=== PATIENT | female | born 1970 | race Hispanic/Latino ===

== ENCOUNTER 2021-02-08 20:53 | Emergency (ER) | payer BC ==
--- OUTSIDE RECORDS SUMMARY | 2021-02-08 20:55 | XMS REPORT | Continuity of Care Document ---
:1970 Author Organization [facility] t Address [address] [place] [address] Care Team Providers Name Role Phone Pranav Peña MD Attending Clinician Problems This patient has no known problems. Allergies, Adverse Reactions, Alerts This patient has no known allergies or adverse reactions. Medications This patient has no known medications. Procedures This patient has no known procedures. Encounters Start End Encounter Admission Attending Care Care Encounter Source Date/Time Date/Time Type Type Clinicians Facility Department ID 2020-01-17 2020-01-17 Emergency CARLOS EDUARDO Peña [id number] 10:08:04 10:53:00 Pranav Diana [id number] [place] [id number] [place] [id number] Results This patient has no known results.
[2021-02-08] MEDS ORDERED: ONDANSETRON 4 MG/2 ML VIAL ONE (21:43)
[2021-02-08] MEDS ORDERED: MORPHINE 2 MG/ML SYR ONE (21:43)
[2021-02-08 21:49] LABS: Protime INR 0.92
[2021-02-08 21:50] LABS: Absolute Lymphocytes (CBC) 3.5 K/uL (0.7-4.9); Basophils % 0.6 % (0-1.3); Hematocrit 41.3 % (36.0-45.0); Lymphocytes % 32.7 % (15.3-44.8); MPV 7.4 fL (7.6-11.3); RBC Red Blood Cell Count 4.47 M/uL (3.86-4.86)
[2021-02-08 22:03] LABS: ALT/SGPT 25 U/L (12-78); AST/SGOT 15 U/L (15-37); Albumin 3.5 g/dL (3.4-5.0); Alkaline Phosphatase 109 U/L (45-117); BUN Blood Urea Nitrogen 16 mg/dL (7-18); Bicarbonate 26 mmol/L (21-32); Bilirubin Direct < 0.1 mg/dL (0-0.2); Bilirubin Total 0.2 mg/dL (0.2-1.0); Glucose Level 108 mg/dL (74-106); Magnesium 1.9 mg/dL (1.8-2.4); NT PRO-BNP 9 pg/mL (<125); Potassium 3.8 mmol/L (3.5-5.1); Protein, Total 7.1 g/dL (6.4-8.2); Sodium Level 141 mmol/L (136-145); Troponin (Emerg Dept Use Only) < 0.02 ng/mL (0.0-0.045)
[2021-02-09 00:41] LABS: Urine Bacteria LOADED /HPF (<20)
[2021-02-09 00:41] LABS: Urine Blood 3+ (NEG); Urine Glucose NEGATIVE (NEG); Urine Protein TRACE (NEG); Urine Specific Gravity 1.025 (1.005-1.030)
--- NOTE | 2021-02-09 00:41 | ER ---
Nurse's Notes [facility] Name: Carolina Rivera Age: 50 yrs Sex: Female : 1970 Arrival Date: 02/08/2021 Time: 20:57 Bed 7 Private MD: Diagnosis: Chest pain, unspecified;Urinary tract infection, site not specified Presentation: 02/08 21:20 Chief complaint: Patient states: Reports chest pain that has been going on for a week ea pt reports her symptoms worsened today. Coronavirus screen: At this time, the client does not indicate any symptoms associated with coronavirus-19. Ebola Screen: No symptoms or risks identified at this time. Initial Sepsis Screen: Does the patient meet any 2 criteria? No. Patient's initial sepsis screen is negative. Does the patient have a suspected source of infection? No. Patient's initial sepsis screen is negative. Risk Assessment: Do you want to hurt yourself or someone else? Patient reports no desire to harm self or others. 21:20 Acuity: DANETTE 3 ea 21:20 Method Of Arrival: Ambulatory ea 21:24 Onset of symptoms was February 08, 2021. ea Historical: - Allergies: 21:20 PENICILLINS; ea - Home Meds: 21:20 None [Active]; ea - PMHx: 21:20 None; ea - PSHx: 21:20 None; ea - Immunization history:: Adult Immunizations up to date. - Social history:: Smoking status: unknown. Screenin:20 Abuse screen: Denies threats or abuse. Nutritional screening: No deficits noted. ea Tuberculosis screening: No symptoms or risk factors identified. Fall Risk IV access (20 points). Assessment: 21:22 General: Appears in no apparent distress. Behavior is calm, cooperative, appropriate ea for age. Pain: Complains of pain in chest. Neuro: Level of Consciousness is awake, alert, obeys commands, Oriented to person, place, time, situation. Cardiovascular: Patient's skin is warm and dry. Respiratory: Airway is patent Respiratory effort is even, unlabored, Respiratory pattern is regular, symmetrical. Derm: Skin is pink, warm \T\ dry. 23:32 Reassessment: Patient and/or family updated on plan of care and expected duration. Pain ea level reassessed. Patient is alert, oriented x 3, equal unlabored respirations, skin warm/dry/pink. 02/09 00:51 Reassessment: Patient and/or family updated on plan of care and expected duration. Pain ea level reassessed. Patient is alert, oriented x 3, equal unlabored respirations, skin warm/dry/pink. Discharge instruction given patient, verbalized the understanding of instruction. Pt left ED ambulatory tolerating well. Vital Signs: 02/08 21:17 BP 169 / 99 LA Sitting (auto/reg); Pulse 84 MON; Resp 20 S; Temp 98.3(O); Pulse Ox 99% ds4 on R/A; Weight 63.5 kg; Height 5 ft. 4 in. (162.56 cm); Pain 5/10; 02/09 00:45 BP 130 / 70; Pulse 80; Resp 18; Pulse Ox 99% ; ea 02/08 21:17 Body Mass Index 24.03 (63.50 kg, 162.56 cm) ds4 ED Course: 02/08 20:57 Patient arrived in ED. am4 21:00 Maximiliano Chandler MD is Attending Physician. 7 21:15 Inserted saline lock: 20 gauge in right forearm, using aseptic technique. Blood ds4 collected. 21:19 Jessica Grissom, RN is Primary Nurse. ea 21:22 Triage completed. ea 21:22 Patient maintains SpO2 saturation greater than 95% on room air. ea 21:22 Patient has correct armband on for positive identification. Call light in reach. ea cafeteria monitor on. Pulse ox on. NIBP on. 21:44 XRAY Chest (1 view) In Process Unspecified. EDMS 02/09 00:40 Apolonia Araujo MD is Referral Physician. 7 00:50 IV discontinued, intact, bleeding controlled, No redness/swelling at site. Pressure ea dressing applied. 00:53 No provider procedures requiring assistance completed. ea Administered Medications: 00:52 Not Given (Patient Refused): morphine 2 mg IVP once; RASS on ADMIN: Combtv4, Very ea Agttd3, Agttd2, Rstlss1, AlertClm0, Drwsy-1, Lt Sdtn-2, Mod Sdtn-3, Dp Sdtn-4, UnArsble-5 00:52 Not Given (Patient Refused): Zofran (Ondansetron) 4 mg IVP once; over 2 minutes jamie Outcome: 00:40 Discharge ordered by . yuan 00:50 Discharged to home ambulatory. jamie 00:50 Condition: stable 00:50 Discharge instructions given to patient, Instructed on discharge instructions, follow up and referral plans. medication usage, Demonstrated understanding of instructions, follow-up care, medications, Prescriptions given X 2. 00:54 Patient left the ED. ea Addendum: 02/12/2021 10:21 Addendum: Culture Results: Positive urine culture. No further action required. Bacteria a a5 sensitive to prescribed antibiotic. Signatures: Dispatcher [employer] EDMS Jennifer Garvin RN RN aa5 Ebenezer Fontanez ds4 Jessica Grissom RN RN ea Holmes, Maurice, MD MD 7 Lizet Malagon am4
--- NOTE | 2021-02-09 00:41 | EDPHYS ---
Physician Documentation [facility] Name: Carolina Rivera Age: 50 yrs Sex: Female : 1970 Arrival Date: 02/08/2021 Time: 20:57 Bed 7 Private MD: ED Physician Maximiliano Chandler HPI: 02/08 21:27 This 50 yrs old Female presents to ER via Ambulatory with complaints of Chest mh7 Pain. 21:27 The patient or guardian reports chest pain that is located primarily in the anterior mh7 chest wall, left. Onset: 3 day(s) ago. 21:27 The pain does not radiate. mh7 21:28 Associated signs and symptoms: Pertinent negatives: abdominal pain, cough, diaphoresis, mh7 dizziness, headache, lower extremity pain, lower extremity swelling, lightheadedness, nausea, near syncope, palpitations, recent travel, shortness of breath, syncope, vomiting. The chest pain is described as a pressure. Duration: The patient or guardian reports multiple episodes, that are intermittent, that wax and wane. Modifying factors: The symptoms are alleviated by nothing. the symptoms are aggravated by nothing. Severity of pain: At its worst the pain was moderate last night, in the emergency department the pain is unchanged. Historical: - Allergies: 21:20 PENICILLINS; ea - Home Meds: 21:20 None [Active]; ea - PMHx: 21:20 None; ea - PSHx: 21:20 None; ea - Immunization history:: Adult Immunizations up to date. - Social history:: Smoking status: unknown. ROS: 21:28 Constitutional: Negative for fever, chills, and weight loss, Eyes: Negative for injury, mh7 pain, redness, and discharge, ENT: Negative for injury, pain, and discharge, Neck: Negative for injury, pain, and swelling, Respiratory: Negative for shortness of breath, cough, wheezing, and pleuritic chest pain, Abdomen/GI: Negative for abdominal pain, nausea, vomiting, diarrhea, and constipation, Back: Negative for injury and pain, : Negative for injury, bleeding, discharge, and swelling, MS/Extremity: Negative for injury and deformity, Skin: Negative for injury, rash, and discoloration, Neuro: Negative for headache, weakness, numbness, tingling, and seizure, Psych: Negative for depression, anxiety, suicide ideation, homicidal ideation, and hallucinations, Allergy/Immunology: Negative for hives, rash, and allergies, Endocrine: Negative for neck swelling, polydipsia, polyuria, polyphagia, and marked weight changes, Hematologic/Lymphatic: Negative for swollen nodes, abnormal bleeding, and unusual bruising. Exam: 21:28 Constitutional: This is a well developed, well nourished patient who is awake, alert, mh7 and in no acute distress. Head/Face: Normocephalic, atraumatic. Eyes: Pupils equal round and reactive to light, extra-ocular motions intact. Lids and lashes normal. Conjunctiva and sclera are non-icteric and not injected. Cornea within normal limits. Periorbital areas with no swelling, redness, or edema. Neck: Trachea midline, no thyromegaly or masses palpated, and no cervical lymphadenopathy. Supple, full range of motion without nuchal rigidity, or vertebral point tenderness. No Meningismus. Chest/axilla: Normal chest wall appearance and motion. Nontender with no deformity. No lesions are appreciated. Cardiovascular: Regular rate and rhythm with a normal S1 and S2. No gallops, murmurs, or rubs. Normal PMI, no JVD. No pulse deficits. Respiratory: Lungs have equal breath sounds bilaterally, clear to auscultation and percussion. No rales, rhonchi or wheezes noted. No increased work of breathing, no retractions or nasal flaring. Abdomen/GI: Soft, non-tender, with normal bowel sounds. No distension or tympany. No guarding or rebound. No evidence of tenderness throughout. Back: No spinal tenderness. No costovertebral tenderness. Full range of motion. Skin: Warm, dry with normal turgor. Normal color with no rashes, no lesions, and no evidence of cellulitis. MS/ Extremity: Pulses equal, no cyanosis. Neurovascular intact. Full, normal range of motion. Neuro: Awake and alert, GCS 15, oriented to person, place, time, and situation. Cranial nerves II-XII grossly intact. Motor strength 5/5 in all extremities. Sensory grossly intact. Cerebellar exam normal. Normal gait. Psych: Awake, alert, with orientation to person, place and time. Behavior, mood, and affect are within normal limits. 02/09 00:42 ECG was reviewed by the Attending Physician. 7 Vital Signs: 02/08 21:17 BP 169 / 99 LA Sitting (auto/reg); Pulse 84 MON; Resp 20 S; Temp 98.3(O); Pulse Ox 99% ds4 on R/A; Weight 63.5 kg; Height 5 ft. 4 in. (162.56 cm); Pain 5/10; 02/09 00:45 BP 130 / 70; Pulse 80; Resp 18; Pulse Ox 99% ; ea 02/08 21:17 Body Mass Index 24.03 (63.50 kg, 162.56 cm) ds4 MDM: 00:36 Differential diagnosis: acute myocardial infarction, acute pericarditis, anxiety, mh7 coronary artery disease chest wall pain, congestive heart failure costochondritis, myocarditis, pericarditis, pleurisy, pneumonia, pneumothorax, pulmonary embolus. HEART Score: History: Moderately Suspicious (1), ECG: Normal (0), Age: > 45 and < 65 years (1), Risk Factors: 1 or 2 risk factors (1), [Active Smoker] Troponin: < or = 1 x Normal Limit (0), Total Score = 3. The patient was given aspirin in the Emergency Department. Data reviewed: vital signs, nurses notes, lab test result(s), cardiac enzymes, CBC, electrolytes, urinalysis, EKG, radiologic studies, plain films. Data interpreted: Pulse oximetry: on room air is 99 %. Interpretation: normal. Counseling: I had a detailed discussion with the patient and/or guardian regarding: the historical points, exam findings, and any diagnostic results supporting the discharge/admit diagnosis, the presence of at least one elevated blood pressure reading (>120/80) during this emergency department visit, lab results, radiology results, to return to the emergency department if symptoms worsen or persist or if there are any questions or concerns that arise at home. Response to treatment: the patient's symptoms have resolved after treatment, the patient's blood pressure is in an acceptable range, mental status has returned to baseline, the patient no longer shows bradycardia, the patient is not short of breath, the patient is not tachycardic, the patient's pain is gone, the patient's temperature has normalized, the patient is now symptom free. Refusal of service: The patient/guardian displays adequate decision making capability and despite a detailed discussion of alternatives, benefits, risks, and consequences refuses: Admission to the hospital for further work-up and treatment. 00:40 Patient medically screened. [facility] 02/08 21:15 Order name: Basic Metabolic Panel; Complete Time: 22:14 [facility] 02/08 21:15 Order name: CBC with Diff; Complete Time: 21:56 [facility] 02/08 21:15 Order name: LFT's; Complete Time: 22:14 [facility] 02/08 21:15 Order name: Magnesium; Complete Time: 22:14 [facility] 02/08 21:15 Order name: NT PRO-BNP; Complete Time: 22:14 [facility] 02/08 21:15 Order name: PT-INR; Complete Time: 23:14 [facility] 02/08 21:15 Order name: Troponin (emerg Dept Use Only); Complete Time: 22:14 [facility] 02/08 22:30 Order name: D-Dimer [facility] 02/08 22:43 Order name: D-Dimer; Complete Time: 23:14 [facility] 02/08 23:33 Order name: Troponin (emerg Dept Use Only); Complete Time: 00:33 ea 02/08 23:59 Order name: Urine Dipstick--Ancillary (enter results) [facility] 02/08 23:59 Order name: Urine --Ancillary (enter results) [facility] 02/09 00:01 Order name: Urine Microscopic Only [facility] 02/08 21:15 Order name: XRAY Chest (1 view) [facility] 02/08 21:15 Order name: EKG; Complete Time: 21:16 [facility] 02/08 21:15 Order name: Cardiac monitoring; Complete Time: 21:19 [facility] 02/08 21:15 Order name: EKG - Nurse/Tech; Complete Time: 21:19 [facility] 02/08 21:15 Order name: IV Saline Lock; Complete Time: 21:19 [facility] 02/08 21:15 Order name: Labs collected and sent; Complete Time: 21:20 [facility] 02/08 21:15 Order name: O2 Per Protocol; Complete Time: 21:19 [facility] 02/08 21:15 Order name: O2 Sat Monitoring; Complete Time: 21:19 [facility] 02/08 21:15 Order name: Urine Dipstick-Ancillary (obtain specimen); Complete Time: 23:58 [facility] 02/08 21:15 Order name: Urine Test (obtain specimen); Complete Time: 23:58 [facility] 02/09 00:43 Order name: Urine Culture [facility] EC:42 Rate is 70 beats/min. Rhythm is regular, Normal Sinus Rhythm. QRS [place] is Normal. [place] mh7 interval is normal. QRS interval is normal. QT interval is normal. No Q waves. T waves are Normal. No ST changes noted. Clinical impression: Normal ECG. Administered Medications: 00:52 Not Given (Patient Refused): morphine 2 mg IVP once; RASS on ADMIN: Combtv4, Very ea Agttd3, Agttd2, Rstlss1, AlertClm0, Drwsy-1, Lt Sdtn-2, Mod Sdtn-3, Dp Sdtn-4, UnArsble-5 00:52 Not Given (Patient Refused): Zofran (Ondansetron) 4 mg IVP once; over 2 minutes ea Disposition: 02/09/21 00:40 Discharged to Home. Impression: Chest pain, unspecified, Urinary tract infection, site not specified. - Condition is Stable. - Discharge Instructions: Urinary Tract Infection, Adult, [id number], Nonspecific Chest Pain, [id number]. - Prescriptions for Pyridium 200 mg Oral Tablet - take 1 tablet by ORAL route every 8 hours for 2 days; 6 tablet. Macrobid 100 mg Oral Capsule - take 1 capsule by ORAL route every 12 hours for 7 days; 14 capsule. - Work release form, Medication Reconciliation Form, Thank You Letter, Antibiotic Education, Prescription Opioid Use form. - Follow up: Private Physician; When: 1 - 2 days; Reason: Worsening of condition, Recheck today's complaints, Continuance of care, Re-evaluation by your physician. Follow up: Apolonia Araujo MD; When: 1 - 2 days; Reason: Worsening of condition, Recheck today's complaints, Continuance of care. - Problem is an ongoing problem. - Symptoms have improved. Signatures: Dispatcher [employer] [facility] Jessica Grissom RN RN ea Holmes, Maurice, MD MD 7 Corrections: (The following items were deleted from the chart) 02/08 22:43 22:41 D-Dimer ordered. [facility] 02/09 00:54 00:40 02/09/2021 00:40 Discharged to Home. Impression: Chest pain, unspecified; Urinary ea tract infection, site not specified. Condition is Stable. Forms are Medication Reconciliation Form, Thank You Letter, Antibiotic Education, Prescription Opioid Use. Follow up: Private Physician; When: 1 - 2 days; Reason: Worsening of condition, Recheck today's complaints, Continuance of care, Re-evaluation by your physician. Follow up: Apolonia Araujo; When: 1 - 2 days; Reason: Worsening of condition, Recheck today's complaints, Continuance of care. Problem is an ongoing problem. Symptoms have improved. mh7
[2021-02-09 00:58] VITALS: TEMP 98.3; O2SAT 99
[2021-02-09 00:59] VITALS: BP 130/70
--- NOTE | 2021-02-09 13:54 | RAD REPORT ---
EXAM DESCRIPTION: Chest Single View CLINICAL HISTORY: 50 years Female CHEST PAIN COMPARISON: None. FINDINGS: The cardiomediastinal silhouette appears unremarkable. No consolidating infiltrates or pleural effusions. No pneumothorax. IMPRESSION: No acute abnormality is identified. Electronically signed by: Joon Galvin MD 02/08/2021 10:40 PM CDT Due to temporary technical issues with the PACS/Fluency reporting system, reports are being signed by the in house radiologist without review as a courtesy to ensure prompt reporting. The interpreting r adiologist is fully responsible for the content of the report.
== END 2021-02-09 00:54 | disposition home or self-care (01) ==
LOC: ER 20:53
DX: R07.9 Chest pain, unspecified (principal); N39.0 Urinary tract infection, site not specified; Z88.0 Allergy status to penicillin
CPT/HCPCS: 36415; 71045; 80048; 80076; 81003; 81015; 81025; 83735; 83880; 84484; 85025; 85379; 85610; 87077; 87086; 87088; 87186; 93005; 99285; J2270; J2405

== ENCOUNTER 2022-11-09 18:21 | Emergency (ER) | payer OTHER ==
--- OUTSIDE RECORDS SUMMARY | 2022-11-09 18:25 | XMS REPORT | Continuity of Care Document ---
:1970 Author Organization [facility] t Address [address] [place] [address] Care Team Providers Name Role Phone Maria De Jesus MARISCAL, Marleni Primary Care Physician [phone] CARSON QUINTANA Attending Clinician Unavailable Pranav Peña MD Attending Clinician Payers Payer Name Policy Type Policy Number Effective Date Expiration Date S [facility] [id number] 2019 00:00:00 Problems This patient has no known problems. Allergies, Adverse Reactions, Alerts Allergy Allergy Status Severity Reaction(s) Onset Inactive Treating Comm ents Source Name Type Date Date Clinician Penicill Propensi Active 2021-11 ins - ty to 0-03 CLASS adverse 00:00: reaction 00 to drug PENICILL DRUG Active [facility] IN INGREDI 2-27 ity of 00:00: [address] Penicill Propensi Active ins ty to 5-03 adverse 00:00: reaction 00 to drug NO KNOWN Drug Active Univers ALLERGIE Class ity of S [facility] Medications Ordered Filled Start Stop Current Ordering Indication Dosage Frequency Signature Comments Components Source Medication Medication Date Date Medication? Clinician (SIG) Name Name TAKE 1 2021-11 No TABLET 1-11 DAILY. 00:00: 00 Dose 2021-0 No Unknown 4-26 00:00: 00 Dose 2021-0 No Unknown 4-26 00:00: 00 Dose 2021-0 No Unknown 4-26 00:00: 00 Dose 2021-0 No Unknown 4-26 00:00: 00 Dose 2022-0 No Unknown 4-26 00:00: 00 Dose 2022-0 No Unknown 4-26 00:00: 00 Dose 2022-0 No Unknown 4-26 00:00: 00 Dose 2022-0 No Unknown 4-26 00:00: 00 Dose 2022-0 No Unknown 4-26 00:00: 00 Dose 2022-0 No Unknown 4-26 00:00: 00 Dose 2022-0 No Unknown 4-26 00:00: 00 Dose 2022-0 No Unknown 4-26 00:00: 00 Dose 2022-0 No Unknown 4-20 00:00: 00 Dose 2022-0 No Unknown 4-20 00:00: 00 Dose 2022-0 No Unknown 4-20 00:00: 00 Dose 2022-0 No Unknown 4-20 00:00: 00 Dose 2022-0 No Unknown 4-20 00:00: 00 Dose 2022-0 No Unknown 4-20 00:00: 00 Dose 2022-0 No Unknown 4-20 00:00: 00 Dose 2022-0 No Unknown 4-20 00:00: 00 Dose 2022-0 No Unknown 4-20 00:00: 00 Dose 2022-0 No Unknown 4-20 00:00: 00 Dose 2022-0 No Unknown 4-20 00:00: 00 Dose 2022-0 No Unknown 4-20 00:00: 00 Dose 2022-0 No Unknown 4-20 00:00: 00 Dose 2022-0 No Unknown 4-20 00:00: 00 Dose 2022-0 No Unknown 4-20 00:00: 00 Dose 2022-0 No Unknown 4-20 00:00: 00 Dose 2022-0 No Unknown 4-20 00:00: 00 Dose 2022-0 No Unknown 4-20 00:00: 00 Dose 2022-0 No Unknown 4-20 00:00: 00 Dose 2022-0 No Unknown 4-20 00:00: 00 Dose 2022-0 No Unknown 4-20 00:00: 00 Dose 2022-0 No Unknown 4-20 00:00: 00 Dose 2022-0 No Unknown 4-20 00:00: 00 Dose 2022-0 No Unknown 4-20 00:00: 00 Dose 2022-0 No Unknown 4-20 00:00: 00 Dose 2022-0 No Unknown 4-20 00:00: 00 Dose 2022-0 No Unknown 4-20 00:00: 00 Dose 2022-0 No Unknown 4-20 00:00: 00 Dose 2022-0 No Unknown 4-20 00:00: 00 Dose 2022-0 No Unknown 4-20 00:00: 00 Dose 2022-0 No Unknown 4-20 00:00: 00 Dose 2022-0 No Unknown 4-20 00:00: 00 Dose 2022-0 No Unknown 4-20 00:00: 00 Dose 2022-0 No Unknown 4-20 00:00: 00 Dose 2022-0 No Unknown 4-20 00:00: 00 Dose 2022-0 No Unknown 4-20 00:00: 00 Dose 2022-0 No Unknown 4-20 00:00: 00 Dose 2022-0 No Unknown 4-20 00:00: 00 Dose 2022-0 No Unknown 4-20 00:00: 00 Dose 2022-0 No Unknown 4-20 00:00: 00 Dose 2022-0 No Unknown 4-20 00:00: 00 Dose 2022-0 No Unknown 4-20 00:00: 00 Dose 2022-0 No Unknown 4-20 00:00: 00 Dose 2022-0 No Unknown 4-20 00:00: 00 Dose 2022-0 No Unknown 4-20 00:00: 00 Dose 2022-0 No Unknown 4-20 00:00: 00 Dose 2022-0 No Unknown 4-20 00:00: 00 Dose 2022-0 No Unknown 4-20 00:00: 00 Dose 2022-0 No Unknown 4-20 00:00: 00 Dose 2022-0 No Unknown 4-20 00:00: 00 Dose 2022-0 No Unknown 4-20 00:00: 00 Dose 2022-0 No Unknown 4-20 00:00: 00 Dose 2022-0 No Unknown 4-20 00:00: 00 Dose 2022-0 No Unknown 4-20 00:00: 00 Dose 2022-0 No Unknown 4-19 00:00: 00 Dose 2022-0 No Unknown 4-19 00:00: 00 Dose 2022-0 No Unknown 4-19 00:00: 00 atorvastati 2022-0 No 1mg n 10 mg 4-15 tablet 00:00: 00 atorvastati 2022-0 No 1mg n 10 mg 4-15 tablet 00:00: 00 atorvastati 2022-0 No 1mg n 10 mg 4-15 tablet 00:00: 00 Dose 2022-0 No Unknown 4-14 00:00: 00 Dose 2022-0 No Unknown 4-14 00:00: 00 Dose 2022-0 No Unknown 4-14 00:00: 00 Dose 2022-0 No Unknown 4-14 00:00: 00 Dose 2022-0 No Unknown 4-14 00:00: 00 Dose 2022-0 No Unknown 4-14 00:00: 00 Dose 2022-0 No Unknown 4-14 00:00: 00 Dose 2022-0 No Unknown 4-14 00:00: 00 Dose 2022-0 No Unknown 4-14 00:00: 00 Dose 2022-0 No Unknown 4-14 00:00: 00 Dose 2022-0 No Unknown 4-14 00:00: 00 Dose 2022-0 No Unknown 4-14 00:00: 00 Dose 2022-0 No Unknown 4-14 00:00: 00 Dose 2022-0 No Unknown 4-14 00:00: 00 Dose 2022-0 No Unknown 4-14 00:00: 00 Dose 2022-0 No Unknown 4-14 00:00: 00 Dose 2022-0 No Unknown 4-14 00:00: 00 Dose 2022-0 No Unknown 4-14 00:00: 00 Dose 2022-0 No Unknown 4-14 00:00: 00 Dose 2022-0 No Unknown 4-14 00:00: 00 Dose 2022-0 No Unknown 4-14 00:00: 00 Dose 2022-0 No Unknown 4-14 00:00: 00 Dose 2022-0 No Unknown 4-14 00:00: 00 Dose 2022-0 No Unknown 4-14 00:00: 00 Dose 2022-0 No Unknown 4-14 00:00: 00 Dose 2022-0 No Unknown 4-14 00:00: 00 Dose 2022-0 No Unknown 4-14 00:00: 00 Dose 2022-0 No Unknown 4-14 00:00: 00 Dose 2022-0 No Unknown 4-14 00:00: 00 Dose 2022-0 No Unknown 4-14 00:00: 00 Dose 2022-0 No Unknown 4-14 00:00: 00 Dose 2022-0 No Unknown 4-14 00:00: 00 Dose 2022-0 No Unknown 4-14 00:00: 00 Dose 2022-0 No Unknown 4-14 00:00: 00 Dose 2022-0 No Unknown 4-14 00:00: 00 Dose 2022-0 No Unknown 4-14 00:00: 00 Dose 2022-0 No Unknown 4-14 00:00: 00 Dose 2022-0 No Unknown 4-14 00:00: 00 Dose 2022-0 No Unknown 4-14 00:00: 00 Dose 2022-0 No Unknown 4-14 00:00: 00 Dose 2022-0 No Unknown 4-14 00:00: 00 Dose 2022-0 No Unknown 4-14 00:00: 00 Dose 2022-0 No Unknown 4-14 00:00: 00 Dose 2022-0 No Unknown 4-14 00:00: 00 Dose 2022-0 No Unknown 4-14 00:00: 00 Dose 2022-0 No Unknown 4-14 00:00: 00 Dose 2022-0 No Unknown 4-14 00:00: 00 Dose 2022-0 No Unknown 4-14 00:00: 00 Dose 2022-0 No Unknown 4-14 00:00: 00 Dose 2022-0 No Unknown 4-14 00:00: 00 Dose 2022-0 No Unknown 4-14 00:00: 00 Dose 2022-0 No Unknown 4-14 00:00: 00 Dose 2022-0 No Unknown 4-14 00:00: 00 Dose 2022-0 No Unknown 4-14 00:00: 00 Dose 2022-0 No Unknown 4-14 00:00: 00 Dose 2022-0 No Unknown 4-14 00:00: 00 Dose 2022-0 No Unknown 4-14 00:00: 00 Dose 2022-0 No Unknown 4-14 00:00: 00 Dose 2022-0 No Unknown 4-14 00:00: 00 Dose 2022-0 No Unknown 4-14 00:00: 00 Dose 2022-0 No Unknown 4-14 00:00: 00 Dose 2022-0 No Unknown 4-14 00:00: 00 Dose 2022-0 No Unknown 4-14 00:00: 00 Dose 2022-0 No Unknown 4-14 00:00: 00 Dose 2022-0 No Unknown 4-14 00:00: 00 Dose 2022-0 No Unknown 4-14 00:00: 00 Dose 2022-0 No Unknown 4-14 00:00: 00 Dose 2022-0 No Unknown 4-14 00:00: 00 TAKE 1 2022-0 No TABLET 4-14 DAILY. 00:00: 00 Dose 2022-0 No Unknown 4-14 00:00: 00 Dose 2022-0 No Unknown 4-14 00:00: 00 Dose 2022-0 No Unknown 4-14 00:00: 00 Dose 2022-0 No Unknown 4-14 00:00: 00 Dose 2022-0 No Unknown 4-14 00:00: 00 Dose 2022-0 No Unknown 4-14 00:00: 00 Dose 2022-0 No Unknown 4-14 00:00: 00 Dose 2022-0 No Unknown 4-14 00:00: 00 Dose 2022-0 No Unknown 4-14 00:00: 00 Dose 2022-0 No Unknown 4-14 00:00: 00 Dose 2022-0 No Unknown 4-14 00:00: 00 Dose 2022-0 No Unknown 4-14 00:00: 00 Dose 2022-0 No Unknown 4-14 00:00: 00 Dose 2022-0 No Unknown 4-14 00:00: 00 Dose 2022-0 No Unknown 4-14 00:00: 00 Dose 2022-0 No Unknown 4-14 00:00: 00 Dose 2022-0 No Unknown 4-14 00:00: 00 Dose 2022-0 No Unknown 4-14 00:00: 00 Dose 2022-0 No Unknown 4-14 00:00: 00 Dose 2022-0 No Unknown 4-14 00:00: 00 Dose 2022-0 No Unknown 4-14 00:00: 00 Dose 2022-0 No Unknown 4-14 00:00: 00 Dose 2022-0 No Unknown 4-14 00:00: 00 Dose 2022-0 No Unknown 4-14 00:00: 00 Dose 2022-0 No Unknown 4-14 00:00: 00 Dose 2022-0 No Unknown 4-14 00:00: 00 Dose 2022-0 No Unknown 4-14 00:00: 00 Dose 2022-0 No Unknown 4-14 00:00: 00 Dose 2022-0 No Unknown 4-14 00:00: 00 Dose 2022-0 No Unknown 4-14 00:00: 00 Dose 2022-0 No Unknown 4-14 00:00: 00 Dose 2022-0 No Unknown 4-14 00:00: 00 Dose 2022-0 No Unknown 4-14 00:00: 00 Dose 2022-0 No Unknown 4-14 00:00: 00 Dose 2022-0 No Unknown 4-14 00:00: 00 Dose 2022-0 No Unknown 4-14 00:00: 00 Dose 2022-0 No Unknown 4-14 00:00: 00 Dose 2022-0 No Unknown 4-14 00:00: 00 Dose 2022-0 No Unknown 4-14 00:00: 00 Dose 2022-0 No Unknown 4-14 00:00: 00 Dose 2022-0 No Unknown 4-14 00:00: 00 Dose 2022-0 No Unknown 4-14 00:00: 00 Dose 2022-0 No Unknown 4-14 00:00: 00 Dose 2022-0 No Unknown 4-14 00:00: 00 Dose 2022-0 No Unknown 4-14 00:00: 00 Dose 2022-0 No Unknown 4-14 00:00: 00 Dose 2022-0 No Unknown 4-14 00:00: 00 Dose 2022-0 No Unknown 4-14 00:00: 00 Dose 2022-0 No Unknown 4-14 00:00: 00 Dose 2022-0 No Unknown 4-14 00:00: 00 Dose 2022-0 No Unknown 4-14 00:00: 00 Dose 2022-0 No Unknown 4-14 00:00: 00 Dose 2022-0 No Unknown 4-14 00:00: 00 Dose 2022-0 No Unknown 4-14 00:00: 00 Dose 2022-0 No Unknown 4-14 00:00: 00 Dose 2022-0 No Unknown 4-14 00:00: 00 Dose 2022-0 No Unknown 4-14 00:00: 00 Dose 2022-0 No Unknown 4-14 00:00: 00 Dose 2022-0 No Unknown 4-14 00:00: 00 Dose 2022-0 No Unknown 4-14 00:00: 00 Dose 2022-0 No Unknown 4-14 00:00: 00 Dose 2022-0 No Unknown 4-14 00:00: 00 Dose 2022-0 No Unknown 4-14 00:00: 00 Dose 2022-0 No Unknown 4-14 00:00: 00 Dose 2022-0 No Unknown 4-14 00:00: 00 Dose 2022-0 No Unknown 4-14 00:00: 00 Dose 2022-0 No Unknown 4-14 00:00: 00 Dose 2022-0 No Unknown 4-14 00:00: 00 Dose 2022-0 No Unknown 4-14 00:00: 00 Dose 2022-0 No Unknown 4-14 00:00: 00 Dose 2022-0 No Unknown 4-14 00:00: 00 Dose 2022-0 No Unknown 4-14 00:00: 00 Dose 2022-0 No Unknown 4-14 00:00: 00 Dose 2022-0 No Unknown 4-14 00:00: 00 Dose 2022-0 No Unknown 4-14 00:00: 00 Dose 2022-0 No Unknown 4-14 00:00: 00 Dose 2022-0 No Unknown 4-14 00:00: 00 Dose 2022-0 No Unknown 4-14 00:00: 00 Dose 2022-0 No Unknown 4-14 00:00: 00 Dose 2022-0 No Unknown 4-14 00:00: 00 Dose 2022-0 No Unknown 4-14 00:00: 00 Dose 2022-0 No Unknown 4-14 00:00: 00 Dose 2022-0 No Unknown 4-14 00:00: 00 Dose 2022-0 No Unknown 4-14 00:00: 00 Dose 2022-0 No Unknown 4-14 00:00: 00 Dose 2022-0 No Unknown 4-14 00:00: 00 Dose 2022-0 No Unknown 4-14 00:00: 00 Dose 2022-0 No Unknown 4-14 00:00: 00 Dose 2022-0 No Unknown 4-14 00:00: 00 Dose 2022-0 No Unknown 4-14 00:00: 00 Dose 2022-0 No Unknown 4-14 00:00: 00 Dose 2022-0 No Unknown 4-14 00:00: 00 Dose 2022-0 No Unknown 4-14 00:00: 00 Dose 2022-0 No Unknown 4-14 00:00: 00 Dose 2022-0 No Unknown 4-14 00:00: 00 Dose 2022-0 No Unknown 4-14 00:00: 00 Dose 2022-0 No Unknown 4-14 00:00: 00 Dose 2022-0 No Unknown 4-14 00:00: 00 Dose 2022-0 No Unknown 4-14 00:00: 00 Dose 2022-0 No Unknown 4-14 00:00: 00 Dose 2022-0 No Unknown 4-14 00:00: 00 Dose 2022-0 No Unknown 4-14 00:00: 00 Dose 2022-0 No Unknown 4-14 00:00: 00 Dose 2022-0 No Unknown 4-14 00:00: 00 Dose 2022-0 No Unknown 4-14 00:00: 00 Dose 2022-0 No Unknown 4-13 00:00: 00 Dose 2022-0 No Unknown 4-13 00:00: 00 Dose 2022-0 No Unknown 4-13 00:00: 00 Dose 2022-0 No Unknown 4-13 00:00: 00 Dose 2022-0 No Unknown 4-13 00:00: 00 Dose 2022-0 No Unknown 4-13 00:00: 00 Dose 2022-0 No Unknown 4-13 00:00: 00 Dose 2022-0 No Unknown 4-13 00:00: 00 Dose 2022-0 No Unknown 4-13 00:00: 00 Dose 2022-0 No Unknown 4-13 00:00: 00 Dose 2022-0 No Unknown 4-13 00:00: 00 Dose 2022-0 No Unknown 4-13 00:00: 00 Dose 2022-0 No Unknown 4-13 00:00: 00 Dose 2022-0 No Unknown 4-13 00:00: 00 Dose 2022-0 No Unknown 4-13 00:00: 00 Dose 2022-0 No Unknown 4-13 00:00: 00 Dose 2022-0 No Unknown 4-13 00:00: 00 Dose 2022-0 No Unknown 4-13 00:00: 00 Dose 2022-0 No Unknown 4-13 00:00: 00 Dose 2022-0 No Unknown 4-13 00:00: 00 Dose 2022-0 No Unknown 4-13 00:00: 00 Dose 2022-0 No Unknown 4-13 00:00: 00 Dose 2022-0 No Unknown 4-13 00:00: 00 Dose 2022-0 No Unknown 4-13 00:00: 00 Dose 2022-0 No Unknown 4-13 00:00: 00 Dose 2022-0 No Unknown 4-13 00:00: 00 Dose 2022-0 No Unknown 4-13 00:00: 00 Dose 2022-0 No Unknown 4-13 00:00: 00 Dose 2022-0 No Unknown 4-13 00:00: 00 Dose 2022-0 No Unknown 4-13 00:00: 00 Dose 2022-0 No Unknown 4-13 00:00: 00 Dose 2022-0 No Unknown 4-13 00:00: 00 Dose 2022-0 No Unknown 4-13 00:00: 00 Dose 2022-0 No Unknown 4-13 00:00: 00 Dose 2022-0 No Unknown 4-13 00:00: 00 Dose 2022-0 No Unknown 4-13 00:00: 00 Dose 2021-0 No Unknown 4-07 00:00: 00 Dose 2021-0 No Unknown 4-07 00:00: 00 Dose 2021-0 No Unknown 4-07 00:00: 00 lisinopril 2021-0 No 1mg 20 mg 4-07 tablet 00:00: 00 Dose 2021-0 No Unknown 4-07 00:00: 00 Dose 2021-0 No Unknown 4-07 00:00: 00 Dose 2021-0 No Unknown 4-07 00:00: 00 lisinopril 2021-0 No 1mg 20 mg 4-07 tablet 00:00: 00 TAKE 1 1-0 No TABLET 4-07 DAILY. 00:00: 00 Dose 2021-0 No Unknown 4-07 00:00: 00 Dose 2021-0 No Unknown 4-07 00:00: 00 lisinopril 2021-0 No 1mg 20 mg 4-07 tablet 00:00: 00 lisinopril 2021-0 No 1mg 20 mg 3-24 tablet 00:00: 00 Dose 2021-0 No Unknown 3-24 00:00: 00 Dose 2021-0 No Unknown 3-24 00:00: 00 lisinopril 2021-0 No 1mg 20 mg 3-24 tablet 00:00: 00 Dose 2021-0 No Unknown 3-24 00:00: 00 Dose 2021-0 No Unknown 3-24 00:00: 00 lisinopril 2020-0 No 1mg 20 mg 3-24 tablet 00:00: 00 Dose 2020-0 No Unknown 3-24 00:00: 00 Dose 2020-0 No Unknown 3-24 00:00: 00 Vital Signs Vital Name Observation Time Observation Value Comments Source BP Systolic 2022-10-01 16:41:00 131 mm[Hg] BP Diastolic 2022-10-01 16:41:00 89 mm[Hg] Weight Measured 2022-10-01 16:41:00 153.60 pounds Height Measured 2022-10-01 16:41:00 64.41 inches Body Temperature 2022-10-01 16:41:00 98.60 degrees Heart Rate 2022-10-01 16:41:00 88.00 /min Respiratory Rate 2022-10-01 16:41:00 18.00 /min BP Systolic 2022-08-26 16:15:00 116 mm[Hg] BP Diastolic 2022-08-26 16:15:00 79 mm[Hg] Weight Measured 2022-08-26 16:15:00 151.00 pounds Height Measured 2022-08-26 16:15:00 64.41 inches Body Temperature 2022-08-26 16:15:00 97.80 degrees Heart Rate 2022-08-26 16:15:00 97.00 /min Respiratory Rate 2022-08-26 16:15:00 BP Systolic 2022-08-23 17:27:00 119 mm[Hg] BP Diastolic 2022-08-23 17:27:00 75 mm[Hg] Weight Measured 2022-08-23 17:27:00 153.20 pounds Height Measured 2022-08-23 17:27:00 64.41 inches Body Temperature 2022-08-23 17:27:00 98.40 degrees Heart Rate 2022-08-23 17:27:00 80.00 /min Respiratory Rate 2022-08-23 17:27:00 16.00 /min BP Systolic 2022-03-04 08:20:00 135 mm[Hg] BP Diastolic 2022-03-04 08:20:00 89 mm[Hg] Weight Measured 2022-03-04 08:20:00 154.40 pounds Height Measured 2022-03-04 08:20:00 64.41 inches Body Temperature 2022-03-04 08:20:00 98.40 degrees Heart Rate 2022-03-04 08:20:00 77.00 /min Respiratory Rate 2022-03-04 08:20:00 BP Systolic 2021-02-25 14:23:00 121 mm[Hg] BP Diastolic 2021-02-25 14:23:00 82 mm[Hg] Weight Measured 2021-02-25 14:23:00 155.20 pounds Height Measured 2021-02-25 14:23:00 64.41 inches Body Temperature 2021-02-25 14:23:00 98.10 degrees Heart Rate 2021-02-25 14:23:00 94.00 /min Respiratory Rate 2021-02-25 14:23:00 16.00 /min BP Systolic 2021-02-11 11:51:00 157 mm[Hg] BP Diastolic 2021-02-11 11:51:00 97 mm[Hg] Weight Measured 2021-02-11 11:51:00 156.00 pounds Height Measured 2021-02-11 11:51:00 64.41 inches Body Temperature 2021-02-11 11:51:00 99.14 degrees Heart Rate 2021-02-11 11:51:00 83.00 /min Respiratory Rate 2021-02-11 11:51:00 17.00 /min BP Systolic 2016-03-23 16:29:00 149 mm[Hg] BP Diastolic 2016-03-23 16:29:00 95 mm[Hg] Weight Measured 2016-03-23 16:29:00 122.80 pounds Height Measured 2016-03-23 16:29:00 63.74 inches Body Temperature 2016-03-23 16:29:00 98.00 degrees Heart Rate 2016-03-23 16:29:00 73.00 /min Respiratory Rate 2016-03-23 16:29:00 16.00 /min Procedures Procedure Date / Time Performed Performing Clinician Sourc e Ekg W/ At Least 12 Leads W/ I r 2022-03-04 00:00:00 90426 - Removal Of Impacted Cerumen 2021-02-11 00:00:00 Using Irrigation/lavage Plan of Care Planned Activity Planned Date Details Comments Source Goal Plan of Care Note [code = 05695-5] Goal Plan of Care Note [code = 10150-0] Goal Plan of Care Note [code = 30133-6] Goal Plan of Care Note [code = 90488-9] Goal Plan of Care Note [code = 83770-4] Goal Plan of Care Note [code = 19682-6] Goal Plan of Care Note [code = 20370-2] Goal Plan of Care Note [code = 44865-7] Goal Plan of Care Note [code = 01656-4] Goal Plan of Care Note [code = 96387-0] Goal Plan of Care Note [code = 75243-8] Goal Plan of Care Note [code = 65375-4] Goal Plan of Care Note [code = 22045-0] Goal Plan of Care Note [code = 17149-7] Goal Plan of Care Note [code = 01657-8] Goal Plan of Care Note [code = 72703-9] Goal Plan of Care Note [code = 08708-7] Goal Plan of Care Note [code = 53888-8] Goal Plan of Care Note [code = 81161-1] Goal Plan of Care Note [code = 81960-9] Goal Plan of Care Note [code = 36636-4] Goal Plan of Care Note [code = 05820-7] Goal Plan of Care Note [code = 37573-5] Goal Plan of Care Note [code = 71567-0] Goal Plan of Care Note [code = 77923-9] Goal Plan of Care Note [code = 91509-5] Goal Plan of Care Note [code = 71904-9] Goal Plan of Care Note [code = 74951-9] Goal Plan of Care Note [code = 80896-7] Goal Plan of Care Note [code = 19430-4] Goal Plan of Care Note [code = 99972-7] Goal Plan of Care Note [code = 40173-7] Goal Plan of Care Note [code = 49305-1] Goal Plan of Care Note [code = 65199-6] Goal Plan of Care Note [code = 77220-0] Goal Plan of Care Note [code = 36308-0] Goal Plan of Care Note [code = 88507-0] Goal Plan of Care Note [code = 08436-8] Goal Plan of Care Note [code = 62811-8] Goal Plan of Care Note [code = 73388-1] Goal Plan of Care Note [code = 47882-7] Goal Plan of Care Note [code = 89772-9] Goal Plan of Care Note [code = 59530-3] Goal Plan of Care Note [code = 25394-4] Encounters Start End Encounter Admission Attending Care Care Encounter Source Date/Time Date/Time Type Type Clinicians Facility Department ID 2022-11-09 2022-11-09 Outpatient SFA SFA [id number] Shmuel 16:26:02 16:26:02 1220 F Nacho 2022-10-01 2022-10-01 Outpatient SFA SFA [id number] Shmuel 16:35:49 16:35:49 1111 F Nacho 2022-10-01 2022-10-01 Outpatient [id number] 00:00:00 00:00:00 Visit [id number] 562-48ca-b -[id number]-e53 [id number] [id number] 2c04b2 2022-08-26 2022-08-26 Outpatient SFA SFA [id number] Shmuel 16:08:31 16:08:31 1006 F Nacho 2022-08-26 2022-08-26 Outpatient [id number] 00:00:00 00:00:00 Visit 7l6t-56ar c6i-04bc-e -bca2-802 ca2-802dfc tzi043x2h 035a2d 2022-08-24 2022-08-24 Outpatient SFA SFA [id number] Shmuel 09:21:51 09:21:51 1004 F Nacho 2022-08-23 2022-08-23 Outpatient SFA SFA [id number] Shmuel 15:41:04 15:41:04 1003 F Nacho 2022-08-23 2022-08-23 Outpatient [id number] 00:00:00 00:00:00 Visit [id number] 313-41b4-b -sh80-936 k84-254jm1 es75h4mv8 3e8bb3 2021-06-08 2021-06-08 Emergency X LILIAN, [facility] ERT [id number] [facility] 18:35:00 18:35:00 [facility] 2020-01-17 2020-01-17 Emergency Peña, [facility] [id number] 10:08:04 10:53:00 Pranav Diana [id number] Melvin [id number] [place]dock [id number] 2020-01-17 2020-01-17 Emergency X [facility] ERT [id number] [facility] 09:56:00 09:56:00 [facility] Results Test Description Test Time Test Comments Results Result Comments Source TSH, THIRD GENERATION 2022-03-05 05:03:02 Test Item Value Reference Range Interpretation Comme nts TSH, THIRD GENERATION (test 1.820 UIU/ML 0.400-4.100 UNLESS OTHERWISE INDICATED, code = 2821) ALL TESTING PER FORMED ATCLINICAL PATH OLOGY [facility], [place] 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 [id number] LIPID [id number] 04:36:14 Test Item Value Reference Range Interpretation Comments CHOLESTEROL (test 190 MG/DL <200 code = 2210) TRIGLYCERIDES (test 217 MG/DL <150 H code = 2232) HDL CHOLESTEROL (test 46 MG/DL >39 code = 2220) CALC LDL CHOL (test 110 MG/DL <100 H NOTE: C ALCULATED LDL code = 2237) IS BASED ON DENISSE-REICH METHOD WHICHINCLUDES ADJUSTABLE TRIGLYCERIDE:VL DL CHOLESTEROL RAT IO.THIS FACTOR VARIES B Y MEASURED TRIGLY CERIDE AND NON-HDLCHOL ESTEROL CONCENTRATIONS WITH INCREASED CALCU LATED LDL SEENIN HIGH ER TRIGLYCERIDE OR LOWER NON-HDL SPECIME NS. FOR MOREINFORMATION , SEE CLIENT ANNOUNCE MENT AT [email or web address] [email or web address] LDL/HDL 2.39 RATIO <3.22 (test code = 2238) COMPREHENSIVE METABOLIC [id number] 04:36:14 Test Item Value Reference Range Interpretation Comments GLUCOSE (test code = 95 MG/DL 70-99 2217) BUN (test code = 9 MG/DL 6-20 2207) CREATININE (test 0.61 MG/DL 0.60-1.30 code = 2213) eGFR (2020 CKD-EPI) 109 >60 (test code = 17388) ML/MIN/1.73 CALC BUN/CREAT (test 15 RATIO 6-28 code = 2235) SODIUM (test code = 139 MEQ/L 511-675 3258) POTASSIUM (test code 4.4 MEQ/L 3.5-5.4 = 2227) CHLORIDE (test code 103 MEQ/L 95-107 = 2214) CARBON DIOXIDE (test 23 MEQ/L 19-31 code = 2205) CALCIUM (test code = 9.7 MG/DL 8.5-10.5 2208) PROTEIN, TOTAL (test 6.8 G/DL 6.1-8.3 code = 2228) ALBUMIN (test code = 4.5 G/DL 3.5-5.2 2200) CALC GLOBULIN (test 2.3 G/DL 1.9-3.7 code = 2239) CALC A/G RATIO (test 2.0 RATIO 1.0-2.6 code = 2233) BILIRUBIN, TOTAL 0.3 MG/DL See_Comment [Automated message] (test code = 2206) The syste m which generated this result transmit selvin reference range : <=1.2. The refe rence range was not u sed to interpret th is result as normal/abnormal . ALKALINE PHOSPHATASE 97 U/L 40-128 (test code = 2203) AST (test code = 13 U/L 9-40 2217) ALT (test code = 15 U/L 5-40 2218) CBC W/AUTO DIFF WITH [id number] 03:33:13 Test Item Value Reference Range Interpretation Comments WBC (test code = 8.7 K/UL 3.5-11.0 1001) RBC (test code = 4.42 M/UL 3.80-5.40 1002) HEMOGLOBIN (test code 14.5 G/DL 11.5-15.5 = 1003) HEMATOCRIT (test code 40.4 % 34.0-45.0 = 1004) MCV (test code = 91.4 fL 80.0-99.0 1005) MCH (test code = 32.8 PG 25.0-33.0 1006) MCHC (test code = 35.9 G/DL 31.0-36.0 1007) RDW (test code = 12.6 % 11.5-15.0 1038) NEUTROPHILS (test 59.3 % code = 1008) LYMPHOCYTES (test 29.8 % code = 1010) MONOCYTES (test code 5.7 % = 1011) EOSINOPHILS (test 4.0 % code = 1012) BASOPHILS (test code 0.7 % = 1013) IMMATURE GRANULOCYTES 0.5 % (test code = 1036) NUCLEATED RBCS (test 0.0 /100 WBC'S See_Comment [Aut omated code = 1065) message] The sy stem which generated this result transmitted reference range : 0.0. The refere nce range was not u sed to interpret th is result as normal/abnormal . PLATELET COUNT (test 277 K/UL 130-400 code = 1015) ABSOLUTE NEUTROPHILS 5.17 K/UL 1.50-7.50 (test code = 1066) ABSOLUTE LYMPHOCYTES 2.60 K/UL 1.00-4.00 (test code = 1067) ABSOLUTE MONOCYTES 0.50 K/UL 0.20-1.00 (test code = 1068) ABSOLUTE EOSINOPHILS 0.35 K/UL 0.00-0.50 (test code = 1040) ABSOLUTE BASOPHILS 0.06 K/UL 0.00-0.20 (test code = 1069) ABS IMMATURE 0.04 K/UL 0.00-0.10 GRANULOCYTES (test code = 1020) ABS NUCLEATED RBCS 0.00 K/UL 0.00-0.11 (test code = 99940) LIPID [id number] 00:00:00 Test Item Value Reference Range Interpretation Comments CHOLESTEROL (test code = 2210) 190 MG/DL TRIGLYCERIDES (test code = 2232) 217 MG/DL HDL CHOLESTEROL (test code = 2220) 46 MG/DL CALC LDL CHOL (test code = 2237) 110 MG/DL RISK RATIO LDL/HDL (test code = 2.39 RATIO 2238) [id number] 00:00:00 Test Item Value Reference Range Interpretation Comments TSH, THIRD GENERATION (test code 1.820 UIU/ML = 2821) [id number] 00:00:00 Test Item Value Reference Range Interpretation Comments TSH, THIRD GENERATION (test code 1.820 UIU/ML = 2821) [id number] 00:00:00 Test Item Value Reference Range Interpretation Comments TSH, THIRD GENERATION (test code 1.820 UIU/ML = 2821) CBC W/AUTO [id number] 00:00:00 Test Item Value Reference Range Interpretation Comments WBC (test code = 1001) 8.7 K/UL RBC (test code = 1002) 4.42 M/UL HEMOGLOBIN (test code = 1003) 14.5 G/DL HEMATOCRIT (test code = 1004) 40.4 % MCV (test code = 1005) 91.4 fL MCH (test code = 1006) 32.8 PG MCHC (test code = 1007) 35.9 G/DL RDW (test code = 1038) 12.6 % NEUTROPHILS (test code = 1008) 59.3 % LYMPHOCYTES (test code = 1010) 29.8 % MONOCYTES (test code = 1011) 5.7 % EOSINOPHILS (test code = 1012) 4.0 % BASOPHILS (test code = 1013) 0.7 % IMMATURE GRANULOCYTES (test 0.5 % code = 1036) NUCLEATED RBCS (test code = 0.0 /100WBC'S 1065) PLATELET COUNT (test code = 277 K/UL 1015) ABSOLUTE NEUTROPHILS (test code 5.17 K/UL = 1066) ABSOLUTE LYMPHOCYTES (test code 2.60 K/UL = 1067) ABSOLUTE MONOCYTES (test code = 0.50 K/UL 1068) ABSOLUTE EOSINOPHILS (test code 0.35 K/UL = 1040) ABSOLUTE BASOPHILS (test code = 0.06 K/UL 1069) ABS IMMATURE GRANULOCYTES (test 0.04 K/UL code = 1020) ABS NUCLEATED RBCS (test code = 0.00 K/UL 51063) CBC W/AUTO [id number] 00:00:00 Test Item Value Reference Range Interpretation Comments WBC (test code = 1001) 8.7 K/UL RBC (test code = 1002) 4.42 M/UL HEMOGLOBIN (test code = 1003) 14.5 G/DL HEMATOCRIT (test code = 1004) 40.4 % MCV (test code = 1005) 91.4 fL MCH (test code = 1006) 32.8 PG MCHC (test code = 1007) 35.9 G/DL RDW (test code = 1038) 12.6 % NEUTROPHILS (test code = 1008) 59.3 % LYMPHOCYTES (test code = 1010) 29.8 % MONOCYTES (test code = 1011) 5.7 % EOSINOPHILS (test code = 1012) 4.0 % BASOPHILS (test code = 1013) 0.7 % IMMATURE GRANULOCYTES (test 0.5 % code = 1036) NUCLEATED RBCS (test code = 0.0 /100WBC'S 1065) PLATELET COUNT (test code = 277 K/UL 1015) ABSOLUTE NEUTROPHILS (test code 5.17 K/UL = 1066) ABSOLUTE LYMPHOCYTES (test code 2.60 K/UL = 1067) ABSOLUTE MONOCYTES (test code = 0.50 K/UL 1068) ABSOLUTE EOSINOPHILS (test code 0.35 K/UL = 1040) ABSOLUTE BASOPHILS (test code = 0.06 K/UL 1069) ABS IMMATURE GRANULOCYTES (test 0.04 K/UL code = 1020) ABS NUCLEATED RBCS (test code = 0.00 K/UL 22139) CBC W/AUTO [id number] 00:00:00 Test Item Value Reference Range Interpretation Comments WBC (test code = 1001) 8.7 K/UL RBC (test code = 1002) 4.42 M/UL HEMOGLOBIN (test code = 1003) 14.5 G/DL HEMATOCRIT (test code = 1004) 40.4 % MCV (test code = 1005) 91.4 fL MCH (test code = 1006) 32.8 PG MCHC (test code = 1007) 35.9 G/DL RDW (test code = 1038) 12.6 % NEUTROPHILS (test code = 1008) 59.3 % LYMPHOCYTES (test code = 1010) 29.8 % MONOCYTES (test code = 1011) 5.7 % EOSINOPHILS (test code = 1012) 4.0 % BASOPHILS (test code = 1013) 0.7 % IMMATURE GRANULOCYTES (test 0.5 % code = 1036) NUCLEATED RBCS (test code = 0.0 /100WBC'S 1065) PLATELET COUNT (test code = 277 K/UL 1015) ABSOLUTE NEUTROPHILS (test code 5.17 K/UL = 1066) ABSOLUTE LYMPHOCYTES (test code 2.60 K/UL = 1067) ABSOLUTE MONOCYTES (test code = 0.50 K/UL 1068) ABSOLUTE EOSINOPHILS (test code 0.35 K/UL = 1040) ABSOLUTE BASOPHILS (test code = 0.06 K/UL 1069) ABS IMMATURE GRANULOCYTES (test 0.04 K/UL code = 1020) ABS NUCLEATED RBCS (test code = 0.00 K/UL 58628) COMPREHENSIVE METABOLIC [id number] 00:00:00 Test Item Value Reference Range Interpretation Comments GLUCOSE (test code = 2217) 95 MG/DL BUN (test code = 2208) 9 MG/DL CREATININE (test code = 2214) 0.61 MG/DL eGFR (2020 CKD-EPI) (test 109 ML/MIN/1.73 code = 39531) CALC BUN/CREAT (test code = 15 RATIO 2235) SODIUM (test code = 2231) 139 MEQ/L POTASSIUM (test code = 2228) 4.4 MEQ/L CHLORIDE (test code = 2215) 103 MEQ/L CARBON DIOXIDE (test code = 23 MEQ/L 220) CALCIUM (test code = 2209) 9.7 MG/DL PROTEIN, TOTAL (test code = 6.8 G/DL 2228) ALBUMIN (test code = 2201) 4.5 G/DL CALC GLOBULIN (test code = 2.3 G/DL 2240) CALC A/G RATIO (test code = 2.0 RATIO 2234) BILIRUBIN, TOTAL (test code = 0.3 MG/DL 2206) ALKALINE PHOSPHATASE (test 97 U/L code = 2204) AST (test code = 2218) 13 U/L ALT (test code = 2219) 15 U/L COMPREHENSIVE METABOLIC [id number] 00:00:00 Test Item Value Reference Range Interpretation Comments GLUCOSE (test code = 2217) 95 MG/DL BUN (test code = 2208) 9 MG/DL CREATININE (test code = 2214) 0.61 MG/DL eGFR (2020 CKD-EPI) (test 109 ML/MIN/1.73 code = 56107) CALC BUN/CREAT (test code = 15 RATIO 2235) SODIUM (test code = 2231) 139 MEQ/L POTASSIUM (test code = 2228) 4.4 MEQ/L CHLORIDE (test code = 2215) 103 MEQ/L CARBON DIOXIDE (test code = 23 MEQ/L 220) CALCIUM (test code = 2209) 9.7 MG/DL PROTEIN, TOTAL (test code = 6.8 G/DL 2228) ALBUMIN (test code = 2201) 4.5 G/DL CALC GLOBULIN (test code = 2.3 G/DL 2240) CALC A/G RATIO (test code = 2.0 RATIO 2234) BILIRUBIN, TOTAL (test code = 0.3 MG/DL 2206) ALKALINE PHOSPHATASE (test 97 U/L code = 2204) AST (test code = 2218) 13 U/L ALT (test code = 2219) 15 U/L LIPID [id number] 00:00:00 Test Item Value Reference Range Interpretation Comments CHOLESTEROL (test code = 2210) 190 MG/DL TRIGLYCERIDES (test code = 2232) 217 MG/DL HDL CHOLESTEROL (test code = 2220) 46 MG/DL CALC LDL CHOL (test code = 2237) 110 MG/DL RISK RATIO LDL/HDL (test code = 2.39 RATIO 2238) LIPID [id number] 00:00:00 Test Item Value Reference Range Interpretation Comments CHOLESTEROL (test code = 2210) 190 MG/DL TRIGLYCERIDES (test code = 2232) 217 MG/DL HDL CHOLESTEROL (test code = 2220) 46 MG/DL CALC LDL CHOL (test code = 2237) 110 MG/DL RISK RATIO LDL/HDL (test code = 2.39 RATIO 2238) [id number] 00:00:00 Test Item Value Reference Range Interpretation Comments TSH, THIRD GENERATION (test code 1.820 UIU/ML = 2821) [id number] 00:00:00 Test Item Value Reference Range Interpretation Comments TSH, THIRD GENERATION (test code 1.820 UIU/ML = 2821) [id number] 00:00:00 Test Item Value Reference Range Interpretation Comments TSH, THIRD GENERATION (test code 1.820 UIU/ML = 2821) CBC W/AUTO [id number] 00:00:00 Test Item Value Reference Range Interpretation Comments WBC (test code = 1001) 8.7 K/UL RBC (test code = 1002) 4.42 M/UL HEMOGLOBIN (test code = 1003) 14.5 G/DL HEMATOCRIT (test code = 1004) 40.4 % MCV (test code = 1005) 91.4 fL MCH (test code = 1006) 32.8 PG MCHC (test code = 1007) 35.9 G/DL RDW (test code = 1038) 12.6 % NEUTROPHILS (test code = 1008) 59.3 % LYMPHOCYTES (test code = 1010) 29.8 % MONOCYTES (test code = 1011) 5.7 % EOSINOPHILS (test code = 1012) 4.0 % BASOPHILS (test code = 1013) 0.7 % IMMATURE GRANULOCYTES (test 0.5 % code = 1036) NUCLEATED RBCS (test code = 0.0 /100WBC'S 1065) PLATELET COUNT (test code = 277 K/UL 1015) ABSOLUTE NEUTROPHILS (test code 5.17 K/UL = 1066) ABSOLUTE LYMPHOCYTES (test code 2.60 K/UL = 1067) ABSOLUTE MONOCYTES (test code = 0.50 K/UL 1068) ABSOLUTE EOSINOPHILS (test code 0.35 K/UL = 1040) ABSOLUTE BASOPHILS (test code = 0.06 K/UL 1069) ABS IMMATURE GRANULOCYTES (test 0.04 K/UL code = 1020) ABS NUCLEATED RBCS (test code = 0.00 K/UL 76682) CBC W/AUTO [id number] 00:00:00 Test Item Value Reference Range Interpretation Comments WBC (test code = 1001) 8.7 K/UL RBC (test code = 1002) 4.42 M/UL HEMOGLOBIN (test code = 1003) 14.5 G/DL HEMATOCRIT (test code = 1004) 40.4 % MCV (test code = 1005) 91.4 fL MCH (test code = 1006) 32.8 PG MCHC (test code = 1007) 35.9 G/DL RDW (test code = 1038) 12.6 % NEUTROPHILS (test code = 1008) 59.3 % LYMPHOCYTES (test code = 1010) 29.8 % MONOCYTES (test code = 1011) 5.7 % EOSINOPHILS (test code = 1012) 4.0 % BASOPHILS (test code = 1013) 0.7 % IMMATURE GRANULOCYTES (test 0.5 % code = 1036) NUCLEATED RBCS (test code = 0.0 /100WBC'S 1065) PLATELET COUNT (test code = 277 K/UL 1015) ABSOLUTE NEUTROPHILS (test code 5.17 K/UL = 1066) ABSOLUTE LYMPHOCYTES (test code 2.60 K/UL = 1067) ABSOLUTE MONOCYTES (test code = 0.50 K/UL 1068) ABSOLUTE EOSINOPHILS (test code 0.35 K/UL = 1040) ABSOLUTE BASOPHILS (test code = 0.06 K/UL 1069) ABS IMMATURE GRANULOCYTES (test 0.04 K/UL code = 1020) ABS NUCLEATED RBCS (test code = 0.00 K/UL 47633) CBC W/AUTO [id number] 00:00:00 Test Item Value Reference Range Interpretation Comments WBC (test code = 1001) 8.7 K/UL RBC (test code = 1002) 4.42 M/UL HEMOGLOBIN (test code = 1003) 14.5 G/DL HEMATOCRIT (test code = 1004) 40.4 % MCV (test code = 1005) 91.4 fL MCH (test code = 1006) 32.8 PG MCHC (test code = 1007) 35.9 G/DL RDW (test code = 1038) 12.6 % NEUTROPHILS (test code = 1008) 59.3 % LYMPHOCYTES (test code = 1010) 29.8 % MONOCYTES (test code = 1011) 5.7 % EOSINOPHILS (test code = 1012) 4.0 % BASOPHILS (test code = 1013) 0.7 % IMMATURE GRANULOCYTES (test 0.5 % code = 1036) NUCLEATED RBCS (test code = 0.0 /100WBC'S 1065) PLATELET COUNT (test code = 277 K/UL 1015) ABSOLUTE NEUTROPHILS (test code 5.17 K/UL = 1066) ABSOLUTE LYMPHOCYTES (test code 2.60 K/UL = 1067) ABSOLUTE MONOCYTES (test code = 0.50 K/UL 1068) ABSOLUTE EOSINOPHILS (test code 0.35 K/UL = 1040) ABSOLUTE BASOPHILS (test code = 0.06 K/UL 1069) ABS IMMATURE GRANULOCYTES (test 0.04 K/UL code = 1020) ABS NUCLEATED RBCS (test code = 0.00 K/UL 30400) COMPREHENSIVE METABOLIC [id number] 00:00:00 Test Item Value Reference Range Interpretation Comments GLUCOSE (test code = 2217) 95 MG/DL BUN (test code = 2208) 9 MG/DL CREATININE (test code = 2214) 0.61 MG/DL eGFR (2020 CKD-EPI) (test 109 ML/MIN/1.73 code = 48040) CALC BUN/CREAT (test code = 15 RATIO 2235) SODIUM (test code = 2231) 139 MEQ/L POTASSIUM (test code = 2228) 4.4 MEQ/L CHLORIDE (test code = 2215) 103 MEQ/L CARBON DIOXIDE (test code = 23 MEQ/L 2206) CALCIUM (test code = 2209) 9.7 MG/DL PROTEIN, TOTAL (test code = 6.8 G/DL 222) ALBUMIN (test code = 2201) 4.5 G/DL CALC GLOBULIN (test code = 2.3 G/DL 2240) CALC A/G RATIO (test code = 2.0 RATIO 2234) BILIRUBIN, TOTAL (test code = 0.3 MG/DL 2206) ALKALINE PHOSPHATASE (test 97 U/L code = 2204) AST (test code = 2218) 13 U/L ALT (test code = 2219) 15 U/L COMPREHENSIVE METABOLIC [id number] 00:00:00 Test Item Value Reference Range Interpretation Comments GLUCOSE (test code = 2217) 95 MG/DL BUN (test code = 2208) 9 MG/DL CREATININE (test code = 2214) 0.61 MG/DL eGFR (2020 CKD-EPI) (test 109 ML/MIN/1.73 code = 36881) CALC BUN/CREAT (test code = 15 RATIO 2235) SODIUM (test code = 2231) 139 MEQ/L POTASSIUM (test code = 2228) 4.4 MEQ/L CHLORIDE (test code = 2215) 103 MEQ/L CARBON DIOXIDE (test code = 23 MEQ/L 2206) CALCIUM (test code = 2209) 9.7 MG/DL PROTEIN, TOTAL (test code = 6.8 G/DL 2228) ALBUMIN (test code = 2201) 4.5 G/DL CALC GLOBULIN (test code = 2.3 G/DL 2240) CALC A/G RATIO (test code = 2.0 RATIO 2234) BILIRUBIN, TOTAL (test code = 0.3 MG/DL 2206) ALKALINE PHOSPHATASE (test 97 U/L code = 2204) AST (test code = 2218) 13 U/L ALT (test code = 2219) 15 U/L LIPID [id number] 00:00:00 Test Item Value Reference Range Interpretation Comments CHOLESTEROL (test code = 2210) 190 MG/DL TRIGLYCERIDES (test code = 2232) 217 MG/DL HDL CHOLESTEROL (test code = 2220) 46 MG/DL CALC LDL CHOL (test code = 2237) 110 MG/DL RISK RATIO LDL/HDL (test code = 2.39 RATIO 2238) LIPID [id number] 00:00:00 Test Item Value Reference Range Interpretation Comments CHOLESTEROL (test code = 2210) 190 MG/DL TRIGLYCERIDES (test code = 2232) 217 MG/DL HDL CHOLESTEROL (test code = 2220) 46 MG/DL CALC LDL CHOL (test code = 2237) 110 MG/DL RISK RATIO LDL/HDL (test code = 2.39 RATIO 2238) [id number] 00:00:00 Test Item Value Reference Range Interpretation Comments TSH, THIRD GENERATION (test code 1.820 UIU/ML = 2821) [id number] 00:00:00 Test Item Value Reference Range Interpretation Comments TSH, THIRD GENERATION (test code 1.820 UIU/ML = 2821) [id number] 00:00:00 Test Item Value Reference Range Interpretation Comments TSH, THIRD GENERATION (test code 1.820 UIU/ML = 2821) CBC W/AUTO [id number] 00:00:00 Test Item Value Reference Range Interpretation Comments WBC (test code = 1001) 8.7 K/UL RBC (test code = 1002) 4.42 M/UL HEMOGLOBIN (test code = 1003) 14.5 G/DL HEMATOCRIT (test code = 1004) 40.4 % MCV (test code = 1005) 91.4 fL MCH (test code = 1006) 32.8 PG MCHC (test code = 1007) 35.9 G/DL RDW (test code = 1038) 12.6 % NEUTROPHILS (test code = 1008) 59.3 % LYMPHOCYTES (test code = 1010) 29.8 % MONOCYTES (test code = 1011) 5.7 % EOSINOPHILS (test code = 1012) 4.0 % BASOPHILS (test code = 1013) 0.7 % IMMATURE GRANULOCYTES (test 0.5 % code = 1036) NUCLEATED RBCS (test code = 0.0 /100WBC'S 1065) PLATELET COUNT (test code = 277 K/UL 1015) ABSOLUTE NEUTROPHILS (test code 5.17 K/UL = 1066) ABSOLUTE LYMPHOCYTES (test code 2.60 K/UL = 1067) ABSOLUTE MONOCYTES (test code = 0.50 K/UL 1068) ABSOLUTE EOSINOPHILS (test code 0.35 K/UL = 1040) ABSOLUTE BASOPHILS (test code = 0.06 K/UL 1069) ABS IMMATURE GRANULOCYTES (test 0.04 K/UL code = 1020) ABS NUCLEATED RBCS (test code = 0.00 K/UL 71636) CBC W/AUTO [id number] 00:00:00 Test Item Value Reference Range Interpretation Comments WBC (test code = 1001) 8.7 K/UL RBC (test code = 1002) 4.42 M/UL HEMOGLOBIN (test code = 1003) 14.5 G/DL HEMATOCRIT (test code = 1004) 40.4 % MCV (test code = 1005) 91.4 fL MCH (test code = 1006) 32.8 PG MCHC (test code = 1007) 35.9 G/DL RDW (test code = 1038) 12.6 % NEUTROPHILS (test code = 1008) 59.3 % LYMPHOCYTES (test code = 1010) 29.8 % MONOCYTES (test code = 1011) 5.7 % EOSINOPHILS (test code = 1012) 4.0 % BASOPHILS (test code = 1013) 0.7 % IMMATURE GRANULOCYTES (test 0.5 % code = 1036) NUCLEATED RBCS (test code = 0.0 /100WBC'S 1065) PLATELET COUNT (test code = 277 K/UL 1015) ABSOLUTE NEUTROPHILS (test code 5.17 K/UL = 1066) ABSOLUTE LYMPHOCYTES (test code 2.60 K/UL = 1067) ABSOLUTE MONOCYTES (test code = 0.50 K/UL 1068) ABSOLUTE EOSINOPHILS (test code 0.35 K/UL = 1040) ABSOLUTE BASOPHILS (test code = 0.06 K/UL 1069) ABS IMMATURE GRANULOCYTES (test 0.04 K/UL code = 1020) ABS NUCLEATED RBCS (test code = 0.00 K/UL 22857) CBC W/AUTO [id number] 00:00:00 Test Item Value Reference Range Interpretation Comments WBC (test code = 1001) 8.7 K/UL RBC (test code = 1002) 4.42 M/UL HEMOGLOBIN (test code = 1003) 14.5 G/DL HEMATOCRIT (test code = 1004) 40.4 % MCV (test code = 1005) 91.4 fL MCH (test code = 1006) 32.8 PG MCHC (test code = 1007) 35.9 G/DL RDW (test code = 1038) 12.6 % NEUTROPHILS (test code = 1008) 59.3 % LYMPHOCYTES (test code = 1010) 29.8 % MONOCYTES (test code = 1011) 5.7 % EOSINOPHILS (test code = 1012) 4.0 % BASOPHILS (test code = 1013) 0.7 % IMMATURE GRANULOCYTES (test 0.5 % code = 1036) NUCLEATED RBCS (test code = 0.0 /100WBC'S 1065) PLATELET COUNT (test code = 277 K/UL 1015) ABSOLUTE NEUTROPHILS (test code 5.17 K/UL = 1066) ABSOLUTE LYMPHOCYTES (test code 2.60 K/UL = 1067) ABSOLUTE MONOCYTES (test code = 0.50 K/UL 1068) ABSOLUTE EOSINOPHILS (test code 0.35 K/UL = 1040) ABSOLUTE BASOPHILS (test code = 0.06 K/UL 1069) ABS IMMATURE GRANULOCYTES (test 0.04 K/UL code = 1020) ABS NUCLEATED RBCS (test code = 0.00 K/UL 73439) COMPREHENSIVE METABOLIC [id number] 00:00:00 Test Item Value Reference Range Interpretation Comments GLUCOSE (test code = 2217) 95 MG/DL BUN (test code = 2208) 9 MG/DL CREATININE (test code = 2214) 0.61 MG/DL eGFR (2020 CKD-EPI) (test 109 ML/MIN/1.73 code = 64156) CALC BUN/CREAT (test code = 15 RATIO 2235) SODIUM (test code = 2231) 139 MEQ/L POTASSIUM (test code = 2228) 4.4 MEQ/L CHLORIDE (test code = 2215) 103 MEQ/L CARBON DIOXIDE (test code = 23 MEQ/L 2205) CALCIUM (test code = 2209) 9.7 MG/DL PROTEIN, TOTAL (test code = 6.8 G/DL 2228) ALBUMIN (test code = 2201) 4.5 G/DL CALC GLOBULIN (test code = 2.3 G/DL 0) CALC A/G RATIO (test code = 2.0 RATIO 2234) BILIRUBIN, TOTAL (test code = 0.3 MG/DL 2207) ALKALINE PHOSPHATASE (test 97 U/L code = 2204) AST (test code = 2218) 13 U/L ALT (test code = 2219) 15 U/L COMPREHENSIVE METABOLIC [id number] 00:00:00 Test Item Value Reference Range Interpretation Comments GLUCOSE (test code = 2217) 95 MG/DL BUN (test code = 2208) 9 MG/DL CREATININE (test code = 2214) 0.61 MG/DL eGFR (2020 CKD-EPI) (test 109 ML/MIN/1.73 code = 78703) CALC BUN/CREAT (test code = 15 RATIO 2235) SODIUM (test code = 2231) 139 MEQ/L POTASSIUM (test code = 2228) 4.4 MEQ/L CHLORIDE (test code = 2215) 103 MEQ/L CARBON DIOXIDE (test code = 23 MEQ/L 2205) CALCIUM (test code = 2209) 9.7 MG/DL PROTEIN, TOTAL (test code = 6.8 G/DL 2228) ALBUMIN (test code = 2201) 4.5 G/DL CALC GLOBULIN (test code = 2.3 G/DL 2239) CALC A/G RATIO (test code = 2.0 RATIO 2234) BILIRUBIN, TOTAL (test code = 0.3 MG/DL 2206) ALKALINE PHOSPHATASE (test 97 U/L code = 2204) AST (test code = 2218) 13 U/L ALT (test code = 2219) 15 U/L LIPID [id number] 00:00:00 Test Item Value Reference Range Interpretation Comments CHOLESTEROL (test code = 2210) 190 MG/DL TRIGLYCERIDES (test code = 2232) 217 MG/DL HDL CHOLESTEROL (test code = 2220) 46 MG/DL CALC LDL CHOL (test code = 2237) 110 MG/DL RISK RATIO LDL/HDL (test code = 2.39 RATIO 2238) PAP TEST, THINPREP, [id number] 00:00:00 Test Item Value Reference Range Interpretation Comments SOURCE: (test code = A) Cervical/Endocervical 8001) SLIDES: (test code = 1 8011) LMP: (test code = 03/09/2016 8021) SPECIMEN ADEQUACY: (NOTE) (test code = 16542) INTERPRETATION: (test NO EPITHELIAL code = 07478) ABNORMALITY SEE BELOW OTHER COMMENTS: (test SEE BELOW code = 8081) PARTS CATALOGUER: Vandana Phipps, (test code = 8101) CT(ASCP) QC TECHNOLOGIST: Martir Lynn (test code = 8111) WoodySCT(ASCP)IAC LOCATION: (test code (NOTE) = 11570) CPT: (test code = (NOTE) 8140) PAP TEST, THINPREP, [id number] 00:00:00 Test Item Value Reference Range Interpretation Comments SOURCE: (test code = A) Cervical/Endocervical 8001) SLIDES: (test code = 1 8011) LMP: (test code = 03/09/2016 8021) SPECIMEN ADEQUACY: (NOTE) (test code = 58758) INTERPRETATION: (test NO EPITHELIAL code = 73881) ABNORMALITY SEE BELOW OTHER COMMENTS: (test SEE BELOW code = 8081) PARTS CATALOGUER: Vandana Phipps, (test code = 8101) CT(ASCP) QC TECHNOLOGIST: Martir Lynn (test code = 8111) WoodySCT(ASCP)IAC LOCATION: (test code (NOTE) = 95277) CPT: (test code = (NOTE) 8140) PAP TEST, THINPREP, [id number] 00:00:00 Test Item Value Reference Range Interpretation Comments SOURCE: (test code = A) Cervical/Endocervical 8001) SLIDES: (test code = 1 8011) LMP: (test code = 03/09/2016 8021) SPECIMEN ADEQUACY: (NOTE) (test code = 24134) INTERPRETATION: (test NO EPITHELIAL code = 44662) ABNORMALITY SEE BELOW OTHER COMMENTS: (test SEE BELOW code = 8081) PARTS CATALOGUER: Vandana Phipps, (test code = 8101) CT(ASCP) QC TECHNOLOGIST: Martir Lynn (test code = 8111) WoodySCT(ASCP)IAC LOCATION: (test code (NOTE) = 51990) CPT: (test code = (NOTE) 8140) PAP TEST, THINPREP, [id number] 00:00:00 Test Item Value Reference Range Interpretation Comments SOURCE: (test code = A) Cervical/Endocervical 8001) SLIDES: (test code = 1 8011) LMP: (test code = 03/09/2016 8021) SPECIMEN ADEQUACY: (NOTE) (test code = 94931) INTERPRETATION: (test NO EPITHELIAL code = 53896) ABNORMALITY SEE BELOW OTHER COMMENTS: (test SEE BELOW code = 8081) PARTS CATALOGUER: Vandana Phipps, (test code = 8101) CT(ASCP) QC TECHNOLOGIST: Martir Lynn (test code = 8111) Rice,SCT(ASCP)IAC LOCATION: (test code (NOTE) = 33022) CPT: (test code = (NOTE) 8140) PAP TEST, THINPREP, [id number] 00:00:00 Test Item Value Reference Range Interpretation Comments SOURCE: (test code = A) Cervical/Endocervical 8001) SLIDES: (test code = 1 8011) LMP: (test code = 03/09/2016 8021) SPECIMEN ADEQUACY: (NOTE) (test code = 93596) INTERPRETATION: (test NO EPITHELIAL code = 60087) ABNORMALITY SEE BELOW OTHER COMMENTS: (test SEE BELOW code = 8081) PARTS CATALOGUER: Vandana Phipps, (test code = 8101) CT(ASCP) QC TECHNOLOGIST: Martir Lynn (test code = 8111) Woody,SCT(ASCP)IAC LOCATION: (test code (NOTE) = 06401) CPT: (test code = (NOTE) 8140) PAP TEST, THINPREP, [id number] 00:00:00 Test Item Value Reference Range Interpretation Comments SOURCE: (test code = A) Cervical/Endocervical 8001) SLIDES: (test code = 1 8011) LMP: (test code = 03/09/2016 8021) SPECIMEN ADEQUACY: (NOTE) (test code = 41305) INTERPRETATION: (test NO EPITHELIAL code = 57260) ABNORMALITY SEE BELOW OTHER COMMENTS: (test SEE BELOW code = 8081) PARTS CATALOGUER: Vandana Phipps, (test code = 8101) CT(ASCP) QC TECHNOLOGIST: Martir Lynn (test code = 8111) Woody,SCT(ASCP)IAC LOCATION: (test code (NOTE) = 67507) CPT: (test code = (NOTE) 8140) HPV HIGH RISK WITH GENOTYPE, [id number] 00:00:00 Test Item Value Reference Range Interpretation Comments HPV HIGH RISK INTERP (test code = POSITIVE 23880) HPV 16 (test code = 66745) NEGATIVE HPV 18 (test code = 97512) NEGATIVE HPV, HR, OTHER GENOTYPES (test code POSITIVE = 95821) HPV HIGH RISK WITH GENOTYPE, [id number] 00:00:00 Test Item Value Reference Range Interpretation Comments HPV HIGH RISK INTERP (test code = POSITIVE 40279) HPV 16 (test code = 26302) NEGATIVE HPV 18 (test code = 45596) NEGATIVE HPV, HR, OTHER GENOTYPES (test code POSITIVE = 70033) HPV HIGH RISK WITH GENOTYPE, [id number] 00:00:00 Test Item Value Reference Range Interpretation Comments HPV HIGH RISK INTERP (test code = POSITIVE 87122) HPV 16 (test code = 42955) NEGATIVE HPV 18 (test code = 09986) NEGATIVE HPV, HR, OTHER GENOTYPES (test code POSITIVE = 68709) HPV HIGH RISK WITH GENOTYPE, [id number] 00:00:00 Test Item Value Reference Range Interpretation Comments HPV HIGH RISK INTERP (test code = POSITIVE 18005) HPV 16 (test code = 23640) NEGATIVE HPV 18 (test code = 81682) NEGATIVE HPV, HR, OTHER GENOTYPES (test code POSITIVE = 71108) HPV HIGH RISK WITH GENOTYPE, [id number] 00:00:00 Test Item Value Reference Range Interpretation Comments HPV HIGH RISK INTERP (test code = POSITIVE 28521) HPV 16 (test code = 54750) NEGATIVE HPV 18 (test code = 39964) NEGATIVE HPV, HR, OTHER GENOTYPES (test code POSITIVE = 09193) HPV HIGH RISK WITH GENOTYPE, [id number] 00:00:00 Test Item Value Reference Range Interpretation Comments HPV HIGH RISK INTERP (test code = POSITIVE 90239) HPV 16 (test code = 15268) NEGATIVE HPV 18 (test code = 47137) NEGATIVE HPV, HR, OTHER GENOTYPES (test code POSITIVE = 28633)
[2022-11-09] MEDS ORDERED: ASPIRIN 81 MG CHEWABLE TABLET ONE (18:37)
[2022-11-09] MEDS ORDERED: FAMOTIDINE 20 MG/2 ML VIAL IV ONE (18:37)
[2022-11-09] MEDS ORDERED: ALBUTEROL 2.5 MG/3 ML NEB SOL ONE (18:37)
[2022-11-09] MEDS ORDERED: METHYLPREDNISOLONE 125 MG INJ ONE (18:37)
[2022-11-09 19:09] LABS: Absolute Lymphocytes (CBC) 3.2 K/uL (0.7-4.9); Hematocrit 40.6 % (36.0-45.0); Lymphocytes % 30.7 % (15.3-44.8); MCV 91.6 fL (80-100); MPV 7.1 fL (7.6-11.3); RBC Red Blood Cell Count 4.44 M/uL (3.86-4.86)
[2022-11-09 19:36] LABS: Protime INR 0.95
[2022-11-09] MEDS ORDERED: NA CHLORIDE 0.9% 500 ML ONE (19:47)
--- NOTE | 2022-11-09 19:52 | RAD REPORT ---
EXAM DESCRIPTION: RAD - Chest Single View - 11/09/2022 7:38 pm CLINICAL HISTORY: CHEST PAIN Chest pain. COMPARISON: Chest Single View dated 02/08/2021; Chest Single View dated 06/25/2020 FINDINGS: Portable technique limits examination quality. The lungs are grossly clear. The heart is normal in size. No displaced fractures. IMPRESSION: No acute intrathoracic process suspected.
[2022-11-09 19:55] LABS: SARS-COV-2 RT PCR NEGATIVE (NEGATIVE)
[2022-11-09 20:22] LABS: Albumin 3.4 g/dL (3.4-5.0); Bilirubin Direct 0.1 mg/dL (0-0.2); Bilirubin Total 0.4 mg/dL (0.2-1.0); Protein, Total 6.7 g/dL (6.4-8.2); Troponin High Sensitivity 3.8 pg/mL (<58.9)
[2022-11-09 20:23] LABS: Magnesium 1.7 mg/dL (1.6-2.4); Potassium 3.7 mmol/L (3.5-5.1)
--- NOTE | 2022-11-09 23:13 | ER ---
Nurse's Notes [facility] Name: Carolina Rivera Age: 52 yrs Sex: Female : 1970 Arrival Date: 11/09/2022 Time: 18:23 Bed 5 Private MD: Diagnosis: Cough;Chest pain, unspecified Presentation: 11/09 18:30 Chief complaint: Patient states: Mid CP, radiates to back since this morning. jl7 Coronavirus screen: Vaccine status: Patient reports being unvaccinated. At this time, the client does not indicate any symptoms associated with coronavirus-19. Ebola Screen: No symptoms or risks identified at this time. Initial Sepsis Screen: Does the patient meet any 2 criteria? No. Patient's initial sepsis screen is negative. Does the patient have a suspected source of infection? No. Patient's initial sepsis screen is negative. Risk Assessment: Do you want to hurt yourself or someone else? Patient reports no desire to harm self or others. Onset of symptoms was November 09, 2022. Care prior to arrival: None. 18:30 Method Of Arrival: Ambulatory [facility] 18:30 Acuity: DANETTE 2 jl7 Triage Assessment: 18:33 General: Appears in no apparent distress. uncomfortable, Behavior is calm, cooperative, jl7 appropriate for age. Pain: Complains of pain in mid-sternal area Pain currently is 7 out of 10 on a pain scale. 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 - Social history:: Smoking status: Patient reports the use of cigarette tobacco products. Screenin:58 [facility] ED Fall Risk Assessment (Adult) History of falling in the last 3 months, kc6 including since admission No falls in past 3 months (0 pts) Confusion or Disorientation No (0 pts) Intoxicated or Sedated No (0 pts) Impaired Gait No (0 pts) Mobility Assist Device Used No (0 pt) Altered Elimination No (0 pt) Score/Fall Risk Level 0 - 2 = Low Risk. Abuse screen: Denies threats or abuse. Denies injuries from another. Nutritional screening: No deficits noted. Tuberculosis screening: No symptoms or risk factors identified. 22:40 Humpty Dumpty Scale Fall Assessment Tool (age< 18yrs) Age 13 years and above (1 pt) kd3 Gender Female (1 pt) Diagnosis Other diagnosis (1 pt) Cognitive Impairments Oriented to own ability (1 pt) Environmental Factors Patient placed in bed (2 pts) Response to Surgery/Sedation/Anesthesia More than 48 hours/ None (1 pt) Medication Usage Other medications/ None (1 pt) Fall Risk Score/ Level Low Fall Risk: </= 11 points. Fall Risk No fall in past 12 months (0 pts). No secondary diagnosis (0 pts). IV access (20 points). Ambulatory Aid- None/Bed Rest/Nurse Assist (0 pts). Gait- Normal/Bed Rest/Wheelchair (0 pts) Mental Status- Oriented to own ability (0 pts). Total Bruno Fall Scale indicates No Risk (0-24 pts). Assessment: 18:58 General: Appears in no apparent distress. uncomfortable, Behavior is calm, cooperative, kc6 appropriate for age. Pain: Complains of pain in mid-sternal area Pain radiates to left scapular area Pain currently is 7 out of 10 on a pain scale. Quality of pain is described as dull, heavy, pressure, radiating, Pain began "a while ago, but has gotten worse today. I had to go home from work." Is continuous, Alleviated by nothing. Aggravated by increased activity, Noted to be grimacing, guarding, moaning, resistant to movement, Also complains of shortness of breath. Neuro: Dupree Agitation-Sedation Scale (RASS): 0 - Alert and Calm Level of Consciousness is awake, alert, obeys commands, Oriented to person, place, time, situation, Appropriate for age. Cardiovascular: Reports chest pain, shortness of breath, Heart tones S1 S2 present Capillary refill < 3 seconds Rhythm is sinus rhythm. Respiratory: Airway is patent Trachea midline Respiratory effort is even, unlabored, Respiratory pattern is regular, symmetrical, Breath sounds are clear bilaterally. GI: No signs and/or symptoms were reported involving the gastrointestinal system. : No signs and/or symptoms were reported regarding the genitourinary system. EENT: No signs and/or symptoms were reported regarding the EENT system. Derm: No signs and/or symptoms reported regarding the dermatologic system. Skin is intact, Skin is pink, warm \\T\\ dry. Musculoskeletal: No signs and/or symptoms reported regarding the musculoskeletal system. Circulation, motion, and sensation intact. Capillary refill < 3 seconds, Range of motion: intact in all extremities. 19:15 Reassessment: Patient appears in no apparent distress at this time. Patient and/or jb4 family updated on plan of care and expected duration. Pain level reassessed. Patient is alert, oriented x 3, equal unlabored respirations, skin warm/dry/pink. 20:15 Reassessment: Patient appears in no apparent distress at this time. Patient and/or jb4 family updated on plan of care and expected duration. Pain level reassessed. Patient is alert, oriented x 3, equal unlabored respirations, skin warm/dry/pink. 21:21 Reassessment: No changes from previously documented assessment. Patient and/or family kd3 updated on plan of care and expected duration. Pain level reassessed. Patient is alert, oriented x 3, equal unlabored respirations, skin warm/dry/pink. 22:40 General: Appears in no apparent distress. Behavior is calm, cooperative. Neuro: Level kd3 of Consciousness is awake, alert, obeys commands, Oriented to person, place, time, situation. Cardiovascular: Patient's skin is warm and dry. 23:33 Reassessment: Patient appears in no apparent distress at this time. Patient and/or jb4 family updated on plan of care and expected duration. Pain level reassessed. Patient is alert, oriented x 3, equal unlabored respirations, skin warm/dry/pink. Vital Signs: 18:30 BP 159 / 84; Pulse 87; Resp 17; Temp 97.7; Pulse Ox 100% on R/A; Weight 71.67 kg; jl7 Height 5 ft. 4 in. (162.56 cm); Pain 7/10; 19:16 BP 113 / 74; Pulse 83; Resp 19; Pulse Ox 97% on R/A; kd3 20:00 BP 114 / 76; Pulse 74; Resp 16; Pulse Ox 99% on R/A; jb4 21:19 BP 122 / 70; Pulse 72; Resp 18; Pulse Ox 99% on R/A; kd3 22:39 BP 117 / 80; Pulse 76; Resp 18; Pulse Ox 98% on R/A; kd3 18:30 Body Mass Index 27.12 (71.67 kg, 162.56 cm) jl7 Vitals: 22:40 Cardiac Rhythm Assessment Sinus rhythm. kd3 ED Course: 18:23 Patient arrived in ED. rg4 18:25 Maryjane Monahan FNP-C is PHCP. snw 18:25 Avi Pierce DO is Attending Physician. snw 18:31 Inga Smith, MASSIEL is Primary Nurse. kc6 18:33 Triage completed. jl7 18:33 Arm band placed on right wrist. jl7 18:44 EKG done, by ED staff, reviewed by Maryjane CUELLO. jd3 18:58 COVID-19/FLU A+B/RSV Sent. kc6 18:58 Inserted saline lock: 20 gauge in right antecubital area, using aseptic technique. kc6 Blood collected. 19:00 Patient has correct armband on for positive identification. Bed in low position. Call kc6 light in reach. Side rails up X 1. Adult w/ patient. 19:36 Primary Nurse role handed off by Inga Smith RN kd3 19:36 Polina Merida, MASSIEL is Primary Nurse. kd3 19:40 XRAY Chest (1 view) In Process Unspecified. EDMS 19:43 PHCP role handed off by Maryjane Monahan FNP-C snw 19:43 Lance Fried PA is PHCP. snw 22:41 Warm blanket given. Assisted to bathroom. kd3 23:33 No provider procedures requiring assistance completed. IV discontinued, intact, jb4 bleeding controlled, No redness/swelling at site. Pressure dressing applied. Administered Medications: 18:57 Drug: Aspirin Chewable Tablet 324 mg Route: PO; kc6 18:57 Drug: Albuterol 2.5 mg Route: Inhalation; kc6 18:57 Drug: SOLU-Medrol (methylPrednisoLONE) 125 mg Route: IVP; Site: right antecubital; kc6 19:30 Follow up: Response: No adverse reaction jb4 18:57 Drug: Pepcid (famotidine) 20 mg Route: IVP; Site: right antecubital; kc6 19:30 Follow up: Response: No adverse reaction jb4 19:50 Drug: NS 0.9% 500 ml Volume: 500 ml; Route: IV; Rate: 1 bolus; Site: right antecubital; jb4 20:30 Follow up: Response: No adverse reaction; IV Status: Completed infusion; IV Intake: jb4 500ml Medication: 22:41 VIS not applicable for this client. kd3 Intake: 20:30 IV: 500ml; Total: 500ml. jb4 Outcome: 23:12 Discharge ordered by MD. kylah 23:33 Discharged to home ambulatory, with family. jb4 23:33 Condition: stable 23:33 Discharge instructions given to patient, Instructed on discharge instructions, follow up and referral plans. medication usage, Demonstrated understanding of instructions, follow-up care, medications, Prescriptions given X 4. 23:34 Patient left the ED. jb4 Signatures: Dispatcher [employer] EDMS Maryjane Monahan, SUPERINTENDENT [employer]-C SUPERINTENDENT [employer]-Csnw Lance Fried PA PA cp Garcia, Rubi rg4 Colby Schaffer RN RN jb4 Laura Marie RN RN jl7 Rafiq Atkins RN RN Polina Hudson RN RN kd3 Inga Smith, RN RN kc6 Corrections: (The following items were deleted from the chart) 18:34 18:33 Home Meds: None; jl7 jl7
--- NOTE | 2022-11-09 23:13 | EDPHYS ---
Physician Documentation [facility] Name: Carolina Rivera Age: 52 yrs Sex: Female : 1970 Arrival Date: 11/09/2022 Time: 18:23 Bed 5 Private MD: ED Physician Avi Pierce HPI: 11/09 18:31 This 52 yrs old Female presents to ER via Unassigned with complaints of snw Abnormal EKG. 18:31 The patient or guardian reports chest pain that is located primarily in the substernal snw area. Onset: acutely. The pain radiates to Associated signs and symptoms: Pertinent positives: cough. The chest pain is described as a heaviness. Duration: The patient or guardian reports multiple episodes. Severity of pain: At its worst the pain was moderate. The patient has not experienced similar symptoms in the past. The patient has been recently seen by a physician: the patient's primary care provider, with similar presenting complaints, and was sent to the [facility] Emergency Department for further evaluation. 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 - Social history:: Smoking status: Patient reports the use of cigarette tobacco products. ROS: 18:31 Constitutional: Negative for fever, chills, and weight loss, Eyes: Negative for injury, snw pain, redness, and discharge, ENT: Negative for injury, pain, and discharge, Neck: Negative for injury, pain, and swelling, Respiratory: Negative for shortness of breath, cough, wheezing, and pleuritic chest pain, Abdomen/GI: Negative for abdominal pain, nausea, vomiting, diarrhea, and constipation, Back: Negative for injury and pain, : Negative for injury, bleeding, discharge, and swelling, MS/Extremity: Negative for injury and deformity, Skin: Negative for injury, rash, and discoloration, Neuro: Negative for headache, weakness, numbness, tingling, and seizure, Psych: Negative for depression, anxiety, suicide ideation, homicidal ideation, and hallucinations. 18:31 Cardiovascular: Positive for chest pain, of the mid-sternal area. Exam: 18:30 Constitutional: This is a well developed, well nourished patient who is awake, alert, snw and in no acute distress. Head/Face: Normocephalic, atraumatic. Eyes: Pupils equal round and reactive to light, extra-ocular motions intact. Lids and lashes normal. Conjunctiva and sclera are non-icteric and not injected. Cornea within normal limits. Periorbital areas with no swelling, redness, or edema. ENT: Nares patent. No nasal discharge, no septal abnormalities noted. Tympanic membranes are normal and external auditory canals are clear. Oropharynx with no redness, swelling, or masses, exudates, or evidence of obstruction, uvula midline. Mucous membranes moist. Neck: Trachea midline, no thyromegaly or masses palpated, and no cervical lymphadenopathy. Supple, full range of motion without nuchal rigidity, or vertebral point tenderness. No Meningismus. Chest/axilla: Normal chest wall appearance and motion. Nontender with no deformity. No lesions are appreciated. Cardiovascular: Regular rate and rhythm with a normal S1 and S2. No gallops, murmurs, or rubs. Normal PMI, no JVD. No pulse deficits. Abdomen/GI: Soft, non-tender, with normal bowel sounds. No distension or tympany. No guarding or rebound. No evidence of tenderness throughout. Back: No spinal tenderness. No costovertebral tenderness. Full range of motion. Skin: Warm, dry with normal turgor. Normal color with no rashes, no lesions, and no evidence of cellulitis. MS/ Extremity: Pulses equal, no cyanosis. Neurovascular intact. Full, normal range of motion. Neuro: Awake and alert, GCS 15, oriented to person, place, time, and situation. Cranial nerves II-XII grossly intact. Motor strength 5/5 in all extremities. Sensory grossly intact. Cerebellar exam normal. Normal gait. Psych: Awake, alert, with orientation to person, place and time. Behavior, mood, and affect are within normal limits. 18:30 Respiratory: the patient does not display signs of respiratory distress, Respirations: normal, Breath sounds: bronchial sounds, that are moderate, pain on inspiration, followed by cough. Vital Signs: 18:30 BP 159 / 84; Pulse 87; Resp 17; Temp 97.7; Pulse Ox 100% on R/A; Weight 71.67 kg; jl7 Height 5 ft. 4 in. (162.56 cm); Pain 7/10; 19:16 BP 113 / 74; Pulse 83; Resp 19; Pulse Ox 97% on R/A; kd3 20:00 BP 114 / 76; Pulse 74; Resp 16; Pulse Ox 99% on R/A; jb4 21:19 BP 122 / 70; Pulse 72; Resp 18; Pulse Ox 99% on R/A; kd3 22:39 BP 117 / 80; Pulse 76; Resp 18; Pulse Ox 98% on R/A; kd3 18:30 Body Mass Index 27.12 (71.67 kg, 162.56 cm) jl7 MDM: 18:32 The patient was given aspirin in the Emergency Department. MAHIN Risk Score: 1 - Three snw or more CAD risk factors, 1 - Recent [<24hrs] Severe Angina, TOTAL SCORE = 2. Data reviewed: vital signs, nurses notes. Counseling: I had a detailed discussion with the patient and/or guardian regarding:. 18:33 Patient medically screened. snw 19:00 Differential diagnosis: acute myocardial infarction, acute pericarditis, chest wall cp pain, costochondritis, pleurisy, pneumonia, pneumothorax, pulmonary embolus, stable angina, unstable angina, pneumonia. 19:42 Transition of care: After a detail discussion of the patient's case, care is snw transferred to Lance REINA. 23:12 ED course: VSS. Symptoms improved with meds. Repeat troponin negative, initial EKG cp normal. Will discharge to home for continued monitoring. 11/09 18:26 Order name: Basic Metabolic Panel; Complete Time: 20:34 snw 11/09 20:34 Interpretation: Normal except: CL 108; GLUC 127. cp 11/09 18:26 Order name: CBC with Diff; Complete Time: 19:15 snw 11/09 20:34 Interpretation: Normal except: MPV 7.1. cp 11/09 18:26 Order name: LFT's; Complete Time: 20:34 snw 11/09 18:26 Order name: Magnesium; Complete Time: 20:34 snw 11/09 18:26 Order name: NT PRO-BNP; Complete Time: 20:34 snw 11/09 18:26 Order name: PT-INR; Complete Time: 19:36 snw 11/09 18:26 Order name: Troponin HS; Complete Time: 20:34 snw 11/09 18:26 Order name: XRAY Chest (1 view); Complete Time: 20:02 snw 11/09 20:02 Interpretation: Report review. 11/09 18:29 Order name: Blood Culture Adult (2) snw 11/09 18:30 Order name: COVID-19/FLU A+B/RSV; Complete Time: 20:02 snw 11/09 22:16 Order name: Troponin High Sensitivity: redraw at 2230; Complete Time: 23:11 11/09 23:11 Interpretation: Reviewed. 11/09 18:26 Order name: EKG; Complete Time: 18:27 snw 11/09 18:26 Order name: Cardiac monitoring; Complete Time: 18:44 snw 11/09 18:26 Order name: EKG - Nurse/Tech; Complete Time: 18:44 snw 11/09 18:26 Order name: IV Saline Lock; Complete Time: 18:57 snw 11/09 18:26 Order name: Labs collected and sent; Complete Time: 18:57 snw 11/09 18:26 Order name: O2 Per Protocol; Complete Time: 18:44 snw 11/09 18:26 Order name: O2 Sat Monitoring; Complete Time: 18:44 snw EC:40 Rate is 78 beats/min. Rhythm is regular. QRS [place] is Normal. TN interval is normal. QRS snw interval is normal. QT interval is normal. No Q waves. T waves are Inverted in leads aVL, aVR. Clinical impression: NSR w/ Non-specific ST/T Changes. Administered Medications: 18:57 Drug: Aspirin Chewable Tablet 324 mg Route: PO; kc6 18:57 Drug: Albuterol 2.5 mg Route: Inhalation; kc6 18:57 Drug: SOLU-Medrol (methylPrednisoLONE) 125 mg Route: IVP; Site: right antecubital; kc6 19:30 Follow up: Response: No adverse reaction jb4 18:57 Drug: Pepcid (famotidine) 20 mg Route: IVP; Site: right antecubital; kc6 19:30 Follow up: Response: No adverse reaction jb4 19:50 Drug: NS 0.9% 500 ml Volume: 500 ml; Route: IV; Rate: 1 bolus; Site: right antecubital; jb4 20:30 Follow up: Response: No adverse reaction; IV Status: Completed infusion; IV Intake: jb4 500ml Disposition: 11/10 10:28 Co-signature as Attending Physician, Avi Pierce DO I was immediately available on-site ms3 in the Emergency Department for consultation in the care of the patient. . Disposition Summary: 11/09/22 23:12 Discharge Ordered Location: Home cp Problem: new cp Symptoms: have improved cp Condition: Stable cp Diagnosis - Cough cp - Chest pain, unspecified cp Followup: cp - With: Private Physician - When: 2 - 3 days - Reason: Recheck today's complaints Discharge Instructions: - Discharge Summary Sheet cp - Nonspecific Chest Pain, Adult cp - Aspirin and Your Heart cp - Cough, Adult cp Forms: - Medication Reconciliation Form cp - Thank You Letter cp - Antibiotic Education cp - Prescription Opioid Use cp - Work release form jb4 Prescriptions: - albuterol sulfate 90 mcg/actuation Inhalation HFA aerosol inhaler - inhale 1 puff by INHALATION route every 4-6 hours; 1 Inhaler; Refills: 0, cp Product Selection Permitted - Bromfed DM 2-30-10 mg/5 mL Oral syrup - take 10 milliliter by ORAL route every 6 hours; 180 milliliter; Refills: 0, cp Product Selection Permitted - Ibuprofen 800 mg Oral Tablet - take 1 tablet by ORAL route every 8 hours As needed take with food; 30 tablet; cp Refills: 0, Product Selection Permitted - Zithromax Z-Richie 250 mg Oral Tablet - take 1 tablet by ORAL route as directed for 5 days Day 1 - take two (2) tablets cp one time. Day 2, 3, 4 , 5 take one (1) tablet once daily.; 6 tablet; Refills: 0, Product Selection Permitted Signatures: Dispatcher [employer] Maryjane Castano FNP-C FNP-Lance Carvalho PA PA cp Bryson, James RN RN jb4 Laura Marie RN RN jl7 Avi Pierce DO DO ms3 Inga Smith RN RN kc6 Corrections: (The following items were deleted from the chart) 11/09 18:34 18:33 Home Meds: None; jl7 jl7
[2022-11-09 23:38] VITALS: TEMP 97.7
[2022-11-09 23:43] VITALS: BP 117/80; O2SAT 98
--- NOTE | 2022-11-10 13:59 | EKG ---
Test Date: 2022-11-09 Test Time: 18:35:12 President And Cmo: RONALDO MEASUREMENT RESULTS: Intervals: Rate: 78 UT: 140 QRSD: 76 QT: 386 QTc: 440 [place]: P: 61 UT: 140 QRS: 43 T: 67 INTERPRETIVE STATEMENTS: Normal sinus rhythm Normal ECG Compared to ECG 02/08/2021 20:15:53 No significant changes Electronically Signed On 11-10-22 13:59:00 SPECIFICATION CONSULTANT by Ashish Calvin
== END 2022-11-09 23:34 | disposition home or self-care (01) ==
LOC: ER 18:21
DX: R07.89 Other chest pain (principal); R05.9 Cough, unspecified; I10 Essential (primary) hypertension; Z20.822 Contact with and (suspected) exposure to COVID-19; Z88.0 Allergy status to penicillin; Z72.0 Tobacco use
CPT/HCPCS: 87040 ×2; 85025; 80048; 36415; 83735; 85610; 80076; 84484 ×2; 83880; 0241U; 71045; J7613; J7040; J2930; 93005; 96361; 96374; 96375; 99285

== ENCOUNTER 2023-03-16 08:02 | Emergency (ER) | payer OTHER ==
--- OUTSIDE RECORDS SUMMARY | 2023-03-16 08:15 | XMS REPORT | Continuity of Care Document ---
:1970 Author Organization [facility] t Address [address] [facility] [address] [place] [address] Care Team Providers Name Role Phone Maria De Jesus MARISCAL, Marleni Primary Care Physician [phone] [place]SON [place] Attending Clinician Unavailable Pranva Peña MD Attending Clinician Payers Payer Name Policy Type Policy Number Effective Date Expiration Date S [facility] [id number] 2019 00:00:00 Problems This patient has no known problems. Allergies, Adverse Reactions, Alerts Allergy Allergy Status Severity Reaction(s) Onset Inactive Treating Comm ents Source Name Type Date Date Clinician Penicill Propensi Active 2021-11 ins - ty to 0-03 CLASS adverse 00:00: reaction 00 to drug PENICILL DRUG Active ITCHING [facility] IN INGREDI 2-27 ity of 00:00: [address] Penicill Propensi Active ins ty to 5-03 adverse 00:00: reaction 00 to drug NO KNOWN Drug Active Univers ALLERGIE Class ity of S [facility] Medications Ordered Filled Start Stop Current Ordering Indication Dosage Frequency Signature Comments Components Source Medication Medication Date Date Medication? Clinician (SIG) Name Name TAKE 2021-11 No TABLET 1-11 DAILY. 00:00: 00 [...] 12 Leads W/ I r 2022-03-04 00:00:00 68008 - Removal Of Impacted Cerumen 2021-02-11 00:00:00 Using Irrigation/lavage Plan of Care Planned Activity Planned Date Details Comments Source Goal Plan of Care Note [code = 84987-0] Goal Plan of Care Note [code = 63574-7] Goal Plan of Care Note [code = 46514-4] Goal Plan of Care Note [code = 13802-0] Goal Plan of Care Note [code = 29753-6] Goal Plan of Care Note [code = 62094-8] Goal Plan of Care Note [code = 39807-0] Goal Plan of Care Note [code = 71768-1] Goal Plan of Care Note [code = 26150-6] Goal Plan of Care Note [code = 57545-1] Goal Plan of Care Note [code = 80602-8] Goal Plan of Care Note [code = 15465-4] Goal Plan of Care Note [code = 12807-4] Goal Plan of Care Note [code = 21046-5] Goal Plan of Care Note [code = 86295-6] Goal Plan of Care Note [code = 19339-4] Goal Plan of Care Note [code = 23434-0] Goal Plan of Care Note [code = 41518-5] Goal Plan of Care Note [code = 65864-2] Goal Plan of Care Note [code = 30898-5] Goal Plan of Care Note [code = 52221-1] Goal Plan of Care Note [code = 77080-5] Goal Plan of Care Note [code = 67373-6] Goal Plan of Care Note [code = 51938-0] Goal Plan of Care Note [code = 07061-0] Goal Plan of Care Note [code = 22816-1] Goal Plan of Care Note [code = 68679-1] Goal Plan of Care Note [code = 31985-1] Goal Plan of Care Note [code = 28320-9] Goal Plan of Care Note [code = 08277-5] Goal Plan of Care Note [code = 26607-7] Goal Plan of Care Note [code = 98856-5] Goal Plan of Care Note [code = 91070-3] Goal Plan of Care Note [code = 77671-1] Goal Plan of Care Note [code = 10352-5] Goal Plan of Care Note [code = 41338-6] Goal Plan of Care Note [code = 53521-9] Goal Plan of Care Note [code = 91276-7] Goal Plan of Care Note [code = 54418-7] Goal Plan of Care Note [code = 26879-8] Goal Plan of Care Note [code = 40920-6] Goal Plan of Care Note [code = 65078-2] Goal Plan of Care Note [code = 98103-3] Goal Plan of Care Note [code = 72068-8] Encounters Start End Encounter Admission Attending Care Care Encounter Source Date/Time Date/Time Type Type Clinicians Facility Department ID 2023-03-14 2023-03-14 Outpatient SFA SFA [id number] Shmuel 08:28:39 08:28:39 0424 F Nacho 2023-01-12 2023-01-12 Outpatient SFA SFA [id number] Shmuel 14:23:24 14:23:24 0222 F Nacho 2023-01-10 2023-01-10 Outpatient SFA SFA [id number] Shmuel 09:29:30 09:29:30 0220 F Nacho 2023-01-07 2023-01-07 Outpatient SFA SFA [id number] Shmuel 15:27:00 15:27:00 0217 F Calhoun 2022-11-09 2022-11-09 Outpatient SFA SFA [id number] 022 Shmuel 16:26:02 16:26:02 1220 F Calhoun 2022-10-01 2022-10-01 Outpatient SFA SFA [id number] 022 Shmuel 16:35:49 16:35:49 1111 F Calhoun 2022-10-01 2022-10-01 Outpatient [id number] 00:00:00 00:00:00 Visit r803-58qd 562-48ca-b -r0t8-d89 7d9-c8288n 48i0a34k2 2c04b2 2022-08-26 2022-08-26 Outpatient SFA SFA [id number] Shmuel 16:08:31 16:08:31 1006 F Nacho 2022-08-26 2022-08-26 Outpatient [id number]- [id number] yso5v7-4 00:00:00 00:00:00 Visit 3x4y-79rx g7p-63fi-b -bca2-802 ca2-802dfc kun817l6q 035a2d 2022-08-242022-08-24 Outpatient [facility] [id number] Shmuel 09:21:51 09:21:51 1004 F Nacho 2022-08-23 2022-08-23 Outpatient [facility] [id number] Shmuel 15:41:04 15:41:04 1003 F Nacho 2022-08-23 2022-08-23 Outpatient [id number]- [id number] 8fpu96-8 00:00:00 00:00:00 Visit 6313-41b4 313-41b4-b -no14-310 n46-938nr5 vy31a0or2 3e8bb3 2021-06-08 2021-06-08 Emergency X LILIAN, [facility] ERT [id number] Univers 18:35:00 18:35:00 [facility] 2020-01-17 2020-01-17 [id number] 10:08:04 10:53:00 Pranav Lebron 350.1.13.10 [place] 4.2.7.2.686 [place] [id number] 2020-01-17 2020-01-17 Emergency X [facility] ERT [id number] Univers 09:56:00 09:56:00 [facility] Results Test Description Test Time Test Comments Results Result Comments Source HEMOGLOBIN A1c 2023-01-13 02:47:15 Test Item Value Reference Range Interpretation Comme nts HEMOGLOBIN A1c (test 6.1 % 4.2-5.6 H [employer] GUIDELINES FOR code = 50672) HGB A1C: PREDI ABETES/INCREASED RISK . . . . . . . 5.7-6.4% DI AGNOSIS OF DIABETES . . . . . . . . . >=6.5% WITH CONFIRMATION OR APPROPRIATE SYM PTOMS NOTE: ASSAY MAY BE AFFECTED BY HEM OGLOBINOPATHIES (SICKLE CELL ANEMIA, S-C DIS EASE, OTHERS) OR ARTIFICIALLY LOWERED BY DECR EASED RED CELL SURVIVAL (HEMOLYTIC ANEM IAS, BLOOD LOSS, ETC.). CONSIDER ALTERN ATE TESTING OR LABORATORY CONSULTATION. * [facility] has important pathology staff changes e ffective 01/19/2023. New pathology staff will provide uninterrupted, excellent patie nt care and clinical consultation. S ee URL: [email or web address]. UNLESS OTHERWISE INDIC ATED, ALL TESTING PERFORMED AT [employer] [address] [place] [address] NURSING INFORMATICS ANALYST: KHUSHBU REYNA M.D. CLIA NUMBER [id number] [place]. [id number] VITAMIN [id number] 03:08:37 Test Item Value Reference Range Interpretation Comments VITAMIN B-12 (test 357 PG/ML 200-950 [facility] has important code = 2840) pathology staff changes effective 01/19. New patholo gy staff will provide uninterrupted, excellent patie nt care and clinical consultation. S URL: [email or web address]. UNLESS OTHERWISE INDIC ATED, ALL TESTING PER FORMED AT CLINICAL [facility]ATED WITHIN [facility]. [address] [place] [address] CLIA: [id number], CAP: VITAMIN D, 25 [id number] 03:08:06 Test Item Value Reference Range Interpretation Comments VITAMIN D, 25 20 NG/ML SEE BELOW L EFFECTIVE 11/29/2022, [place] (test code PLEASE NOTE NE W METHODOLOGY = 4958) IS ELECTROCH EMILUMINESCENCE BINDING ASSAY. NOTE: 25-HYDROXYVITAM IN D ASSAY INCLUDES 25-HYD ROXYVITAMIN D2 AND D3. I NTERPRETIVE RANGES PED IATRIC (<17 YEARS) . . . . . . . . . . . NG/ML 20-100ADU LT: INSUFFICIENT . . . . . . . . . . . . . . NG/ML <20 SUBOP TIMAL . . . . . . . . . . . . . . . NG/ML 20-29 OPTIMAL . . . . . . . . . . . . . . . . . NG/ML 30-100 COMPREHENSIVE METABOLIC [id number] 01:53:57 Test Item Value Reference Range Interpretation Comments GLUCOSE (test code = 106 MG/DL 70-99 H 2216) BUN (test code = 11 MG/DL 6-2207) CREATININE (test 0.71 MG/DL 0.60-1.30 code = 2214) eGFR (2020 CKD-EPI) 103 >60 (test code = 97338) ML/MIN/1.73 CALC BUN/CREAT (test 15 RATIO 6-28 code = 223) SODIUM (test code = 139 MEQ/L 185-688 0846) POTASSIUM (test code 4.7 MEQ/L 3.5-5.4 = 2227) CHLORIDE (test code 103 MEQ/L 95-107 = 2214) CARBON DIOXIDE (test 24 MEQ/L 19-31 code = 220) CALCIUM (test code = 9.6 MG/DL 8.5-10.5 2208) PROTEIN, TOTAL (test 6.7 G/DL 6.1-8.3 code = 2228) ALBUMIN (test code = 4.4 G/DL 3.5-5.2 2200) CALC GLOBULIN (test 2.3 G/DL 1.9-3.7 code = 2239) CALC A/G RATIO (test 1.9 RATIO 1.0-2.6 code = 2233) BILIRUBIN, TOTAL <0.2 MG/DL See_Comment [Automated message] (test code = 2206) The syste [employer] which generated this result transmit slevin reference range : <=1.2. The refe rence range was not u sed to interpret th is result as normal/abnormal . ALKALINE PHOSPHATASE 109 U/L 40-130 (test code = 2203) AST (test code = 14 U/L 9-40 2217) ALT (test code = 13 U/L 5-40 2218) LIPID [id number] 01:53:57 Test Item Value Reference Range Interpretation Comments CHOLESTEROL (test 194 MG/DL <200 code = 2210) TRIGLYCERIDES (test 284 MG/DL <150 H code = 2232) HDL CHOLESTEROL (test 47 MG/DL >39 code = 2220) CALC LDL CHOL (test 106 MG/DL <100 H NOTE: C ALCULATED LDL code = 2237) IS BASED ON DENISSE-REICH METHOD WHICHINCLUDES ADJUSTABLE TRIGLYCERIDE:VL DL CHOLESTEROL RAT IO.THIS FACTOR VARIES B Y MEASURED TRIGLY CERIDE AND NON-HDLCHOL ESTEROL CONCENTRATIONS WITH INCREASED CALCU LATED LDL SEENIN HIGH ER TRIGLYCERIDE OR LOWER NON-HDL SPECIME NS. FOR MOREINFORMATION , SEE CLIENT ANNOUNCE MENT AT [email or web address] [email or web address] RATIO LDL/HDL 2.26 RATIO <3.22 (test code = 2238) CBC W/AUTO DIFF WITH [id number] 03:53:28 Test Item Value Reference Range Interpretation Comments WBC (test code = 11.4 K/UL 3.5-11.0 H 1001) RBC (test code = 4.52 M/UL 3.80-5.40 1002) HEMOGLOBIN (test code 14.6 G/DL 11.5-15.5 = 1003) HEMATOCRIT (test code 41.9 % 34.0-45.0 = 1004) MCV (test code = 92.7 fL 80.0-99.0 1005) MCH (test code = 32.3 PG 25.0-33.0 1006) MCHC (test code = 34.8 G/DL 31.0-36.0 1007) RDW (test code = 12.4 % 11.5-15.0 1038) NEUTROPHILS (test 62.2 % code = 1008) LYMPHOCYTES (test 28.3 % code = 1010) MONOCYTES (test code 5.6 % = 1011) EOSINOPHILS (test 3.2 % code = 1012) BASOPHILS (test code 0.5 % = 1013) IMMATURE GRANULOCYTES 0.2 % (test code = 1036) NUCLEATED RBCS (test 0.0 /100 WBC'S See_Comment [Aut omated code = 1065) message] The sy stem which generated this result transmitted reference range : 0.0. The refere nce range was not u sed to interpret th is result as normal/abnormal . PLATELET COUNT (test 280 K/UL 130-400 code = 1015) ABSOLUTE NEUTROPHILS 7.06 K/UL 1.50-7.50 (test code = 1066) ABSOLUTE LYMPHOCYTES 3.22 K/UL 1.00-4.00 (test code = 1067) ABSOLUTE MONOCYTES 0.64 K/UL 0.20-1.00 (test code = 1068) ABSOLUTE EOSINOPHILS 0.36 K/UL 0.00-0.50 (test code = 1040) ABSOLUTE BASOPHILS 0.06 K/UL 0.00-0.20 (test code = 1069) ABS IMMATURE 0.02 K/UL 0.00-0.10 GRANULOCYTES (test code = 1020) ABS NUCLEATED RBCS 0.00 K/UL 0.00-0.11 (test code = 67069) TSH, THIRD [id number] 05:03:02 Test Item Value Reference Range Interpretation Comments TSH, THIRD 1.820 UIU/ML 0.400-4.100 UNLESS OTHERWI SE GENERATION (test INDICATED, ALL TESTING code = 2821) PERFORMED [facility], [place]. [address] [place] [address] FORMERLY [facility] DIRECTOR: KHUSHBU BENJAMIN M.D. IA NUMBER [id number] CAP ACCREDITATION N O. [id number] COMPREHENSIVE METABOLIC [id number] 04:36:14 Test Item Value Reference Range Interpretation Comments GLUCOSE (test code = 95 MG/DL 70-99 2216) BUN (test code = 9 MG/DL 6-20 2207) CREATININE (test 0.61 MG/DL 0.60-1.30 code = 221) eGFR (2020 CKD-EPI) 109 >60 (test code = 66288) ML/MIN/1.73 CALC BUN/CREAT (test 15 RATIO 6-28 code = 2235) SODIUM (test code = 139 MEQ/L 358-101 9878) POTASSIUM (test code 4.4 MEQ/L 3.5-5.4 = 2227) CHLORIDE (test code 103 MEQ/L 95-107 = 221) CARBON DIOXIDE (test 23 MEQ/L 19-31 code = 2206) CALCIUM (test code = 9.7 MG/DL 8.5-10.5 2208) PROTEIN, TOTAL (test 6.8 G/DL 6.1-8.3 code = 2229) ALBUMIN (test code = 4.5 G/DL 3.5-5.2 2200) CALC GLOBULIN (test 2.3 G/DL 1.9-3.7 code = 2240) CALC A/G RATIO (test 2.0 RATIO 1.0-2.6 code = 2234) BILIRUBIN, TOTAL 0.3 MG/DL See_Comment [Automated message] (test code = 2207) The syste m which generated this result transmit selvin reference range : <=1.2. The refe rence range was not u sed to interpret th is result as normal/abnormal . ALKALINE PHOSPHATASE 97 U/L 40-128 (test code = 2204) AST (test code = 13 U/L 9-40 2218) ALT (test code = 15 U/L 5-40 2218) LIPID [id number] 04:36:14 Test Item Value Reference Range Interpretation [...] MOREINFORMATION , SEE CLIENT ANNOUNCE MENT AT [email or web address] [email or web address] RATIO LDL/HDL 2.39 RATIO <3.22 (test code = 2238) CBC W/AUTO DIFF WITH [id number] 03:33:13 Test Item Value Reference Range Interpretation [...] RBCS 0.00 K/UL 0.00-0.11 (test code = 34365) CBC W/AUTO [id number] 00:00:00 Test Item Value Reference Range Interpretation [...] NUCLEATED RBCS (test code = 0.00 K/UL 56540) CBC W/AUTO [id number] 00:00:00 Test Item Value Reference Range Interpretation [...] NUCLEATED RBCS (test code = 0.00 K/UL 10284) CBC W/AUTO [id number] 00:00:00 Test Item Value Reference Range Interpretation [...] NUCLEATED RBCS (test code = 0.00 K/UL 07086) COMPREHENSIVE METABOLIC [id number] 00:00:00 Test Item Value Reference Range Interpretation Comments GLUCOSE (test code = 2217) 95 MG/DL BUN (test code = 2208) 9 MG/DL CREATININE (test code = 2214) 0.61 MG/DL eGFR (2020 CKD-EPI) (test 109 ML/MIN/1.73 code = 36312) CALC BUN/CREAT (test code = 15 RATIO 2235) SODIUM (test code = 2231) 139 MEQ/L POTASSIUM (test code = 2228) 4.4 MEQ/L CHLORIDE (test code = 2215) 103 MEQ/L CARBON DIOXIDE (test code = 23 MEQ/L 2206) CALCIUM (test code = 2209) 9.7 MG/DL PROTEIN, TOTAL (test code = 6.8 G/DL 2229) ALBUMIN (test code = 2201) 4.5 G/DL CALC GLOBULIN (test code = 2.3 G/DL 2240) CALC A/G RATIO (test code = 2.0 RATIO 2234) BILIRUBIN, TOTAL (test code = 0.3 MG/DL 2207) ALKALINE PHOSPHATASE (test 97 U/L code = 2204) AST (test code = 2218) 13 U/L ALT (test code = 2219) 15 U/L COMPREHENSIVE METABOLIC [id number] 00:00:00 Test Item Value Reference Range Interpretation Comments GLUCOSE (test code = 2217) 95 MG/DL BUN (test code = 2208) 9 MG/DL CREATININE (test code = 2214) 0.61 MG/DL eGFR (2020 CKD-EPI) (test 109 ML/MIN/1.73 code = 69560) CALC BUN/CREAT (test code = 15 RATIO [...] A/G RATIO (test code = 2.0 RATIO 4) BILIRUBIN, TOTAL (test code = 0.3 MG/DL 2206) ALKALINE PHOSPHATASE (test 97 U/L code = 2204) AST (test code = 2218) 13 U/L ALT (test code = 2219) 15 U/L LIPID [id number] 00:00:00 Test Item Value Reference Range Interpretation Comments CHOLESTEROL (test code = 2210) 190 MG/DL TRIGLYCERIDES (test code = 2232) 217 MG/DL HDL CHOLESTEROL (test code = 2220) 46 MG/DL CALC LDL CHOL (test code = 2237) 110 MG/DL RISK RATIO LDL/HDL (test code = 2.39 RATIO 2238) LIPID [id number] 00:00:00 Test Item Value Reference Range Interpretation Comments CHOLESTEROL (test code = 2210) 190 MG/DL TRIGLYCERIDES (test code = 2232) 217 MG/DL HDL CHOLESTEROL (test code = 2220) 46 MG/DL CALC LDL CHOL (test code = 2237) 110 MG/DL RISK RATIO LDL/HDL (test code = 2.39 RATIO 2238) [id number] 00:00:00 Test Item Value Reference Range Interpretation Comments TSH, THIRD GENERATION (test code 1.820 UIU/ML = 2821) [id number] 00:00:00 Test Item Value Reference Range Interpretation Comments TSH, THIRD GENERATION (test code 1.820 UIU/ML = 2821) [id number] 00:00:00 Test Item Value Reference Range Interpretation Comments TSH, THIRD GENERATION (test code 1.820 UIU/ML = 2821) CBC W/AUTO [id number] 00:00:00 Test Item Value Reference Range Interpretation [...] NUCLEATED RBCS (test code = 0.00 K/UL 21365) CBC W/AUTO [id number] 00:00:00 Test Item Value Reference Range Interpretation [...] NUCLEATED RBCS (test code = 0.00 K/UL 01879) CBC W/AUTO [id number] 00:00:00 Test Item Value Reference Range Interpretation [...] NUCLEATED RBCS (test code = 0.00 K/UL 51966) COMPREHENSIVE METABOLIC [id number] 00:00:00 Test Item Value Reference Range Interpretation Comments GLUCOSE (test code = 2217) 95 MG/DL BUN (test code = 2208) 9 MG/DL CREATININE (test code = 2214) 0.61 MG/DL eGFR (2020 CKD-EPI) (test 109 ML/MIN/1.73 code = 84855) CALC BUN/CREAT (test code = 15 RATIO [...] code = 2219) 15 U/L COMPREHENSIVE METABOLIC [id number] 00:00:00 Test Item Value Reference Range Interpretation Comments GLUCOSE (test code = 2217) 95 MG/DL BUN (test code = 2208) 9 MG/DL CREATININE (test code = 2214) 0.61 MG/DL eGFR (2020 CKD-EPI) (test 109 ML/MIN/1.73 code = 84941) CALC BUN/CREAT (test code = 15 RATIO [...] (test code = 2219) 15 U/L LIPID [id number] 00:00:00 Test Item Value Reference Range Interpretation Comments CHOLESTEROL (test code = 2210) 190 MG/DL TRIGLYCERIDES (test code = 2232) 217 MG/DL HDL CHOLESTEROL (test code = 2220) 46 MG/DL CALC LDL CHOL (test code = 2237) 110 MG/DL RISK RATIO LDL/HDL (test code = 2.39 RATIO 2238) LIPID [id number] 00:00:00 Test Item Value Reference Range Interpretation Comments CHOLESTEROL (test code = 2210) 190 MG/DL TRIGLYCERIDES (test code = 2232) 217 MG/DL HDL CHOLESTEROL (test code = 2220) 46 MG/DL CALC LDL CHOL (test code = 2237) 110 MG/DL RISK RATIO LDL/HDL (test code = 2.39 RATIO 2238) [id number] 00:00:00 Test Item Value Reference Range Interpretation Comments TSH, THIRD GENERATION (test code 1.820 UIU/ML = 2821) [id number] 00:00:00 Test Item Value Reference Range Interpretation Comments TSH, THIRD GENERATION (test code 1.820 UIU/ML = 2821) [id number] 00:00:00 Test Item Value Reference Range Interpretation Comments TSH, THIRD GENERATION (test code 1.820 UIU/ML = 2821) CBC W/AUTO [id number] 00:00:00 Test Item Value Reference Range Interpretation [...] NUCLEATED RBCS (test code = 0.00 K/UL 75084) CBC W/AUTO [id number] 00:00:00 Test Item Value Reference Range Interpretation [...] NUCLEATED RBCS (test code = 0.00 K/UL 54965) CBC W/AUTO [id number] 00:00:00 Test Item Value Reference Range Interpretation [...] NUCLEATED RBCS (test code = 0.00 K/UL 15204) COMPREHENSIVE METABOLIC [id number] 00:00:00 Test Item Value Reference Range Interpretation Comments GLUCOSE (test code = 2217) 95 MG/DL BUN (test code = 2208) 9 MG/DL CREATININE (test code = 2214) 0.61 MG/DL eGFR (2020 CKD-EPI) (test 109 ML/MIN/1.73 code = 38227) CALC BUN/CREAT (test code = 15 RATIO [...] code = 2219) 15 U/L COMPREHENSIVE METABOLIC [id number] 00:00:00 Test Item Value Reference Range Interpretation Comments GLUCOSE (test code = 2217) 95 MG/DL BUN (test code = 2208) 9 MG/DL CREATININE (test code = 2214) 0.61 MG/DL eGFR (2020 CKD-EPI) (test 109 ML/MIN/1.73 code = 85184) CALC BUN/CREAT (test code = 15 RATIO [...] (test code = 2219) 15 U/L LIPID [id number] 00:00:00 Test Item Value Reference Range Interpretation Comments CHOLESTEROL (test code = 2210) 190 MG/DL TRIGLYCERIDES (test code = 2232) 217 MG/DL HDL CHOLESTEROL (test code = 2220) 46 MG/DL CALC LDL CHOL (test code = 2237) 110 MG/DL RISK RATIO LDL/HDL (test code = 2.39 RATIO 2238) LIPID [id number] 00:00:00 Test Item Value Reference Range Interpretation Comments CHOLESTEROL (test code = 2210) 190 MG/DL TRIGLYCERIDES (test code = 2232) 217 MG/DL HDL CHOLESTEROL (test code = 2220) 46 MG/DL CALC LDL CHOL (test code = 2237) 110 MG/DL RISK RATIO LDL/HDL (test code = 2.39 RATIO 2238) [id number] 00:00:00 Test Item Value Reference Range Interpretation Comments TSH, THIRD GENERATION (test code 1.820 UIU/ML = 2821) [id number] 00:00:00 Test Item Value Reference Range Interpretation Comments TSH, THIRD GENERATION (test code 1.820 UIU/ML = 2821) [id number] 00:00:00 Test Item Value Reference Range Interpretation Comments TSH, THIRD GENERATION (test code 1.820 UIU/ML = 2821) PAP TEST, THINPREP, [id number] 00:00:00 Test Item Value Reference Range Interpretation Comments SOURCE: (test code = A) Cervical/Endocervical 8001) SLIDES: (test code = 1 8011) LMP: (test code = 03/09/2016 8021) SPECIMEN ADEQUACY: (NOTE) (test code = 12647) INTERPRETATION: (test NO EPITHELIAL code = 42353) ABNORMALITY SEE BELOW OTHER COMMENTS: (test SEE BELOW code = 8081) LIBRARY PAGE: Vandana Phipps, (test code = 8101) CT(ASCP) QC TECHNOLOGIST: Martir Lynn (test code = 8111) WoodySCT(ASCP)IAC LOCATION: (test code (NOTE) = 63949) CPT: (test code = (NOTE) 8140) PAP TEST, THINPREP, [id number] 00:00:00 Test Item Value Reference Range Interpretation Comments SOURCE: (test code = A) Cervical/Endocervical 8001) SLIDES: (test code = 1 8011) LMP: (test code = 03/09/2016 8021) SPECIMEN ADEQUACY: (NOTE) (test code = 32447) INTERPRETATION: (test NO EPITHELIAL code = 64843) ABNORMALITY SEE BELOW OTHER COMMENTS: (test SEE BELOW code = 8081) LIBRARY PAGE: Vandana Phipps, (test code = 8101) CT(ASCP) QC TECHNOLOGIST: Martir Lynn (test code = 8111) Rice,SCT(ASCP)IAC LOCATION: (test code (NOTE) = 67643) CPT: (test code = (NOTE) 8140) PAP TEST, THINPREP, [id number] 00:00:00 Test Item Value Reference Range Interpretation Comments SOURCE: (test code = A) Cervical/Endocervical 8001) SLIDES: (test code = 1 8011) LMP: (test code = 03/09/2016 8021) SPECIMEN ADEQUACY: (NOTE) (test code = 83615) INTERPRETATION: (test NO EPITHELIAL code = 56514) ABNORMALITY SEE BELOW OTHER COMMENTS: (test SEE BELOW code = 8081) LIBRARY PAGE: Vandana Phipps, (test code = 8101) CT(ASCP) QC TECHNOLOGIST: Martir Lynn (test code = 8111) Woody,SCT(ASCP)IAC LOCATION: (test code (NOTE) = 19579) CPT: (test code = (NOTE) 8140) PAP TEST, THINPREP, [id number] 00:00:00 Test Item Value Reference Range Interpretation Comments SOURCE: (test code = A) Cervical/Endocervical 8001) SLIDES: (test code = 1 8011) LMP: (test code = 03/09/2016 8021) SPECIMEN ADEQUACY: (NOTE) (test code = 62226) INTERPRETATION: (test NO EPITHELIAL code = 85808) ABNORMALITY SEE BELOW OTHER COMMENTS: (test SEE BELOW code = 8081) LIBRARY PAGE: Vandana Phipps, (test code = 8101) CT(ASCP) QC TECHNOLOGIST: Martir Lynn (test code = 8111) Rice,SCT(ASCP)IAC LOCATION: (test code (NOTE) = 68279) CPT: (test code = (NOTE) 8140) PAP TEST, THINPREP, [id number] 00:00:00 Test Item Value Reference Range Interpretation Comments SOURCE: (test code = A) Cervical/Endocervical 8001) SLIDES: (test code = 1 8011) LMP: (test code = 03/09/2016 8021) SPECIMEN ADEQUACY: (NOTE) (test code = 58123) INTERPRETATION: (test NO EPITHELIAL code = 38477) ABNORMALITY SEE BELOW OTHER COMMENTS: (test SEE BELOW code = 8081) LIBRARY PAGE: Vandana Phipps, (test code = 8101) CT(ASCP) QC TECHNOLOGIST: Martir Lynn (test code = 8111) LILLIAN Mckay(ASCP)IAC LOCATION: (test code (NOTE) = 98083) CPT: (test code = (NOTE) 8140) PAP TEST, THINPREP, [id number] 00:00:00 Test Item Value Reference Range Interpretation Comments SOURCE: (test code = A) Cervical/Endocervical 8001) SLIDES: (test code = 1 8011) LMP: (test code = 03/09/2016 8021) SPECIMEN ADEQUACY: (NOTE) (test code = 25324) INTERPRETATION: (test NO EPITHELIAL code = 24958) ABNORMALITY SEE BELOW OTHER COMMENTS: (test SEE BELOW code = 8081) LIBRARY PAGE: Vandana Phipps, (test code = 8101) CT(ASCP) QC TECHNOLOGIST: Martir Lynn (test code = 8111) LILLIAN Mckay(ASCP)IAC LOCATION: (test code (NOTE) = 92088) CPT: (test code = (NOTE) 8140) HPV HIGH RISK WITH GENOTYPE, [id number] 00:00:00 Test Item Value Reference Range Interpretation Comments HPV HIGH RISK INTERP (test code = POSITIVE 45672) HPV 16 (test code = 33794) NEGATIVE HPV 18 (test code = 97112) NEGATIVE HPV, HR, OTHER GENOTYPES (test code POSITIVE = 56623) HPV HIGH RISK WITH GENOTYPE, [id number] 00:00:00 Test Item Value Reference Range Interpretation Comments HPV HIGH RISK INTERP (test code = POSITIVE 35646) HPV 16 (test code = 47063) NEGATIVE HPV 18 (test code = 08690) NEGATIVE HPV, HR, OTHER GENOTYPES (test code POSITIVE = 90567) HPV HIGH RISK WITH GENOTYPE, [id number] 00:00:00 Test Item Value Reference Range Interpretation Comments HPV HIGH RISK INTERP (test code = POSITIVE 47292) HPV 16 (test code = 97013) NEGATIVE HPV 18 (test code = 63364) NEGATIVE HPV, HR, OTHER GENOTYPES (test code POSITIVE = 00940) HPV HIGH RISK WITH GENOTYPE, [id number] 00:00:00 Test Item Value Reference Range Interpretation Comments HPV HIGH RISK INTERP (test code = POSITIVE 05638) HPV 16 (test code = 67339) NEGATIVE HPV 18 (test code = 31917) NEGATIVE HPV, HR, OTHER GENOTYPES (test code POSITIVE = 80988) HPV HIGH RISK WITH GENOTYPE, [id number] 00:00:00 Test Item Value Reference Range Interpretation Comments HPV HIGH RISK INTERP (test code = POSITIVE 94900) HPV 16 (test code = 23819) NEGATIVE HPV 18 (test code = 57189) NEGATIVE HPV, HR, OTHER GENOTYPES (test code POSITIVE = 67425) HPV HIGH RISK WITH GENOTYPE, [id number] 00:00:00 Test Item Value Reference Range Interpretation Comments HPV HIGH RISK INTERP (test code = POSITIVE 95252) HPV 16 (test code = 12175) NEGATIVE HPV 18 (test code = 28028) NEGATIVE HPV, HR, OTHER GENOTYPES (test code POSITIVE = 29225)
[2023-03-16] MEDS ORDERED: NA CHLORIDE 0.9% 1,000 ML ONE (08:43)
[2023-03-16] MEDS ORDERED: ONDANSETRON 4 MG/2 ML VIAL ONE (08:43)
[2023-03-16] MEDS ORDERED: MORPHINE 4 MG/ML SYR ONE (08:43)
[2023-03-16 08:49] LABS: Absolute Lymphocytes (CBC) 2.4 K/uL (0.7-4.9); Hematocrit 41.4 % (36.0-45.0); Lymphocytes % 17.1 % (15.3-44.8); MCV 92.1 fL (80-100); MPV 6.9 fL (7.6-11.3); RBC Red Blood Cell Count 4.49 M/uL (3.86-4.86)
[2023-03-16 08:54] LABS: Specific Gravity 1.019 (1.005-1.030); Urine Bacteria <20 /HPF (<20); Urine Bilirubin NEGATIVE (Negative); Urine Blood 3+ (Negative); Urine Clarity Clear (Clear); Urine Color Light-Yellow (Yellow); Urine Glucose NEGATIVE (Negative); Urine Mucus Slight /HPF (None Seen); Urine Protein NEGATIVE (Negative); Urine RBC 21-50 /HPF (None Seen); Urine Urobilinogen Normal (Normal); Urine pH 5.5 (5.0-7.0)
[2023-03-16 09:05] LABS: Albumin 3.5 g/dL (3.4-5.0); Bilirubin Total 0.3 mg/dL (0.2-1.0); Potassium 3.7 mEq/L (3.5-5.1); Protein, Total 7.2 g/dL (6.4-8.2)
--- NOTE | 2023-03-16 09:41 | RAD REPORT ---
EXAM DESCRIPTION: CT - Abdomen Pelvis W Contrast - 03/16/2023 9:27 am CLINICAL HISTORY: Abdominal pain COMPARISON: none. TECHNIQUE: Computed axial tomography of the abdomen pelvis was obtained. 100 cc Isovue-300 was admin istered intravenously. Oral contrast was not requested which limits evaluation of bowel and appendix All CT scans are performed using dose optimization technique as appropriate and may include automated exposure control or mA/KV adjustment according to patient size. FINDINGS: The liver, spleen, pancreas, adrenal and kidneys appear unremarkable. Diverticula stem from the colon including the cecum. Moderate stranding within adjacent fat with a sm all amount of ill-defined fluid. No free air. No abscess The appendix appears normal. . IMPRESSION: Moderate cecal diverticulitis
[2023-03-16] MEDS ORDERED: METRONIDAZOLE 500mg IVPB 500 MG/100 ML BAG IV ONE (10:49)
[2023-03-16] MEDS ORDERED: CIPROFLOXACIN 400mg IV 400 MG/200 ML BAG IV ONE (10:49)
--- NOTE | 2023-03-16 11:05 | EDPHYS ---
Physician Documentation [facility] Name: Carolina Rivera Age: 52 yrs Sex: Female : 1970 Arrival Date: 03/16/2023 Time: 08:02 Bed 16 Private MD: ED Physician Abdi Patricia HPI: 03/16 10:39 This 52 yrs old Female presents to ER via Ambulatory with complaints of rn Abdominal Pain. 10:39 The patient presents with abdominal pain in the lower abdomen. rn 10:40 Onset: The symptoms/episode began/occurred 3 day(s) ago. The symptoms do not radiate. rn Associated signs and symptoms: Pertinent negatives: nausea and vomiting, blood in stools, chest pain, constipation, diarrhea, fever. The symptoms are described as intermittent, sharp. Modifying factors: The symptoms are alleviated by nothing, the symptoms are aggravated by touching the area. Severity of pain: At its worst the pain was mild in the emergency department the pain is unchanged. The patient has not experienced similar symptoms in the past. The patient has been recently seen by a physician:. Seen by pcp recently for lower abd pain, put on abx for UTI, presents with increased lower abd pain. No fever. No vomiting. . 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 - Hospitalizations: : No recent hospitalization is reported. ROS: 10:40 Constitutional: Negative for fever, chills, and weight loss, Cardiovascular: Negative rn for chest pain, palpitations, and edema, Respiratory: Negative for shortness of breath, cough, wheezing, and pleuritic chest pain, Abdomen/GI: + abd pain Back: Negative for injury and pain, MS/Extremity: Negative for injury and deformity, Skin: Negative for injury, rash, and discoloration, Neuro: Negative for headache, weakness, numbness, tingling, and seizure. Exam: 10:40 Constitutional: This is a well developed, well nourished patient who is awake, alert, rn and in no acute distress. Head/Face: Normocephalic, atraumatic. Cardiovascular: Regular rate and rhythm. No pulse deficits. Respiratory: No increased work of breathing, no retractions or nasal flaring. Abdomen/GI: soft, + mild suprapubic and LLQ tenderness Skin: Warm, dry MS/ Extremity: Pulses equal, no cyanosis. Neuro: Awake and alert, GCS 15 Vital Signs: 08:25 BP 101 / 90; Pulse 114; Resp 15; Temp 97.9(TE); Pulse Ox 98% on R/A; Weight 66.68 kg; ss Height 5 ft. 4 in. ; Pain 5/10; 09:46 BP 115 / 72; Pulse 80; Resp 18 S; Pulse Ox 100% on R/A; Pain 4/10; kc6 10:35 BP 128 / 63; Pulse 78; Resp 16 S; Pulse Ox 99% on R/A; kc6 11:39 BP 106 / 69; Pulse 75; Resp 18 S; Pulse Ox 100% on R/A; kc6 08:25 Body Mass Index 25.23 (66.68 kg, 162.56 cm) ss 08:25 Pain Scale: Adult ss 09:46 Pain Scale: Adult kc6 MDM: 08:07 Patient medically screened. rn 10:59 Differential diagnosis: appendicitis, bowel obstruction, diverticulitis, non-specific rn abd pain, Ureterolithiasis, urinary tract infection. Data reviewed: vital signs, nurses notes, lab test result(s), radiologic studies, CT scan, and as a result, I will discharge patient. Counseling: I had a detailed discussion with the patient and/or guardian regarding: the historical points, exam findings, and any diagnostic results supporting the discharge/admit diagnosis, lab results, radiology results, the need for outpatient follow up, to return to the emergency department if symptoms worsen or persist or if there are any questions or concerns that arise at home. Special discussion: Based on the patient's Hx, exam, and Dx evaluation, there is no indication for emergent surgery or inpatient Tx. It is understood by the patient/guardian that if the Sx's persist or worsen they need to return immediately for re-evaluation. I discussed with the patient/guardian in detail that at this point there is no indication for admission to the hospital. It is understood, however, that if the symptoms persist or worsen the patient needs to return immediately for re-evaluation. ED course: Pt with acute diverticulitis, no perforation, no peritoneal signs on exam. Will dc home with abx and given strict return precautions. 03/16 08:26 Order name: CBC with Diff; Complete Time: 10:00 rn 03/16 08:26 Order name: CMP; Complete Time: 10:00 rn 03/16 08:26 Order name: Lipase; Complete Time: 10:00 rn 03/16 08:26 Order name: Urinalysis w/ reflexes; Complete Time: 10:00 rn 03/16 08:26 Order name: CT Abd/Pelvis - IV Contrast Only; Complete Time: 10:00 rn 03/16 08:26 Order name: IV Saline Lock; Complete Time: 08:44 rn 03/16 08:26 Order name: Labs collected and sent; Complete Time: 08:44 rn Administered Medications: 08:44 Drug: NS 0.9% IV 1000 ml Route: IV; Rate: 1 bolus; Site: right antecubital; kc6 09:45 Follow up: Response: No adverse reaction; IV Status: Completed infusion; IV Intake: kc6 1000ml 08:44 Drug: Ondansetron IVP 4 mg Route: IVP; Site: right antecubital; kc6 09:45 Follow up: Response: No adverse reaction kc6 08:44 Drug: morphine IVP or IV 4 mg Route: IVP; Infused Over: 4 mins; Site: right antecubital;kc6 09:45 Follow up: Response: No adverse reaction; Pain is decreased; RASS: Alert and Calm (0) kc6 10:49 Drug: metroNIDAZOLE IVPB 500 mg Volume: 100 ml; Route: IVPB; Rate: 200 ml/hr; Infused kc6 Over: 30 mins; Site: right antecubital; 11:49 Follow up: Response: No adverse reaction; IV Status: Completed infusion; IV Intake: kc6 100ml 11:37 Drug: Ciprofloxacin IVPB 400 mg Volume: 200 ml; Route: IVPB; Infused Over: 60 mins; kc6 Site: right antecubital; 12:44 Follow up: IV Status: Completed infusion; IV Intake: 200ml ll1 Disposition Summary: 03/16/23 11:04 Discharge Ordered Location: Home rn Problem: new rn Symptoms: have improved rn Condition: Stable rn Diagnosis - Diverticulitis of large intestine without perforation or abscess without bleeding rn Followup: rn - With: Private Physician - When: As needed - Reason: Recheck today's complaints, Re-evaluation by your physician Discharge Instructions: - Discharge Summary Sheet rn - High-Fiber Eating Plan rn - Diverticulitis rn Forms: - Medication Reconciliation Form rn - Thank You Letter rn - Antibiotic rn disease management - Prescription Opioid Use rn - Work release form kc6 Prescriptions: - ondansetron 4 mg Oral Tablet,disintegrating - take 1 tablet by ORAL route every 8-10 hours As needed as needed for nausea and rn vomiting; 15 tablet; Refills: 0, Product Selection Permitted - Flagyl 500 mg Oral Tablet - take 1 tablet by ORAL route every 8 hours for 10 days; 30 tablet; Refills: 0, rn Product Selection Permitted - Cipro 500 mg Oral Tablet - take 1 tablet by ORAL route every 12 hours for 10 days; 20 tablet; Refills: 0, rn Product Selection Permitted - Tramadol 50 mg Oral Tablet - take 1 tablet by ORAL route every 8 hours as needed; 12 tablet; Refills: 0, rn Product Selection Permitted Signatures: Dispatcher [employer] Abdi Godoy MD MD rn Smirch, Shelby, RN RN Inga Johns RN RN kc6 Carolyn Guerrero RN 1
--- NOTE | 2023-03-16 11:05 | ER ---
Nurse's Notes [facility] Name: Carolina Rivera Age: 52 yrs Sex: Female : 1970 Arrival Date: 03/16/2023 Time: 08:02 Bed 16 Private MD: Diagnosis: Diverticulitis of large intestine without perforation or abscess without bleeding Presentation: 03/16 08:23 Chief complaint: Patient states: abd pain that began Tuesday. Denies N/V/D. Pt was ss recently prescribed abx by PCP for urine infection. Coronavirus screen: Client denies travel out of the [place] in the last 14 days. Ebola Screen: Patient denies exposure to infectious person. Patient denies travel to an Ebola-affected area in the 21 days before illness onset. Initial Sepsis Screen: Does the patient meet any 2 criteria? No. Patient's initial sepsis screen is negative. Does the patient have a suspected source of infection? No. Patient's initial sepsis screen is negative. Risk Assessment: Do you want to hurt yourself or someone else? Patient reports no desire to harm self or others. Onset of symptoms was February 2023. 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 - Hospitalizations: : No recent hospitalization is reported. Screenin:48 [facility] ED Fall Risk Assessment (Adult) History of falling in the last 3 months, kc6 including since admission No falls in past 3 months (0 pts) Confusion or Disorientation No (0 pts) Intoxicated or Sedated No (0 pts) Impaired Gait No (0 pts) Mobility Assist Device Used No (0 pt) Altered Elimination No (0 pt) Score/Fall Risk Level 0 - 2 = Low Risk Oriented to surroundings, Maintained a safe environment, Educated pt \T\ family on fall prevention, incl call for assistance when getting out of bed, Assessed \T\ reinforced patient's understanding of fall precautions, Hourly rounding (assess needs \T\ fall precautionary measures) done. Abuse screen: Denies threats or abuse. Denies injuries from another. Nutritional screening: No deficits noted. Tuberculosis screening: No symptoms or risk factors identified. Assessment: 08:47 General: Appears in no apparent distress. comfortable, Behavior is calm, cooperative, kc6 appropriate for age. Pain: Complains of pain in abdomen Pain does not radiate. Pain currently is 6 out of 10 on a pain scale. Quality of pain is described as crampy, Is intermittent. Neuro: [place] Agitation-Sedation Scale (RASS): 0 - Alert and Calm Level of Consciousness is awake, alert, obeys commands, Oriented to person, place, time, situation, Appropriate for age. Cardiovascular: Capillary refill < 3 seconds. Respiratory: Airway is patent Trachea midline Respiratory effort is even, unlabored, Respiratory pattern is regular, symmetrical. GI: Abdomen is flat, non-distended, Bowel sounds present X 4 quads. Abd is soft X 4 quads Abdomen is tender to palpation X 4 quads. Patient currently denies diarrhea, nausea, vomiting. EENT: No signs and/or symptoms were reported regarding the EENT system. Derm: No signs and/or symptoms reported regarding the dermatologic system. Skin is intact, Skin is pink, warm \T\ dry. Musculoskeletal: No signs and/or symptoms reported regarding the musculoskeletal system. Circulation, motion, and sensation intact. Capillary refill < 3 seconds, Range of motion: intact in all extremities. 09:46 Reassessment: Patient appears in no apparent distress at this time. No changes from kc6 previously documented assessment. Patient and/or family updated on plan of care and expected duration. Pain level reassessed. Patient is alert, oriented x 3, equal unlabored respirations, skin warm/dry/pink. 10:35 Reassessment: Patient appears in no apparent distress at this time. No changes from kc6 previously documented assessment. Patient and/or family updated on plan of care and expected duration. Pain level reassessed. Patient is alert, oriented x 3, equal unlabored respirations, skin warm/dry/pink. 11:04 Reassessment: d/c pending IV antibiotic completion. kc6 11:35 Reassessment: Patient appears in no apparent distress at this time. No changes from kc6 previously documented assessment. Patient and/or family updated on plan of care and expected duration. Pain level reassessed. Patient is alert, oriented x 3, equal unlabored respirations, skin warm/dry/pink. Vital Signs: 08:25 BP 101 / 90; Pulse 114; Resp 15; Temp 97.9(TE); Pulse Ox 98% on R/A; Weight 66.68 kg; ss Height 5 ft. 4 in. ; Pain 5/10; 09:46 BP 115 / 72; Pulse 80; Resp 18 S; Pulse Ox 100% on R/A; Pain 4/10; kc6 10:35 BP 128 / 63; Pulse 78; Resp 16 S; Pulse Ox 99% on R/A; kc6 11:39 BP 106 / 69; Pulse 75; Resp 18 S; Pulse Ox 100% on R/A; kc6 08:25 Body Mass Index 25.23 (66.68 kg, 162.56 cm) ss 08:25 Pain Scale: Adult ss 09:46 Pain Scale: Adult kc6 ED Course: 08:06 Patient arrived in ED. mr 08:06 Abdi Patricia MD is Attending Physician. rn 08:23 Arm band placed on right wrist. ss 08:25 Triage completed. ss 08:31 Inga Smith RN is Primary Nurse. kc6 08:45 Inserted saline lock: 22 gauge in right antecubital area, using aseptic technique. ll1 Blood collected. 08:48 Patient has correct armband on for positive identification. Placed in gown. Bed in low kc6 position. Call light in reach. Side rails up X 1. 09:28 CT Abd/Pelvis - IV Contrast Only In Process Unspecified. EDMS 13:05 No provider procedures requiring assistance completed. IV discontinued, intact, kc6 bleeding controlled, No redness/swelling at site. Pressure dressing applied. Administered Medications: 08:44 Drug: NS 0.9% IV 1000 ml Route: IV; Rate: 1 bolus; Site: right antecubital; kc6 09:45 Follow up: Response: No adverse reaction; IV Status: Completed infusion; IV Intake: kc6 1000ml 08:44 Drug: Ondansetron IVP 4 mg Route: IVP; Site: right antecubital; kc6 09:45 Follow up: Response: No adverse reaction kc6 08:44 Drug: morphine IVP or IV 4 mg Route: IVP; Infused Over: 4 mins; Site: right antecubital;kc6 09:45 Follow up: Response: No adverse reaction; Pain is decreased; RASS: Alert and Calm (0) kc6 10:49 Drug: metroNIDAZOLE IVPB 500 mg Volume: 100 ml; Route: IVPB; Rate: 200 ml/hr; Infused kc6 Over: 30 mins; Site: right antecubital; 11:49 Follow up: Response: No adverse reaction; IV Status: Completed infusion; IV Intake: kc6 100ml 11:37 Drug: Ciprofloxacin IVPB 400 mg Volume: 200 ml; Route: IVPB; Infused Over: 60 mins; kc6 Site: right antecubital; 12:44 Follow up: IV Status: Completed infusion; IV Intake: 200ml ll1 Medication: 13:05 VIS not applicable for this client. kc6 Intake: 09:45 IV: 1000ml; Total: 1000ml. kc6 11:49 IV: 100ml; Total: 1100ml. kc6 12:44 IV: 200ml; Total: 1300ml. ll1 Outcome: 11:04 Discharge ordered by . rn 13:05 Discharged to home ambulatory. kc6 13:05 Condition: stable 13:05 Discharge instructions given to patient, Instructed on discharge instructions, follow up and referral plans. medication usage, Demonstrated understanding of instructions, follow-up care, medications, Prescriptions given X 4. 13:05 Patient left the ED. kc6 Signatures: Dispatcher [employer] [facility] Ary BenzAbdi MD MD rn Smirch, Shelby, RN RN ss Lewis, Lynsay, RN RN ll1 Inga Smith RN RN kc6 Corrections: (The following items were deleted from the chart) 11:19 11:18 Reassessment: d/c pending IV antibiotic completion kc6 kc6
[2023-03-16 14:22] VITALS: TEMP 97.9
[2023-03-16 14:28] VITALS: BP 106/69; O2SAT 100
== END 2023-03-16 13:05 | disposition home or self-care (01) ==
LOC: ER 08:02
DX: K57.32 Diverticulitis of large intestine without perforation or abscess without bleeding (principal); Z88.0 Allergy status to penicillin
CPT/HCPCS: 96365; 96361; 85025; 81001; 36415; 83690; 80053; 74177; 96375; 99284; Q9967; J2405; J0744; J7030

== ENCOUNTER 2023-09-22 12:53 | Emergency (ER) | payer OTHER ==
--- OUTSIDE RECORDS SUMMARY | 2023-09-22 12:57 | XMS REPORT | Continuity of Care Document ---
:1970 Author Organization [facility] t Address [address] [facility] [address]. [address] [place] [address] Care Team Providers Name Role Phone Maria De Jesus MARISCAL, Marleni Primary Care Physician [phone] CARSON [place] Attending Clinician Unavailable Pranav Peña MD Attending Clinician Payers Payer Name Policy Type Policy Number Effective Date Expiration Date S [facility] [id number] 2019 00:00:00 Problems This patient has no known problems. Allergies, Adverse Reactions, Alerts Allergy Allergy Status Severity Reaction(s) Onset Inactive Treating Comm ents Source Name Type Date Date Clinician Penicill Propensi Active 2021-11 ins - ty to 0-03 CLASS adverse 00:00: reaction 00 to drug PENICILL DRUG Active [facility] IN INGREDI 2-27 ity of 00:00: [address] Penicill Propensi Active ins ty to 5-03 adverse 00:00: reaction 00 to drug NO KNOWN Drug Active Univers ALLERGIE Class ity of S [facility] Medications Ordered Filled Start Stop Current [...] 12 Leads W/ I r 2022-03-04 00:00:00 68705 - Removal Of Impacted Cerumen 2021-02-11 00:00:00 Using Irrigation/lavage Plan of Care Planned Activity Planned Date Details Comments Source Goal Plan of Care Note [code = 08557-0] Goal Plan of Care Note [code = 53252-7] Goal Plan of Care Note [code = 74915-2] Goal Plan of Care Note [code = 12041-0] Goal Plan of Care Note [code = 72207-5] Goal Plan of Care Note [code = 94584-7] Goal Plan of Care Note [code = 49736-9] Goal Plan of Care Note [code = 80842-9] Goal Plan of Care Note [code = 39350-4] Goal Plan of Care Note [code = 01585-0] Goal Plan of Care Note [code = 93999-3] Goal Plan of Care Note [code = 26612-1] Goal Plan of Care Note [code = 90229-9] Goal Plan of Care Note [code = 14959-4] Goal Plan of Care Note [code = 65699-8] Goal Plan of Care Note [code = 87020-2] Goal Plan of Care Note [code = 97902-1] Goal Plan of Care Note [code = 41985-8] Goal Plan of Care Note [code = 53832-1] Goal Plan of Care Note [code = 94631-8] Goal Plan of Care Note [code = 14543-5] Goal Plan of Care Note [code = 30313-5] Goal Plan of Care Note [code = 39796-2] Goal Plan of Care Note [code = 02969-0] Goal Plan of Care Note [code = 78248-0] Goal Plan of Care Note [code = 72574-0] Goal Plan of Care Note [code = 28592-0] Goal Plan of Care Note [code = 12652-7] Goal Plan of Care Note [code = 88542-4] Goal Plan of Care Note [code = 44530-0] Goal Plan of Care Note [code = 53170-6] Goal Plan of Care Note [code = 43756-3] Goal Plan of Care Note [code = 60297-7] Goal Plan of Care Note [code = 47144-0] Goal Plan of Care Note [code = 09813-5] Goal Plan of Care Note [code = 70780-2] Goal Plan of Care Note [code = 76246-6] Goal Plan of Care Note [code = 11652-3] Goal Plan of Care Note [code = 64350-7] Goal Plan of Care Note [code = 36942-5] Goal Plan of Care Note [code = 36629-5] Goal Plan of Care Note [code = 68463-5] Goal Plan of Care Note [code = 07267-3] Goal Plan of Care Note [code = 94978-2] Encounters Start End Encounter Admission Attending Care Care Encounter Source Date/Time Date/Time Type Type Clinicians Facility Department ID 2023-08-26 2023-08-26 Outpatient SFA SFA [id number] [place] 16:24:58 16:24:58 1006 [facility] [place] 2023-08-02 2023-08-02 Outpatient SFA SFA [id number] [place] 16:10:14 16:10:14 0912 [facility] [place] 2023-06-08 2023-06-08 Outpatient SFA SFA [id number] [place] 16:04:47 16:04:47 0719 [facility] [place] 2023-04-28 2023-04-28 Outpatient SFA SFA [id number] 023 [place] 16:01:32 16:01:32 0608 [facility] [place] 2023-04-27 2023-04-27 Outpatient SFA SFA [id number] [place] 16:42:39 16:42:39 0607 [facility] [place] 2023-03-23 2023-03-23 Outpatient SFA SFA [id number] 023 [place] 15:53:42 15:53:42 0503 [facility] [place] 2023-03-14 2023-03-14 Outpatient SFA SFA [id number] 023 [place] 08:28:39 08:28:39 0424 [facility] [place] 2023-01-12 2023-01-12 Outpatient SFA SFA [id number] 023 [place] 14:23:24 14:23:24 022 [facility] 2023-01-10 2023-01-10 Outpatient SFA SFA [id number] [place] 09:29:30 09:29:30 0220 [facility] [place] 2023-01-07 2023-01-07 Outpatient SFA SFA [id number] 023 [place] 15:27:00 15:27:00 0217 [facility] [place] 2022-11-09 2022-11-09 Outpatient SFA SFA [id number] 022 [place] 16:26:02 16:26:02 1220 [facility] [place] 2022-10-012022-10-01 Outpatient SFA SFA [id number] 022 [place] 16:35:49 16:35:49 1111 [facility] [place] 2022-10-01 2022-10-01 Outpatient [id number] 84l259-v 00:00:00 00:00:00 Visit e184-22qo 562-48ca-b -d8w5-b60 6x3-f6270c 19n6f52y4 2c04b2 2022-08-26 2022-08-26 Outpatient SFA SFA [id number] 022 [place] 16:08:31 16:08:31 1006 [facility] [place] 2022-08-26 2022-08-26 Outpatient [id number]- [id number] vmq5i2-5 00:00:00 00:00:00 Visit 1q9k-18ee f6n-69iz-y -bca2-802 ca2-802dfc exm533c4t 035a2d 2022-08-24 2022-08-24 Outpatient SFA SFA [id number] 022 [place] 09:21:51 09:21:51 1004 [facility] [place] 2022-08-23 2022-08-23 Outpatient SFA SFA [id number] 022 [place] 15:41:04 15:41:04 1003 [facility] [place] 2022-08-23 2022-08-23 Outpatient [id number]- [id number] 1etb61-1 00:00:00 00:00:00 Visit 6313-41b4 313-41b4-b -bx49-459 g07-605vn7 hk15r4dn9 3e8bb3 2021-06-08 2021-06-08 Emergency X [place], [facility] ERT [id number] Univers 18:35:00 18:35:00 [facility] 2020-01-17 2020-01-17 Emergency Peña, [facility] [id number] 10:08:04 10:53:00 Pranav Diana [id number] [place] 4.2.7.2.686 [place] [id number] 2020-01-17 2020-01-17 Emergency X [facility] ERT [id number] Univers 09:56:00 09:56:00 [facility] Results Test Description Test Time Test Comments Results Result Comments Source CULTURE, URINE 2023-03-18 SPECIMEN NUMBER: 14:23:45 [id number] CULTURE, URINE SPECIMEN NUMBER: [id number] SPECIMEN COMMENT: URINE SOURCE: URINE REPORT STATUS: FINAL ISOLATE NUMBER 1: ORGANISM: 03/16/2023 50-100,000 CFU/ML GRAM NEGATIVE BACILLI IDENTIFICATION: 03/18/2023 ESCHERICHIA COLI E. COLI AMOX ICILLIN/CA SENSITIVE <=8/4AMPICILLIN RESISTANT >16CEFAZOLIN SENSITIVE 4CEFTRIAXONE SENSITIVE <=1CIPROFLOXACIN RESISTANT >2LEVOFLOXACIN RESISTANT >4NITROFURANTOIN SENSITIVE <=32PIP/TAZOBAC SENSITIVE <=16TETRACYCLINE SENSITIVE <=4TOBRAMYCIN SENSITIVE <=4TRIMETH/SULFA SENSITIVE <=2/38 NOTE: NUMBERS DISPLAYED REPRESENT MINIMUM INHIBITORY CONCENTRATION (LUIS) WHICH IS EXPRESSED IN MCG/ML. [facility] has important pathology staff changes effective 01/19/2023. New pathology staff will provide uninterrupted, excellent patient care and clinical consultation. See URL: [email or web address]. UNLESS OTHERWISE INDICATED, ALL TESTING PERFORMED AT [facility] [address] [place] [address] NEWBORN PHOTOGRAPHER: ESTEVAN ZELAYA M.D. CLIA NUMBER [id number] [facility] [place]. [id number] HEMOGLOBIN A1c 2023-01-13 02:47:15 Test Item Value Reference Range Interpretation Comme nts HEMOGLOBIN A1c (test 6.1 % 4.2-5.6 H [employer] GUIDELINES FOR code = 59906) HGB A1C: PREDI ABETES/INCREASED RISK . . [...] ALTERN ATE TESTING OR LABORATORY CONSULTATION. * [facility] has important pathology staff changes e ffective 01/19/2023. New pathology staff will provide uninterrupted, excellent patie nt care and clinical consultation. S ee URL: [email or web address]. UNLESS OTHERWISE INDIC ATED, ALL TESTING PERFORMED AT [facility]. [address] [place] [address] NEWBORN PHOTOGRAPHER: KHUSHBU REYNA M.D. CLIA NUMBER [id number] [place] [id number] VITAMIN [id number] 03:08:37 Test Item Value Reference Range Interpretation Comments VITAMIN B-12 (test 357 PG/ML 200-950 [facility] has important code = 2840) pathology staff changes effective 01/19. New patholo gy staff will provide uninterrupted, excellent patie nt care and clinical consultation. S ee URL: [email or web address]. UNLESS OTHERWISE INDIC ATED, ALL TESTING PER FORMED AT CLINICAL [facility] [employer], [facility]. [address] [place] [address] CLIA: [id number], CAP: VITAMIN D, 25 [id number] 03:08:06 Test Item Value Reference Range Interpretation Comments VITAMIN D, 25 20 NG/ML SEE BELOW L EFFECTIVE 11/29/2022, [place] (test code PLEASE NOTE NE W METHODOLOGY = 4958) IS ELECTROCH EMILUMINESCENCE BINDING ASSAY. NOTE: 25-HYDROXYVITAM IN D ASSAY INCLUDES 25-HYD ROXYVITAMIN D2 AND D3. INTERPRETIVE RANGES PED IATRIC (<17 YEARS) . . [...] . . . NG/ML 30-100 COMPREHENSIVE METABOLIC [id number] 01:53:57 Test Item Value Reference Range Interpretation Comments GLUCOSE (test code = 106 MG/DL 70-99 H 2216) BUN (test code = 11 MG/DL -2207) CREATININE (test 0.71 MG/DL 0.60-1.30 code = 221) eGFR (2020 CKD-EPI) 103 >60 (test code = 31320) ML/MIN/1.73 CALC BUN/CREAT (test 15 RATIO 6-28 code = 2235) SODIUM (test code = 139 MEQ/L 665-101 5559) POTASSIUM (test code 4.7 MEQ/L 3.5-5.4 = 2227) CHLORIDE (test code 103 MEQ/L 95-107 = 2214) CARBON DIOXIDE (test 24 MEQ/L 19-31 code = 2205) CALCIUM (test code = 9.6 MG/DL 8.5-10.5 2208) PROTEIN, TOTAL (test 6.7 G/DL 6.1-8.3 code = 2228) ALBUMIN (test code = 4.4 G/DL 3.5-5.2 2200) CALC GLOBULIN (test 2.3 G/DL 1.9-3.7 code = 2239) CALC A/G RATIO (test 1.9 RATIO 1.0-2.6 code = 2233) BILIRUBIN, TOTAL <0.2 MG/DL See_Comment [Automated message] (test code = 220) The syste m which generated this result transmit selvni reference range : <=1.2. The refe rence range was not u sed to interpret th is result as normal/abnormal . ALKALINE PHOSPHATASE 109 U/L 40-130 (test code = 220) AST (test code = 14 U/L 9-40 2217) ALT (test code = 13 U/L 5-40 2218) LIPID [id number] 01:53:57 Test Item Value Reference Range Interpretation [...] MOREINFORMATION , SEE CLIENT ANNOUNCE MENT AT [email or web address] RISK RATIO LDL/HDL 2.26 RATIO <3.22 (test code = 2238) CBC W/AUTO DIFF WITH [id number] 03:53:28 Test Item Value Reference Range Interpretation [...] RBCS 0.00 K/UL 0.00-0.11 (test code = 00614) TSH, THIRD [id number] 05:03:02 Test Item Value Reference Range Interpretation Comments TSH, THIRD 1.820 UIU/ML 0.400-4.100 UNLESS OTHERWI SE GENERATION (test INDICATED, ALL TESTING code = 2821) PERFORMED [facility], [facility]. [address] [place], [place] [id number] [place] [address] JANE DIRECTOR: KHUSHBU BENJAMIN M.D. CLIA NUMBER [id number] CAP ACCREDITATION N O. [id number] COMPREHENSIVE METABOLIC [id number] 04:36:14 Test Item Value Reference Range Interpretation Comments GLUCOSE (test code = 95 MG/DL 70-99 2216) BUN (test code = 9 MG/DL 6-20 2207) CREATININE (test 0.61 MG/DL 0.60-1.30 code = 2214) eGFR (2020 CKD-EPI) 109 >60 (test code = 41828) ML/MIN/1.73 CALC BUN/CREAT (test 15 RATIO 6-28 code = 2235) SODIUM (test code = 139 MEQ/L 454-048 4226) POTASSIUM (test code 4.4 MEQ/L 3.5-5.4 = 2227) CHLORIDE (test code 103 MEQ/L 95-107 = 2215) CARBON DIOXIDE (test 23 MEQ/L 19-31 code [...] code = 15 U/L 5-40 2218) LIPID [id number] 04:36:14 Test Item Value Reference Range Interpretation [...] MOREINFORMATION , SEE CLIENT ANNOUNCE MENT AT [email or web address] [email or web address] RATIO LDL/HDL 2.39 RATIO <3.22 (test code = 2238) CBC W/AUTO DIFF WITH [id number] 03:33:13 Test Item Value Reference Range Interpretation [...] RBCS 0.00 K/UL 0.00-0.11 (test code = 70094) CBC W/AUTO [id number] 00:00:00 Test Item Value Reference Range Interpretation [...] NUCLEATED RBCS (test code = 0.00 K/UL 32978) CBC W/AUTO [id number] 00:00:00 Test Item Value Reference Range Interpretation [...] NUCLEATED RBCS (test code = 0.00 K/UL 85127) CBC W/AUTO [id number] 00:00:00 Test Item Value Reference Range Interpretation [...] NUCLEATED RBCS (test code = 0.00 K/UL 96970) COMPREHENSIVE METABOLIC [id number] 00:00:00 Test Item Value Reference Range Interpretation Comments GLUCOSE (test code = 2217) 95 MG/DL BUN (test code = 2208) 9 MG/DL CREATININE (test code = 2214) 0.61 MG/DL eGFR (2020 CKD-EPI) (test 109 ML/MIN/1.73 code = 46510) CALC BUN/CREAT (test code = 15 RATIO [...] code = 2219) 15 U/L COMPREHENSIVE METABOLIC [id number] 00:00:00 Test Item Value Reference Range Interpretation Comments GLUCOSE (test code = 2217) 95 MG/DL BUN (test code = 2208) 9 MG/DL CREATININE (test code = 2214) 0.61 MG/DL eGFR (2020 CKD-EPI) (test 109 ML/MIN/1.73 code = 89870) CALC BUN/CREAT (test code = 15 RATIO [...] (test code = 2219) 15 U/L LIPID [id number] 00:00:00 Test Item Value Reference Range Interpretation Comments CHOLESTEROL (test code = 2210) 190 MG/DL TRIGLYCERIDES (test code = 2232) 217 MG/DL HDL CHOLESTEROL (test code = 2220) 46 MG/DL CALC LDL CHOL (test code = 2237) 110 MG/DL RISK RATIO LDL/HDL (test code = 2.39 RATIO 2238) LIPID [id number] 00:00:00 Test Item Value Reference Range Interpretation Comments CHOLESTEROL (test code = 2210) 190 MG/DL TRIGLYCERIDES (test code = 2232) 217 MG/DL HDL CHOLESTEROL (test code = 2220) 46 MG/DL CALC LDL CHOL (test code = 2237) 110 MG/DL RISK RATIO LDL/HDL (test code = 2.39 RATIO 2238) [id number] 00:00:00 Test Item Value Reference Range Interpretation Comments TSH, THIRD GENERATION (test code 1.820 UIU/ML = 2821) [id number] 00:00:00 Test Item Value Reference Range Interpretation Comments TSH, THIRD GENERATION (test code 1.820 UIU/ML = 2821) [id number] 00:00:00 Test Item Value Reference Range Interpretation Comments TSH, THIRD GENERATION (test code 1.820 UIU/ML = 2821) CBC W/AUTO [id number] 00:00:00 Test Item Value Reference Range Interpretation [...] NUCLEATED RBCS (test code = 0.00 K/UL 55366) CBC W/AUTO [id number] 00:00:00 Test Item Value Reference Range Interpretation [...] NUCLEATED RBCS (test code = 0.00 K/UL 17592) CBC W/AUTO [id number] 00:00:00 Test Item Value Reference Range Interpretation [...] NUCLEATED RBCS (test code = 0.00 K/UL 43687) COMPREHENSIVE METABOLIC [id number] 00:00:00 Test Item Value Reference Range Interpretation Comments GLUCOSE (test code = 2217) 95 MG/DL BUN (test code = 2208) 9 MG/DL CREATININE (test code = 2214) 0.61 MG/DL eGFR (2020 CKD-EPI) (test 109 ML/MIN/1.73 code = 98808) CALC BUN/CREAT (test code = 15 RATIO [...] BILIRUBIN, TOTAL (test code = 0.3 MG/DL 220) ALKALINE PHOSPHATASE (test 97 U/L code = 2204) AST (test code = 2218) 13 U/L ALT (test code = 2219) 15 U/L COMPREHENSIVE METABOLIC [id number] 00:00:00 Test Item Value Reference Range Interpretation Comments GLUCOSE (test code = 2217) 95 MG/DL BUN (test code = 2208) 9 MG/DL CREATININE (test code = 2214) 0.61 MG/DL eGFR (2020 CKD-EPI) (test 109 ML/MIN/1.73 code = 09651) CALC BUN/CREAT (test code = 15 RATIO [...] (test code = 2219) 15 U/L LIPID [id number] 00:00:00 Test Item Value Reference Range Interpretation Comments CHOLESTEROL (test code = 2210) 190 MG/DL TRIGLYCERIDES (test code = 2232) 217 MG/DL HDL CHOLESTEROL (test code = 2220) 46 MG/DL CALC LDL CHOL (test code = 2237) 110 MG/DL RISK RATIO LDL/HDL (test code = 2.39 RATIO 2238) LIPID [id number] 00:00:00 Test Item Value Reference Range Interpretation Comments CHOLESTEROL (test code = 2210) 190 MG/DL TRIGLYCERIDES (test code = 2232) 217 MG/DL HDL CHOLESTEROL (test code = 2220) 46 MG/DL CALC LDL CHOL (test code = 2237) 110 MG/DL RISK RATIO LDL/HDL (test code = 2.39 RATIO 2238) [id number] 00:00:00 Test Item Value Reference Range Interpretation Comments TSH, THIRD GENERATION (test code 1.820 UIU/ML = 2821) [id number] 00:00:00 Test Item Value Reference Range Interpretation Comments TSH, THIRD GENERATION (test code 1.820 UIU/ML = 2821) [id number] 00:00:00 Test Item Value Reference Range Interpretation Comments TSH, THIRD GENERATION (test code 1.820 UIU/ML = 2821) CBC W/AUTO [id number] 00:00:00 Test Item Value Reference Range Interpretation [...] NUCLEATED RBCS (test code = 0.00 K/UL 57103) CBC W/AUTO [id number] 00:00:00 Test Item Value Reference Range Interpretation [...] NUCLEATED RBCS (test code = 0.00 K/UL 39716) CBC W/AUTO [id number] 00:00:00 Test Item Value Reference Range Interpretation [...] NUCLEATED RBCS (test code = 0.00 K/UL 29540) COMPREHENSIVE METABOLIC [id number] 00:00:00 Test Item Value Reference Range Interpretation Comments GLUCOSE (test code = 2217) 95 MG/DL BUN (test code = 2208) 9 MG/DL CREATININE (test code = 2214) 0.61 MG/DL eGFR (2020 CKD-EPI) (test 109 ML/MIN/1.73 code = 80101) CALC BUN/CREAT (test code = 15 RATIO [...] code = 2219) 15 U/L COMPREHENSIVE METABOLIC [id number] 00:00:00 Test Item Value Reference Range Interpretation Comments GLUCOSE (test code = 2217) 95 MG/DL BUN (test code = 2208) 9 MG/DL CREATININE (test code = 2214) 0.61 MG/DL eGFR (2020 CKD-EPI) (test 109 ML/MIN/1.73 code = 46410) CALC BUN/CREAT (test code = 15 RATIO [...] (test code = 2219) 15 U/L LIPID [id number] 00:00:00 Test Item Value Reference Range Interpretation Comments CHOLESTEROL (test code = 2210) 190 MG/DL TRIGLYCERIDES (test code = 2232) 217 MG/DL HDL CHOLESTEROL (test code = 2220) 46 MG/DL CALC LDL CHOL (test code = 2237) 110 MG/DL RISK RATIO LDL/HDL (test code = 2.39 RATIO 2238) LIPID [id number] 00:00:00 Test Item Value Reference Range Interpretation Comments CHOLESTEROL (test code = 2210) 190 MG/DL TRIGLYCERIDES (test code = 2232) 217 MG/DL HDL CHOLESTEROL (test code = 2220) 46 MG/DL CALC LDL CHOL (test code = 2237) 110 MG/DL RISK RATIO LDL/HDL (test code = 2.39 RATIO 2238) [id number] 00:00:00 Test Item Value Reference Range Interpretation Comments TSH, THIRD GENERATION (test code 1.820 UIU/ML = 2821) [id number] 00:00:00 Test Item Value Reference Range Interpretation Comments TSH, THIRD GENERATION (test code 1.820 UIU/ML = 2821) [id number] 00:00:00 Test Item Value Reference Range Interpretation Comments TSH, THIRD GENERATION (test code 1.820 UIU/ML = 2821) PAP TEST, THINPREP, [id number] 00:00:00 Test Item Value Reference Range Interpretation Comments SOURCE: (test code = A) Cervical/Endocervical 8001) SLIDES: (test code = 1 8011) LMP: (test code = 03/09/2016 8021) SPECIMEN ADEQUACY: (NOTE) (test code = 38713) INTERPRETATION: (test NO EPITHELIAL code = 27799) ABNORMALITY SEE BELOW OTHER COMMENTS: (test SEE BELOW code = 8081) PATIENT SVCS MGR: Vandana Phipps, (test code = 8101) CT(ASCP) QC TECHNOLOGIST: Martir Lynn (test code = 8111) LILLIAN Mckay(ASCP)IAC LOCATION: (test code (NOTE) = 63347) CPT: (test code = (NOTE) 8140) PAP TEST, THINPREP, [id number] 00:00:00 Test Item Value Reference Range Interpretation Comments SOURCE: (test code = A) Cervical/Endocervical 8001) SLIDES: (test code = 1 8011) LMP: (test code = 03/09/2016 8021) SPECIMEN ADEQUACY: (NOTE) (test code = 68989) INTERPRETATION: (test NO EPITHELIAL code = 66871) ABNORMALITY SEE BELOW OTHER COMMENTS: (test SEE BELOW code = 8081) PATIENT SVCS MGR: Vandana Phipps, (test code = 8101) CT(ASCP) QC TECHNOLOGIST: Martir Lynn (test code = 8111) Rice,SCT(ASCP)IAC LOCATION: (test code (NOTE) = 01724) CPT: (test code = (NOTE) 8140) PAP TEST, THINPREP, [id number] 00:00:00 Test Item Value Reference Range Interpretation Comments SOURCE: (test code = A) Cervical/Endocervical 8001) SLIDES: (test code = 1 8011) LMP: (test code = 03/09/2016 8021) SPECIMEN ADEQUACY: (NOTE) (test code = 92527) INTERPRETATION: (test NO EPITHELIAL code = 48610) ABNORMALITY SEE BELOW OTHER COMMENTS: (test SEE BELOW code = 8081) PATIENT SVCS MGR: Vandana Phipps, (test code = 8101) CT(ASCP) QC TECHNOLOGIST: Martir Lynn (test code = 8111) WoodySCT(ASCP)IAC LOCATION: (test code (NOTE) = 23925) CPT: (test code = (NOTE) 8140) PAP TEST, THINPREP, [id number] 00:00:00 Test Item Value Reference Range Interpretation Comments SOURCE: (test code = A) Cervical/Endocervical 8001) SLIDES: (test code = 1 8011) LMP: (test code = 03/09/2016 8021) SPECIMEN ADEQUACY: (NOTE) (test code = 90881) INTERPRETATION: (test NO EPITHELIAL code = 37409) ABNORMALITY SEE BELOW OTHER COMMENTS: (test SEE BELOW code = 8081) PATIENT SVCS MGR: Vandana Phipps, (test code = 8101) CT(ASCP) QC TECHNOLOGIST: Martir Lynn (test code = 8111) Woody,SCT(ASCP)IAC LOCATION: (test code (NOTE) = 77378) CPT: (test code = (NOTE) 8140) PAP TEST, THINPREP, [id number] 00:00:00 Test Item Value Reference Range Interpretation Comments SOURCE: (test code = A) Cervical/Endocervical 8001) SLIDES: (test code = 1 8011) LMP: (test code = 03/09/2016 8021) SPECIMEN ADEQUACY: (NOTE) (test code = 55086) INTERPRETATION: (test NO EPITHELIAL code = 10782) ABNORMALITY SEE BELOW OTHER COMMENTS: (test SEE BELOW code = 8081) PATIENT SVCS MGR: Vandana Phipps, (test code = 8101) CT(ASCP) QC TECHNOLOGIST: Martir Lynn (test code = 8111) LILLIAN Mckay(ASCP)IAC LOCATION: (test code (NOTE) = 25780) CPT: (test code = (NOTE) 8140) PAP TEST, THINPREP, [id number] 00:00:00 Test Item Value Reference Range Interpretation Comments SOURCE: (test code = A) Cervical/Endocervical 8001) SLIDES: (test code = 1 8011) LMP: (test code = 03/09/2016 8021) SPECIMEN ADEQUACY: (NOTE) (test code = 85159) INTERPRETATION: (test NO EPITHELIAL code = 70400) ABNORMALITY SEE BELOW OTHER COMMENTS: (test SEE BELOW code = 8081) PATIENT SVCS MGR: Vandana Phipps, (test code = 8101) CT(ASCP) QC TECHNOLOGIST: Martir Lynn (test code = 8111) LILLIAN Mckay(ASCP)IAC LOCATION: (test code (NOTE) = 99647) CPT: (test code = (NOTE) 8140) HPV HIGH RISK WITH GENOTYPE, [id number] 00:00:00 Test Item Value Reference Range Interpretation Comments HPV HIGH RISK INTERP (test code = POSITIVE 08433) HPV 16 (test code = 94612) NEGATIVE HPV 18 (test code = 89852) NEGATIVE HPV, HR, OTHER GENOTYPES (test code POSITIVE = 95127) HPV HIGH RISK WITH GENOTYPE, [id number] 00:00:00 Test Item Value Reference Range Interpretation Comments HPV HIGH RISK INTERP (test code = POSITIVE 38117) HPV 16 (test code = 07214) NEGATIVE HPV 18 (test code = 20877) NEGATIVE HPV, HR, OTHER GENOTYPES (test code POSITIVE = 09118) HPV HIGH RISK WITH GENOTYPE, [id number] 00:00:00 Test Item Value Reference Range Interpretation Comments HPV HIGH RISK INTERP (test code = POSITIVE 47434) HPV 16 (test code = 10172) NEGATIVE HPV 18 (test code = 84280) NEGATIVE HPV, HR, OTHER GENOTYPES (test code POSITIVE = 05646) HPV HIGH RISK WITH GENOTYPE, [id number] 00:00:00 Test Item Value Reference Range Interpretation Comments HPV HIGH RISK INTERP (test code = POSITIVE 18506) HPV 16 (test code = 55459) NEGATIVE HPV 18 (test code = 01612) NEGATIVE HPV, HR, OTHER GENOTYPES (test code POSITIVE = 98221) HPV HIGH RISK WITH GENOTYPE, [id number] 00:00:00 Test Item Value Reference Range Interpretation Comments HPV HIGH RISK INTERP (test code = POSITIVE 90297) HPV 16 (test code = 23570) NEGATIVE HPV 18 (test code = 65118) NEGATIVE HPV, HR, OTHER GENOTYPES (test code POSITIVE = 31692) HPV HIGH RISK WITH GENOTYPE, [id number] 00:00:00 Test Item Value Reference Range Interpretation Comments HPV HIGH RISK INTERP (test code = POSITIVE 18426) HPV 16 (test code = 63790) NEGATIVE HPV 18 (test code = 74101) NEGATIVE HPV, HR, OTHER GENOTYPES (test code POSITIVE = 73241)
[2023-09-22] MEDS ORDERED: ALBUTEROL 2.5 MG/3 ML NEB SOL ONE (13:19)
[2023-09-22] MEDS ORDERED: dexAMETHasone 10 MG/ML VIAL ONE (13:19)
--- NOTE | 2023-09-22 14:10 | RAD REPORT ---
[facility] CLINICAL HISTORY: COUGH COMPARISON: Chest Single View dated 11/09/2022; Chest Single View dated 02/08/2021; Chest Single View dated 06/25/2020 TECHNIQUE: Portable AP view of the chest. FINDINGS: The lungs are clear. No pneumothorax or effusion. The cardiomediastinal contours are unre markable. IMPRESSION: No acute cardiopulmonary process.
--- NOTE | 2023-09-22 14:16 | EDPHYS ---
Physician Documentation [facility] Name: Carolina Rivera Age: 53 yrs Sex: Female : 1970 Arrival Date: 09/22/2023 Time: 12:53 Bed 15 Private MD: ED Physician Kash Bell HPI: 09/22 12:57 This 53 yrs old Female presents to ER via Unassigned with complaints of Flu jh7 Symptoms. 12:57 Onset: The symptoms/episode began/occurred 5 day(s) ago. Associated signs and symptoms: jh7 Pertinent positives: congestion, diarrhea, shortness of breath, wheezing, Pertinent negatives: abdominal pain, chest pain. 12:57 Patient reports that she just tested negative for COVID.. jh7 Historical: - Allergies: 13:08 PENICILLINS; cm10 - PMHx: 13:08 Hypercholesterolemia; Hypertensive disorder; cm10 - Immunization history:: Adult Immunizations up to date. - Social history:: Smoking status: unknown. ROS: 12:57 Eyes: Negative for injury, pain, redness, and discharge, Neck: Negative for injury, jh7 pain, and swelling, Cardiovascular: Negative for chest pain, palpitations, and edema, Abdomen/GI: Negative for abdominal pain, nausea, vomiting, diarrhea, and constipation, Back: Negative for injury and pain, MS/Extremity: Negative for injury and deformity, Skin: Negative for injury, rash, and discoloration, Neuro: Negative for headache, weakness, numbness, tingling, and seizure, 12:57 Constitutional: Positive for malaise, 12:57 ENT: Positive for sinus congestion, 12:57 Respiratory: Positive for cough, shortness of breath, wheezing, 12:57 All other systems are negative, Exam: 12:57 Constitutional: This is a well developed, well nourished patient who is awake, alert, jh7 and in no acute distress. Head/Face: Normocephalic, atraumatic. 12:57 Cardiovascular: Regular rate and rhythm with a normal S1 and S2. No gallops, murmurs, or rubs. Normal PMI, no JVD. No pulse deficits. Abdomen/GI: Soft, non-tender, with normal bowel sounds. No distension or tympany. No guarding or rebound. No evidence of tenderness throughout. Back: No spinal tenderness. No costovertebral tenderness. Full range of motion. Skin: Warm, dry with normal turgor. Normal color with no rashes, no lesions, and no evidence of cellulitis. MS/ Extremity: Pulses equal, no cyanosis. Neurovascular intact. Full, normal range of motion. Neuro: Awake and alert, GCS 15, oriented to person, place, time, and situation. Motor strength 5/5 in all extremities. Sensory grossly intact. Normal gait. 12:57 ENT: Nose: nasal drainage, and is seen coming from both nares, that is watery, 12:57 Respiratory: the patient does not display signs of respiratory distress, Respirations: normal, Breath sounds: rhonchi, that are moderate, are heard diffusely, wheezing: that is mild, is heard diffusely, Persistent, hacking cough noted on exam, Vital Signs: 13:07 BP 106 / 69; Pulse 106; Resp 16; Temp 97.5; Pulse Ox 98% ; cm10 13:39 BP 96 / 65; Pulse 123; Resp 19 S; Pulse Ox 99% on R/A; kc6 14:12 BP 96 / 74; Pulse 118; Resp 19 S; Pulse Ox 100% on R/A; kc6 MDM: 12:57 Patient medically screened. [facility] 14:20 Differential diagnosis: viral Infection, bacterial infection, URI, bronchitis, [facility] pneumonia. Data reviewed: vital signs, nurses notes, radiologic studies, plain films. I considered the following discharge prescriptions or medication management in the emergency department Medications were administered in the Emergency Department. See MAR. Independent interpretation of the following test(s) in the Emergency Department X-Ray: My interpretation is No pneumonia. Care significantly affected by the following chronic conditions: Hypertension. Counseling: I had a detailed discussion with the patient and/or guardian regarding the historical points, exam findings, and any diagnostic results supporting the discharge/admit diagnosis, to return to the emergency department if symptoms worsen or persist or if there are any questions or concerns that arise at home. Response to treatment: the patient's symptoms have markedly improved after treatment. 09/22 13:02 Order name: XRAY Chest (1 view); Complete Time: 14:11 [facility] 09/22 14:11 Order name: Recheck Vital Signs; Complete Time: 14:13 [facility] Administered Medications: 13:20 Drug: Dexamethasone IM 10 mg IM once Route: IM; Site: right deltoid; kc6 14:13 Follow up: Response: No adverse reaction kc6 13:20 Drug: Albuterol Inhalation 2.5 mg Inhalation every 20 minutes x3 Route: Inhalation; kc6 13:20 Drug: Albuterol Inhalation 2.5 mg Inhalation every 20 minutes x3 Route: Inhalation; kc6 13:20 Drug: Albuterol Inhalation 2.5 mg Inhalation every 20 minutes x3 Route: Inhalation; kc6 Disposition Summary: 09/22/23 14:15 Discharge Ordered Notes: Location: Home [facility] Problem: new jh Symptoms: have improved jh Condition: Stable jh7 Diagnosis - Acute bronchitis, unspecified [facility] Followup: [facility] - With: Private Physician - When: 2 - 3 days - Reason: Recheck today's complaints Discharge Instructions: - Discharge Summary Sheet [facility] - Acute Bronchitis, Adult [facility] Forms: - Medication Reconciliation Form [facility] - Thank You Letter [facility] - Patient Portal Instructions [facility] - Leadership Thank You Letter [facility] Prescriptions: - Bromfed DM 2-30-10 mg/5 mL Oral syrup - administer 10 milliliter ORAL route every 4-6 hours As needed as needed for [facility] cold symptoms; 240 milliliter; Refills: 0, Product Selection Permitted - albuterol sulfate 90 mcg/actuation Inhalation HFA Aerosol Inhaler - inhale 1 puff INHALATION route every 4 to 6 hours As needed; 1 Each; Refills: [facility] 0, Product Selection Permitted - Tessalon Perles 100 mg Oral Capsule - take 1 capsule ORAL route every 8 hours As needed; 15 capsule; Refills: 0, [facility] Product Selection Permitted - Medrol (Richie) 4 mg Oral Tablets, Dose Pack - take 1 tablet ORAL route as directed - follow package instructions; 1 packet; 7 Refills: 0, Product Selection Permitted Signatures: Dispatcher [employer] Tsering Oliver FNP [employer] jh7 Inga Smith RN RN kc6 Matilde Malagon RN RN cm10 Corrections: (The following items were deleted from the chart) 13:07 12:57 Associated signs and symptoms: Pertinent positives: congestion, diarrhea, jh7 shortness of breath, wheezing, Pertinent negatives: abdominal pain, chest pain, jh7
--- NOTE | 2023-09-22 14:16 | ER ---
Nurse's Notes [facility] Name: Carolina Rivera Age: 53 yrs Sex: Female : 1970 Arrival Date: 09/22/2023 Time: 12:53 Bed 15 Private MD: Diagnosis: Acute bronchitis, unspecified Presentation: 09/22 13:07 Chief complaint: Patient states: flu like symptoms onset 5 days ago. Pt reports fever cm10 on Tuesday, cough congestion and wheezing. Coronavirus screen: Client denies travel out of the [place] in the last 14 days. Ebola Screen: Patient denies travel to an Ebola-affected area in the 21 days before illness onset. No symptoms or risks identified at this time. Initial Sepsis Screen: Does the patient meet any 2 criteria? No. Patient's initial sepsis screen is negative. Does the patient have a suspected source of infection? No. Patient's initial sepsis screen is negative. Risk Assessment: Do you want to hurt yourself or someone else? Patient reports no desire to harm self or others. Onset of symptoms was September 22, 2023. 13:07 Method Of Arrival: Ambulatory cm10 13:07 Acuity: DANETTE 3 cm10 Historical: - Allergies: 13:08 PENICILLINS; cm10 - PMHx: 13:08 Hypercholesterolemia; Hypertensive disorder; cm10 - Immunization history:: Adult Immunizations up to date. - Social history:: Smoking status: unknown. Screenin:15 [facility] ED Fall Risk Assessment (Adult) History of falling in the last 3 months, kc6 including since admission No falls in past 3 months (0 pts) Confusion or Disorientation No (0 pts) Intoxicated or Sedated No (0 pts) Impaired Gait No (0 pts) Mobility Assist Device Used No (0 pt) Altered Elimination No (0 pt) Score/Fall Risk Level 0 - 2 = Low Risk. Abuse screen: Denies threats or abuse. Denies injuries from another. Nutritional screening: No deficits noted. Tuberculosis screening: No symptoms or risk factors identified. Assessment: 13:38 General: Appears in no apparent distress. comfortable, Behavior is calm, cooperative, kc6 appropriate for age, Reports chills for fever for feeling ill for. Pain: Denies pain. Neuro: Level of Consciousness is awake, alert, obeys commands, Oriented to person, place, time, situation, Appropriate for age. Cardiovascular: Denies chest pain, Capillary refill < 3 seconds. Respiratory: Reports cough that is Airway is patent Trachea midline Respiratory effort is even, unlabored, Respiratory pattern is regular, symmetrical, Denies shortness of breath. GI: No signs and/or symptoms were reported involving the gastrointestinal system. : No signs and/or symptoms were reported regarding the genitourinary system. EENT: Reports difficulty swallowing nasal congestion. Derm: No signs and/or symptoms reported regarding the dermatologic system. Skin is intact, is healthy with good turgor, Skin is pink, warm \T\ dry. Musculoskeletal: No signs and/or symptoms reported regarding the musculoskeletal system. Circulation, motion, and sensation intact. Capillary refill < 3 seconds, Range of motion: intact in all extremities. Vital Signs: 13:07 BP 106 / 69; Pulse 106; Resp 16; Temp 97.5; Pulse Ox 98% ; cm10 13:39 BP 96 / 65; Pulse 123; Resp 19 S; Pulse Ox 99% on R/A; kc6 14:12 BP 96 / 74; Pulse 118; Resp 19 S; Pulse Ox 100% on R/A; kc6 ED Course: 12:56 Patient arrived in ED. mg5 12:57 Tsering Burch FNP is [facility] jh7 12:57 Kash Bell MD is Attending Physician. [facility] 13:03 Inga Smith, MASSIEL is Primary Nurse. kc6 13:08 Triage completed. cm10 13:08 Arm band placed on Patient placed in an exam room, on a stretcher. cm10 13:15 Patient has correct armband on for positive identification. Bed in low position. Call kc6 light in reach. Side rails up X 1. Adult w/ patient. Client placed on continuous cardiac and pulse oximetry monitoring. NIBP monitoring applied. 13:20 XRAY Chest (1 view) In Process Unspecified. EDMS 14:23 No provider procedures requiring assistance completed. Patient did not have IV access kc6 during this emergency room visit. Administered Medications: 13:20 Drug: Dexamethasone IM 10 mg IM once Route: IM; Site: right deltoid; kc6 14:13 Follow up: Response: No adverse reaction 6 13:20 Drug: Albuterol Inhalation 2.5 mg Inhalation every 20 minutes x3 Route: Inhalation; kc6 13:20 Drug: Albuterol Inhalation 2.5 mg Inhalation every 20 minutes x3 Route: Inhalation; kc6 13:20 Drug: Albuterol Inhalation 2.5 mg Inhalation every 20 minutes x3 Route: Inhalation; kc6 Medication: 14:24 VIS not applicable for this client. kc6 Outcome: 14:15 Discharge ordered by MD. de leon 14:23 Discharged to home ambulatory, with family, kc6 14:23 Condition: good 14:23 Discharge instructions given to patient, Instructed on discharge instructions, follow up and referral plans. medication usage, Demonstrated understanding of instructions, follow-up care, medications, Prescriptions given X 4, 14:30 Patient left the ED. kc6 Signatures: Dispatcher [employer] EDMS Tsering Burch, WHITE KID BUFFER WHITE KID BUFFER Inga Aparicio, RN RN [email or web address] Matilde Malagon RN RN cm10 Marce Villalta mg5 Corrections: (The following items were deleted from the chart) 13:39 13:38 Respiratory: Airway is patent Trachea midline Respiratory effort is even, kc6 unlabored, Respiratory pattern is regular, symmetrical, Denies shortness of breath kc6
[2023-09-22 16:18] VITALS: TEMP 97.5
[2023-09-22 16:22] VITALS: BP 96/74; O2SAT 100
== END 2023-09-22 14:30 | disposition home or self-care (01) ==
LOC: ER 12:53
DX: J20.9 Acute bronchitis, unspecified (principal); I10 Essential (primary) hypertension; Z88.0 Allergy status to penicillin
CPT/HCPCS: 71045; 96372; 99284; J7613; J1100

== ENCOUNTER 2024-09-04 05:47 | Inpatient (IN) | payer OTHER ==
--- OUTSIDE RECORDS SUMMARY | 2024-09-04 05:53 | XMS REPORT | Continuity of Care Document ---
Author Name Unknown Address [address] [facility] [address] [place] [address] [facility] thconnect Address [address] [facility] 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 Whole Name Role Phone Juana Douglas Primary Care Physician CARSON [place] Attending Clinician Unavailable Pranav Peña MD Attending Clinician [phone] Payers Payer Name Policy Type Policy Number Effective Date Expirati on Date Source [facility] [id number] 2019 00:00:00 Allergies, Adverse Reactions, Alerts Allergy Name Allergy Type Status Severity Reaction(s) Onset Date Inactive Date Treating Clinician Comments Source Penicill ins - CLASS Propensi ty to adverse reaction to drug Active 2021-11 003 00:00: 00 Shmuel Griffith PENICILL IN DRUG INGREDI Active ITCHING 2-27 00:00: 00 [facility] Penicill ins Propensi ty to adverse reaction to drug Active 5-03 00:00: 00 Shmuel Griffith NO KNOWN ALLERGIE S Drug Class Active [facility] Medications Ordered Medication Name Filled Medication Name Start Date Stop Date Current Medication? Ordering Clinician Indication Dosage Frequency Signature (SIG) Comments Components Source Cipro 500 mg tablet 08-14 00:00: 00 Yes 1mg Shmuel Griffith Lomotil 2.5 mg-0.025 mg tablet 08-14 00:00: 00 Yes 2mg Shmuel Griffith azithromyci n 250 mg tablet 06-15 00:00: 00 Yes mg Shmuel Griffith metformin 500 mg tablet 06-15 00:00: 00 Yes 1mg Shmuel Griffith lisinopril 10 mg tablet 06-15 00:00: 00 Yes 1mg Shmuel Griffith atorvastati n 10 mg tablet 06-15 00:00: 00 Yes 1mg Shmuel Griffith metformin 500 mg tablet 01-28 00:00: 00 Yes 1mg Shmuel Griffith bromphenira mine-pseudo ephedrine-D M 2 mg-30 mg-10 mg/5 mL oral syrup - 00:00: 00 Yes mg/5 mL Shmuel Griffith albuterol sulfate HFA 90 mcg/actuati on aerosol inhaler 01-26 00:00: 00 Yes mcg/act uation Shmuel Griffith lisinopril 10 mg tablet - 00:00: 00 Yes 1mg Shmuel Griffith metformin 500 mg tablet - 00:00: 00 Yes 1mg Shmuel Griffith atorvastati n 10 mg tablet 01-26 00:00: 00 Yes 1mg Shmuel Griffith gabapentin 300 mg capsule 01-26 00:00: 00 Yes 1mg Shmuel Griffith bromphenira mine-pseudo ephedrine-D M 2 mg-30 mg-10 mg/5 mL oral syrup 2022-11 00:00: 00 Yes mg/5 mL Shmuel Griffith albuterol sulfate HFA 90 mcg/actuati on aerosol inhaler 2022-11 00:00: 00 Yes mcg/act uation Shmuel Griffith METHYLPREDN ISOLONE DOSE PACK 4 MG TBPK 2022-11 00:00: 00 Yes Shmuel Griffith TAKE 1 CAPSULE BY MOUTH EVERY 8 HOURS NEEDED FOR COUGH 2022-11 00:00: 00 Yes Shmuel Griffith TAKE 1 TABLET DAILY. 2022-11 0- 00:00: 00 Yes 500 Shmuel Griffith TAKE 1 TABLET DAILY. 2022-11 0 00:00: 00 01-31 00:00 :00 No 20 Shmuel Griffith TAKE 1 TABLET BID NEEDED 2022-11 0-06 00:00: 00 01-31 00:00 :00 No 600 Shmuel Griffith TAKE 1 CAPSULE AT BEDTIME. 2022-11 0-06 00:00: 00 01-31 00:00 :00 No 300 Shmuel Griffith TAKE 1 TABLET BID NEEDED 0 7-19 00:00: 00 01-31 00:00 :00 No 600 Shmuel Griffith ATORVASTATI N CALCIUM 10 MG TABS 6- 00:00: 00 Yes Shmuel Griffith LISINOPRIL 10 MG TABS 6- 00:00: 00 Yes Shmuel Griffith METFORMIN HYDROCHLORI DE 500 MG TABS 04-27 00:00: 00 Yes Shmuel Griffith TAKE 1 CAPSULE AT BEDTIME. 5 00:00: 00 01-31 00:00 :00 No 300 Shmuel Griffith TAKE 1 TABLET BY MOUTH EVERY 12 HOURS FOR 10 DAYS 0 03-16 00:00: 00 Yes Shmuel Griffith DISSOLVE 1 TABLET IN MOUTH EVERY 8 TO 10 HOURS NEEDED 0 03-16 00:00: 00 Yes Shmuel Griffith TAKE 1 TABLET BY MOUTH EVERY 8 HOURS 0 03-16 00:00: 00 Yes Shmuel Griffith TAKE 1 TABLET BY MOUTH EVERY 8 HOURS FOR 10 DAYS 03-16 00:00: 00 Yes Shmuel Griffith NITROFURANT OIN MONOHYDRATE /MACROCRY STALS 100 MG 4-24 00:00: 00 Yes Shmuel Griffith TAKE 1 CAPSULE TWICE DAILY WITH FOOD. 4-24 00:00: 00 01-31 00:00 :00 No 100 Shmuel Griffith TAKE 1 TABLET DAILY. 2-24 00:00: 00 01-31 00:00 :00 No 500 Shmuel Griffith ATORVASTATI N CALCIUM 10 MG TABS 2-17 00:00: 00 Yes Shmuel Griffith GABAPENTIN 300 MG 2-17 00:00: 00 Yes Shmuel Griffith TAKE 1 TABLET DAILY. 2-17 00:00: 00 01-31 00:00 :00 No 25 Shmuel Griffith INHALE 1 TO 2 PUFFS EVERY 6 HOURS NEEDED. 01-07 00:00: 00 01-31 00:00 :00 No 07139 Shmuel Griffith TAKE 1 TABLET DAILY. 01-07 00:00: 00 01-31 00:00 :00 No 10 Shmuel Griffith TAKE 1 CAPSULE AT BEDTIME. 12-02 00:00: 00 01-31 00:00 :00 No 300 Shmuel Griffith AZITHROMYCI N 250 MG TABS 2021-11 00:00: 00 Yes Shmuel Griffith ALBUTEROL SULFATE HFA 108 (90 Base) MCG/ACT AERS 2021-11 00:00: 00 Yes Shmuel Griffith BROMPHEN/PS EUDOEPHEDRI NE HCL/DEXTRO METHORPHAN HBR 30-2-10 MG/5ML SYRP 2021-11 00:00: 00 Yes Shmuel Griffith IBUPROFEN 800 MG TABS 2021-11 00:00: 00 Yes Shmuel Grifftih METRONIDAZO LE 0.75 % LOTN 2021-11 00:00: 00 Yes Shmuel Griffith TAKE 1 TABLET DAILY. 2021-11 00:00: 00 No TAKE 1 TABLET DAILY. 2021-11 00:00: 00 01-31 00:00 :00 No 10 Shmuel Griffith APPLY AND RUB IN A THIN FILM TO AFFECTED AREAS TWICE DAILY.(AM AND PM). 2021-11 00:00: 00 01-31 00:00 :00 No 75 Shmuel Griffith BENZONATATE 100 MG 2021-11 004 00:00: 00 Yes Shmuel Griffith Dose Unknown 03-16 00:00: 00 Yes Shmuel Griffith Dose Unknown 03-16 00:00: 00 No Dose Unknown 03-16 00:00: 00 No Dose Unknown 03-16 00:00: 00 No Dose Unknown 03-10 00:00: 00 Yes Shmuel Griffith Dose Unknown 2022-0 4-20 00:00: 00 No Dose Unknown 2022-0 4-20 00:00: 00 No Dose Unknown 2022-0 4-20 00:00: 00 No Dose Unknown 2022-0 4-19 00:00: 00 Yes Shmuel Griffith Dose Unknown 2022-0 4-19 00:00: 00 No Dose Unknown 2022-0 4-19 00:00: 00 No Dose Unknown 2022-0 4-19 00:00: 00 No atorvastati n 10 mg tablet 2022-0 4-15 00:00: 00 Yes 1mg Shmuel Griffith atorvastati n 10 mg tablet 2022-0 4-15 00:00: 00 No 1mg atorvastati n 10 mg tablet 2022-0 4-15 00:00: 00 No 1mg atorvastati n 10 mg tablet 2022-0 4-15 00:00: 00 No 1mg TAKE 1 TABLET DAILY. 2022-0 4-14 00:00: 00 Yes Shmuel Griffith Dose Unknown 2022-0 4-14 00:00: 00 Yes Shmuel Griffith Dose Unknown 2022-0 4-14 00:00: 00 Yes Shmuel Griffith Dose Unknown 2022-0 4-14 00:00: 00 Yes Shmuel Griffith Dose Unknown 2022-0 4-14 00:00: 00 No Dose Unknown 2022-0 4-14 00:00: 00 No Dose Unknown 2022-0 4-14 00:00: 00 No Dose Unknown 2022-0 4-14 00:00: 00 No Dose Unknown 2022-0 4-14 00:00: 00 No Dose Unknown 2022-0 4-14 00:00: 00 No Dose Unknown 2022-0 4-14 00:00: 00 No Dose Unknown 2022-0 4-14 00:00: 00 No TAKE 1 TABLET DAILY. 2022-0 4-14 00:00: 00 No Dose Unknown 2022-0 4-14 00:00: 00 No Dose Unknown 2022-0 4-14 00:00: 00 No Dose Unknown 2022-0 4-14 00:00: 00 No Dose Unknown 2022-0 4-13 00:00: 00 Yes Shmuel Griffith Dose Unknown 2022-0 4-13 00:00: 00 Yes Shmuel Griffith Dose Unknown 2022-0 4-13 00:00: 00 Yes Shmuel Griffith Dose Unknown 2022-0 4-13 00:00: 00 No Dose Unknown 2022-0 4-13 00:00: 00 No Dose Unknown 2022-0 4-13 00:00: 00 No Dose Unknown 2022-0 4-13 00:00: 00 No Dose Unknown 202-0 4-13 00:00: 00 No Dose Unknown 2022-0 4-13 00:00: 00 No Dose Unknown 2022-0 4-13 00:00: 00 No Dose Unknown 2022-0 4-13 00:00: 00 No Dose Unknown 2022-0 4-13 00:00: 00 No Dose Unknown 202-0 4-07 00:00: 00 Yes Shmuel Griffith lisinopril 20 mg tablet 1-0 4-07 00:00: 00 Yes 1mg Shmuel Griffith TAKE 1 TABLET DAILY. 2020-0 4-07 00:00: 00 Yes Shmuel Griffith Dose Unknown 2020-0 4-07 00:00: 00 Yes Shmuel Griffith Dose Unknown 2020-0 4-07 00:00: 00 No Dose Unknown 2020-0 4-07 00:00: 00 No Dose Unknown 2020-0 4-07 00:00: 00 No lisinopril 20 mg tablet 1-0 4-07 00:00: 00 No 1mg Dose Unknown 2020-0 4-07 00:00: 00 No Dose Unknown 2020-0 4-07 00:00: 00 No Dose Unknown 1-0 4-07 00:00: 00 No lisinopril 20 mg tablet 1-0 4-07 00:00: 00 No 1mg TAKE 1 TABLET DAILY. 2020-0 4-07 00:00: 00 No Dose Unknown 2020-0 4-07 00:00: 00 No Dose Unknown 1-0 4-07 00:00: 00 No lisinopril 20 mg tablet 1-0 4-07 00:00: 00 No 1mg lisinopril 20 mg tablet 2021-0 3-24 00:00: 00 Yes 1mg Shmuel Griffith Dose Unknown 2021-0 3-24 00:00: 00 Yes Shmuel Griffith Dose Unknown 2021-0 3-24 00:00: 00 Yes Shmuel Griffith lisinopril 20 mg tablet 02-11 00:00: 00 No 1mg Dose Unknown 0 02-11 00:00: 00 No Dose Unknown 0 02-11 00:00: 00 No lisinopril 20 mg tablet 0 02-11 00:00: 00 No 1mg Dose Unknown 02-11 00:00: 00 No Dose Unknown 02-11 00:00: 00 No lisinopril 20 mg tablet 02-11 00:00: 00 No 1mg Dose Unknown 02-11 00:00: 00 No Dose Unknown 0 02-11 00:00: 00 No Vital Signs Vital Name Observation Time Observation Value Comments S ource BP Systolic 2024-08-14 14:39:00 115 mm[Hg] Step hen F Nacho BP Diastolic 2024-08-14 14:39:00 79 mm[Hg] Oswald phen F Nacho Weight Measured 2024-08-14 14:39:00 154.60 pounds Shmuel F Nacho Height Measured 2024-08-14 14:39:00 64.41 inches Shmuel F Nacho Body Temperature 2024-08-14 14:39:00 98.00 degrees Shmuel F Nacho Heart Rate 2024-08-14 14:39:00 113.00 /min Step hen F Nacho Respiratory Rate 2024-08-14 14:39:00 19.00 /min Shmuel F Nacho BP Systolic 2024-06-15 16:29:00 119 mm[Hg] Step hen F Nacho BP Diastolic 2024-06-15 16:29:00 78 mm[Hg] Oswald phen F Nacho Weight Measured 2024-06-15 16:29:00 154.20 pounds Shmuel F Nacho Height Measured 2024-06-15 16:29:00 64.41 inches Shmuel F Nacho Body Temperature 2024-06-15 16:29:00 97.20 degrees Shmuel F Nacho Heart Rate 2024-06-15 16:29:00 72.00 /min Otilia en F Nacho Respiratory Rate 2024-06-15 16:29:00 Shmuel F Nacho BP Systolic 2024-06-04 13:33:00 125 mm[Hg] Step hen F Nacho BP Diastolic 2024-06-04 13:33:00 72 mm[Hg] Oswald phen F Nacho Weight Measured 2024-06-04 13:33:00 153.00 pounds Shmuel F Nacho Height Measured 2024-06-04 13:33:00 64.41 inches Shmuel F Nacho Body Temperature 2024-06-04 13:33:00 97.10 degrees Shmuel F Nacho Heart Rate 2024-06-04 13:33:00 74.00 /min Otilia en F Nacho Respiratory Rate 2024-06-04 13:33:00 18.00 /min Shmuel F Nacho BP Systolic 2024-01-27 13:34:00 128 mm[Hg] Step hen F Nacho BP Diastolic 2024-01-27 13:34:00 82 mm[Hg] Oswald phen F Nacho Weight Measured 2024-01-27 13:34:00 152.08 pounds Shmuel F Nacho Height Measured 2024-01-27 13:34:00 64.41 inches Shmuel F Nacho Body Temperature 2024-01-27 13:34:00 98.20 degrees Shmuel F Nacho Heart Rate 2024-01-27 13:34:00 98.00 /min Otilia en F Nacho Respiratory Rate 2024-01-27 13:34:00 18.00 /min Shmuel F Nacho BP Systolic 2023-09-26 15:16:00 132 mm[Hg] Step hen F Nacho BP Diastolic 2023-09-26 15:16:00 77 mm[Hg] Oswald phen F Nacho Weight Measured 2023-09-26 15:16:00 151.40 pounds Shmuel F Nacho Height Measured 2023-09-26 15:16:00 64.41 inches Shmuel F Nacho Body Temperature 2023-09-26 15:16:00 98.30 degrees Shmuel F Nacho Heart Rate 2023-09-26 15:16:00 95.00 /min Otilia en F Nacho Respiratory Rate 2023-09-26 15:16:00 Shmuel F Nacho BP Systolic 2023-08-26 16:34:00 131 mm[Hg] Step hen F Nacho BP Diastolic 2023-08-26 16:34:00 87 mm[Hg] Oswald phen F Nacho Weight Measured 2023-08-26 16:34:00 153.40 pounds Shmuel F Nacho Height Measured 2023-08-26 16:34:00 64.41 inches Shmuel F Nacho Body Temperature 2023-08-26 16:34:00 97.90 degrees Shmuel F Nacho Heart Rate 2023-08-26 16:34:00 97.00 /min Otilia en F Nacho Respiratory Rate 2023-08-26 16:34:00 Shmuel F Nacho BP Systolic 2023-06-08 16:33:00 112 mm[Hg] Step hen F Nacho BP Diastolic 2023-06-08 16:33:00 72 mm[Hg] Oswald phen F Nacho Weight Measured 2023-06-08 16:33:00 152.20 pounds Shmuel F Nacho Height Measured 2023-06-08 16:33:00 64.41 inches Shmuel F Nacho Body Temperature 2023-06-08 16:33:00 98.30 degrees Shmuel F Nacho Heart Rate 2023-06-08 16:33:00 96.00 /min Otilia en F Nacho Respiratory Rate 2023-06-08 16:33:00 Shmuel F Nacho BP Systolic 2023-04-27 16:50:00 130 mm[Hg] Step hen F Nacho BP Diastolic 2023-04-27 16:50:00 88 mm[Hg] Oswald phen F Nacho Weight Measured 2023-04-27 16:50:00 153.00 pounds Shmuel F Nacho Height Measured 2023-04-27 16:50:00 64.41 inches Shmuel F Nacho Body Temperature 2023-04-27 16:50:00 98.30 degrees Shmuel F Nacho Heart Rate 2023-04-27 16:50:00 82.00 /min Otilia en F Nacho Respiratory Rate 2023-04-27 16:50:00 18.00 /min Shmuel F Nacho BP Systolic 2023-03-23 16:14:00 124 mm[Hg] Step hen F Nacho BP Diastolic 2023-03-23 16:14:00 82 mm[Hg] Oswald phen F Nacho Weight Measured 2023-03-23 16:14:00 154.80 pounds Shmuel F Nacho Height Measured 2023-03-23 16:14:00 64.41 inches Shmuel F Nacho Body Temperature 2023-03-23 16:14:00 98.30 degrees Shmuel F Nacho Heart Rate 2023-03-23 16:14:00 86.00 /min Otilia en F Nacho Respiratory Rate 2023-03-23 16:14:00 18.00 /min Shmuel F Nacho BP Systolic 2023-03-14 08:44:00 147 mm[Hg] Step hen F Nacho BP Diastolic 2023-03-14 08:44:00 90 mm[Hg] Oswald phen F Nacho Weight Measured 2023-03-14 08:44:00 147.60 pounds Shmuel F Nacho Height Measured 2023-03-14 08:44:00 64.41 inches Shmuel F Nacho Body Temperature 2023-03-14 08:44:00 98.20 degrees Shmuel F Nacho Heart Rate 2023-03-14 08:44:00 80.00 /min Otilia en F Nacho Respiratory Rate 2023-03-14 08:44:00 18.00 /min Shmuel F Nacoh BP Systolic 2023-01-07 15:32:00 117 mm[Hg] Step hen F Nacho BP Diastolic 2023-01-07 15:32:00 79 mm[Hg] Oswald phen F Nacho Weight Measured 2023-01-07 15:32:00 150.80 pounds Shmuel F Nacho Height Measured 2023-01-07 15:32:00 64.41 inches Shmuel F Nacho Body Temperature 2023-01-07 15:32:00 98.20 degrees Shmuel F Nacho Heart Rate 2023-01-07 15:32:00 80.00 /min Otilia en F Nacho Respiratory Rate 2023-01-07 15:32:00 18.00 /min Shmuel F Nacho BP Systolic 2022-11-09 16:26:00 151 mm[Hg] Step hen F Nacho BP Diastolic 2022-11-09 16:26:00 89 mm[Hg] Oswald phen F Nacho Weight Measured 2022-11-09 16:26:00 158.60 pounds Shmuel F Nacho Height Measured 2022-11-09 16:26:00 64.41 inches Shmuel F Nacho Body Temperature 2022-11-09 16:26:00 98.90 degrees Shmuel F Nacho Heart Rate 2022-11-09 16:26:00 73.00 /min Otilia en F Nacho Respiratory Rate 2022-11-09 16:26:00 Shmuel F Nacho BP Systolic 2022-10-01 16:41:00 131 mm[Hg] BP [...] Procedures Procedure Date / Time Performed Performing Clinicia n Source 28274 Ekg W/ At Least 12 Leads W/ I r 2022-11-09 00:00:00 Shmuel Griffith Ekg W/ At Least 12 Leads W/ I r 2022-03-04 00:00:00 Shmuel Griffith 26921 - Removal Of Impacted Cerumen Using Irrigation/lavage 2021-02-11 00:00:00 Shmuel Griffith Plan of Care Planned Activity Planned Date Details Comments Source Goal Plan of Care Note [code = 55996-4] Goal Plan of Care Note [code = 03923-2] Goal Plan of Care Note [code = 50866-0] Goal Plan of Care Note [code = 71285-1] Goal Plan of Care Note [code = 94414-6] Goal Plan of Care Note [code = 91705-9] Goal Plan of Care Note [code = 90525-2] Goal Plan of Care Note [code = 78259-0] Goal Plan of Care Note [code = 93635-0] Goal Plan of Care Note [code = 48038-8] Goal Plan of Care Note [code = 14268-4] Goal Plan of Care Note [code = 76093-3] Goal Plan of Care Note [code = 36370-4] Goal Plan of Care Note [code = 20282-3] Goal Plan of Care Note [code = 10562-4] Goal Plan of Care Note [code = 27073-2] Goal Plan of Care Note [code = 55751-7] Goal Plan of Care Note [code = 95594-2] Goal Plan of Care Note [code = 34555-7] Goal Plan of Care Note [code = 86489-2] Goal Plan of Care Note [code = 15969-2] Goal Plan of Care Note [code = 69926-6] Goal Plan of Care Note [code = 35410-0] Goal Plan of Care Note [code = 66974-8] Goal Plan of Care Note [code = 54687-6] Goal Plan of Care Note [code = 20468-7] Goal Plan of Care Note [code = 55960-0] Goal Plan of Care Note [code = 52273-0] Goal Plan of Care Note [code = 14379-6] Goal Plan of Care Note [code = 56614-5] Goal Plan of Care Note [code = 05411-5] Goal Plan of Care Note [code = 54792-5] Goal Plan of Care Note [code = 14530-3] Goal Plan of Care Note [code = 79337-3] Goal Plan of Care Note [code = 65286-2] Goal Plan of Care Note [code = 15581-3] Goal Plan of Care Note [code = 04972-7] Goal Plan of Care Note [code = 88264-0] Goal Plan of Care Note [code = 89691-9] Goal Plan of Care Note [code = 07009-9] Goal Plan of Care Note [code = 69495-0] Goal Plan of Care Note [code = 81683-0] Goal Plan of Care Note [code = 77101-5] Goal Plan of Care Note [code = 83097-5] Encounters Start Date/Time End Date/Time Encounter Type Admission Type Attending [facility] Care Department Encounter ID Source 2024-08-14 14:30:39 2024-08-14 14:30:39 Outpatient [facility] [id number] Shmuel Griffith 2024-08-14 00:00:00 2024-08-14 00:00:00 Outpatient Visit [facility] [id number] Shmuel Griffith 2024-06-15 16:20:25 2024-06-15 16:20:25 Outpatient [facility] [id number] Shmuel Griffith 2024-06-15 00:00:00 2024-06-15 00:00:00 Outpatient Visit [facility] [id number] Shmuel Griffith 2024-06-04 13:29:15 2024-06-04 13:29:15 Outpatient [facility] [id number] Shmuel Griffith 2024-06-04 00:00:00 2024-06-04 00:00:00 Outpatient Visit [facility] [id number] Shmuel Griffith 2024-01-27 13:29:44 2024-01-27 13:29:44 Outpatient [facility] [id number] Shmuel Griffith 2023-09-26 15:02:16 2023-09-26 15:02:16 Outpatient [facility] [id number] Shmuel Griffith 2023-08-26 16:24:58 2023-08-26 16:24:58 Outpatient [facility] [id number] Shmuel Griffith 2023-08-02 16:10:14 2023-08-02 16:10:14 Outpatient [facility] [id number] Shmuel Griffith 2023-06-08 16:04:47 2023-06-08 16:04:47 Outpatient [facility] [id number] Shmuel Griffith 2023-04-28 16:01:32 2023-04-28 16:01:32 Outpatient [facility] [id number] Shmuel Griffith 2023-04-27 16:42:39 2023-04-27 16:42:39 Outpatient [facility] [id number] Shmuel Griffith 2023-03-23 15:53:42 2023-03-23 15:53:42 Outpatient [facility] [id number] Shmuel Griffith 2023-03-14 08:28:39 2023-03-14 08:28:39 Outpatient [facility] [id number] Shmuel Griffith 2023-01-12 14:23:24 2023-01-12 14:23:24 Outpatient [facility] [id number] Shmuel Griffith 2023-01-10 09:29:30 2023-01-10 09:29:30 Outpatient [facility] [id number] Shmuel Griffith 2023-01-07 15:27:00 2023-01-07 15:27:00 Outpatient [facility] [id number] Shmuel Griffith 2022-11-09 16:26:02 2022-11-09 16:26:02 Outpatient [facility] [id number] Shmuel Griffith 2022-10-01 16:35:49 2022-10-01 16:35:49 Outpatient [facility] [id number] Shmuel Griffith 2022-10-01 00:00:00 2022-10-01 00:00:00 Outpatient Visit [id number] 2022-08-26 16:08:31 2022-08-26 16:08:31 Outpatient [facility] [id number] Shmuel Griffith 2022-08-26 00:00:00 2022-08-26 00:00:00 Outpatient Visit [id number] 2022-08-24 09:21:51 2022-08-24 09:21:51 Outpatient [facility] [id number] Shmuel Griffith 2022-08-23 15:41:04 2022-08-23 15:41:04 Outpatient [facility] [id number] Shmuel Griffith 2022-08-23 00:00:00 2022-08-23 00:00:00 Outpatient Visit [id number] 2021-06-08 18:35:00 2021-06-08 18:35:00 Emergency X [facility] ERT [id number] [facility] 2020-01-17 10:08:04 2020-01-17 10:53:00 Emergency Pranav Peña [facility] [id number] 2020-01-17 09:56:00 2020-01-17 09:56:00 Emergency X [facility] ERT [id number] [facility] Results Test Description Test Time Test Comments Results Result Co mments Source HEMOGLOBIN [id number] 00:00:00* Test Item Value Reference Range Interpretation Comme nts HEMOGLOBIN A1c (test code = 88105) 6.1 % Shmuel GriffithALBUMIN/CREATININE RATIO, URINE, [id number] 05:49:36* Test Item Value Reference Range Interpretation Comme nts CREATININE, URINE, CONC. (test code = 2072) 119.0 MG/DL NOT ESTAB ALBUMIN, URINE, RANDOM (test code = 35257) 0.9 MG/DL NOT ESTAB CALC ALBUMIN/CREAT, RND (test code = 94464) 8 MG/G <30 Note: Albumin/Cr eatinine ratio reference interval reflects ADA and NKF guidelines. UNLESS OTHERWISE INDICATED, ALL TESTING PERFORMED AT [facility] [address] [place] [address] [employer] OPERATOR: ESTEVAN ZELAYA M.D. CLIA NUMBER [id number] [facility] [place] [id number] ALBUMIN/CREATININE RATIO, RANDOM [id number] 00:00:00* Test Item Value Reference Range Interpretation Comme nts CREATININE, URINE, CONC. (te st code = 2072) 119.0 MG/DL ALBUMIN, URINE, RANDOM (test code = 71317) 0.9 MG/DL CALC ALBUMIN/CREAT, RND (ana t code = 36384) 8 MG/G Shmuel Ferguson, THIRD [id number] 00:41:02* Test Item Value Reference Range Interpretation Comme nts TSH, THIRD GENERATION (test code = 2821) 1.210 UIU/ML 0.400-4.100 COMPREHENSIVE METABOLIC [id number] 00:40:02* Test Item Value Reference Range Interpretation Comme nts GLUCOSE (test code = 2217) 101 MG/DL 70-99 H BUN (test code = 2207) 10 MG/DL 6-20 CREATININE (test code = 2214) 0.69 MG/DL 0.60-1.30 eGFR (2020 CKD-EPI) (test code = 30133) 104 ML/MIN/1.73 >60 CALC BUN/CREAT (test code = 2235) 14 RATIO 6-28 SODIUM (test code = 223) 142 MEQ/L 133-146 POTASSIUM (test code = 2228) 4.2 MEQ/L 3.5-5.4 CHLORIDE (test code = 2215) 104 MEQ/L 95-107 CARBON DIOXIDE (test code = 2206) 23 MEQ/L 19-31 CALCIUM (test code = 2209) 9.8 MG/DL 8.5-10.5 PROTEIN, TOTAL (test code = 222) 6.8 G/DL 6.1-8.3 ALBUMIN (test code = 1) 4.3 G/DL 3.5-5.2 CALC GLOBULIN (test code = 2240) 2.5 G/DL 1.9-3.7 CALC A/G RATIO (test code = 223) 1.7 RATIO 1.0-2.6 BILIRUBIN, TOTAL (test code = 2206) <0.2 MG/DL <=1.2 ALKALINE PHOSPHATASE (test code = 2204) 115 U/L 40-132 AST (test code = 2218) 15 U/L 9-40 ALT (test code = 2219) 12 U/L 5-40 LIPID [id number] 00:40:02* Test Item Value Reference Range Interpretation Comme nts CHOLESTEROL (test code = 2210) 164 MG/DL <200 TRIGLYCERIDES (test code = 2232) 284 MG/DL <150 H HDL CHOLESTEROL (test code = 2220) 44 MG/DL >39 CALC LDL CHOL (test code = 2237) 83 MG/DL <100 NOTE: CALCULATED LDL IS BASED ON DENISSE-REICH METHOD WHICHINCLUDES ADJUSTABLE TRIGLYCERIDE:VLDL CHOLESTEROL RATIO.THIS FACTOR VARIES BY MEASURED TRIGLYCERIDE AND NON-HDLCHOLESTEROL CONCENTRATIONS WITH INCREASED CALCULATED LDL SEENIN HIGHER TRIGLYCERIDE OR LOWER NON-HDL SPECIMENS. FOR MOREINFORMATION, SEE CLIENT ANNOUNCEMENT AT [email or web address] RATIO LDL/HDL (test code = 2238) 1.89 RATIO <3.22 COMPREHENSIVE METABOLIC [id number] 00:00:00* Test Item Value Reference Range Interpretation Comme nts GLUCOSE (test code = 2217) 101 MG/DL BUN (test code = 2208) 10 MG/DL CREATININE (test code = 2214) 0.69 MG/DL eGFR (2020 CKD-EPI) (test code = 99687) 104 ML/MIN/1.73 CALC BUN/CREAT (test code = 2235) 14 RATIO SODIUM (test code = 2231) 142 MEQ/L POTASSIUM (test code = 2228) 4.2 MEQ/L CHLORIDE (test code = 2215) 104 MEQ/L CARBON DIOXIDE (test code = 2206) 23 MEQ/L CALCIUM (test code = 2209) 9.8 MG/DL PROTEIN, TOTAL (test code = 2229) 6.8 G/DL ALBUMIN (test code = 2201) 4.3 G/DL CALC GLOBULIN (test code = 2240) 2.5 G/DL CALC A/G RATIO (test code = 2234) 1.7 RATIO BILIRUBIN, TOTAL (test code = 2207) <0.2 MG/DL ALKALINE PHOSPHATASE (test code = 2204) 115 U/L AST (test code = 2218) 15 U/L ALT (test code = 2219) 12 U/L Shmuel Ferguson, THIRD [id number] 00:00:00* Test Item Value Reference Range Interpretation Comme nts TSH, THIRD GENERATION (test code = 2821) 1.210 UIU/ML Shmuel GriffithLIPID [id number] 00:00:00* Test Item Value Reference Range Interpretation Comme nts CHOLESTEROL (test code = 2210) 164 MG/DL TRIGLYCERIDES (test code = 2232) 284 MG/DL HDL CHOLESTEROL (test code = 2220) 44 MG/DL CALC LDL CHOL (test code = 2237) 83 MG/DL RISK RATIO LDL/HDL (test cod e = 2238) 1.89 RATIO Shmuel GriffithCBC W/AUTO DIFF WITH [id number] 08:21:00* Test Item Value Reference Range Interpretation Comme nts WBC (test code = 1001) 8.5 K/UL 3.5-11.0 RBC (test code = 1002) 4.51 M/UL 3.80-5.40 HEMOGLOBIN (test code = 1003) 14.4 G/DL 11.5-15.5 HEMATOCRIT (test code = 1004) 42.7 % 34.0-45.0 MCV (test code = 1005) 94.7 fL 80.0-99.0 MCH (test code = 1006) 31.9 PG 25.0-33.0 MCHC (test code = 1007) 33.7 G/DL 31.0-36.0 RDW (test code = 1038) 12.8 % 11.5-15.0 NEUTROPHILS (test code = 1008) 47.9 % AUTOMATED DIFFERENTIAL CONFIRMED WITH MANUAL SLIDE REVIEW. LYMPHOCYTES (test code = 1010) 33.2 % MONOCYTES (test code = 1011) 8.7 % EOSINOPHILS (test code = 1012) 3.5 % BASOPHILS (test code = 1013) 0.9 % IMMATURE GRANULOCYTES (test code = 1036) 5.8 % NUCLEATED RBCS (test code = 1065) 0.0 /100 WBC'S See_Comment [Automated message] The system which generated this result transmitted reference range: 0.0. The reference range was not used to interpret this result as normal/abnormal. PLATELET COUNT (test code = 1015) 243 K/UL 130-400 ABSOLUTE NEUTROPHILS (test code = 1066) 4.04 K/UL 1.50-7.50 ABSOLUTE LYMPHOCYTES (test code = 1067) 2.81 K/UL 1.00-4.00 ABSOLUTE MONOCYTES (test code = 1068) 0.74 K/UL 0.20-1.00 ABSOLUTE EOSINOPHILS (test code = 1040) 0.30 K/UL 0.00-0.50 ABSOLUTE BASOPHILS (test code = 1069) 0.08 K/UL 0.00-0.20 ABS IMMATURE GRANULOCYTES (test code = 1020) 0.49 K/UL 0.00-0.10 H ABS NUCLEATED RBCS (test code = 92899) 0.00 K/UL 0.00-0.11 COMMENTS (test code = 1016) (NOTE) NO SPECIFIC RBC ABNORMALITIES IDENTIFIED PLATELETS APPEAR NORMAL CBC W/AUTO [id number] 00:00:00* Test Item Value Reference Range Interpretation Comme nts WBC (test code = 1001) 8.5 K/UL RBC (test code = 1002) 4.51 M/UL HEMOGLOBIN (test code = 1003) 14.4 G/DL HEMATOCRIT (test code = 1004) 42.7 % MCV (test code = 1005) 94.7 fL MCH (test code = 1006) 31.9 PG MCHC (test code = 1007) 33.7 G/DL RDW (test code = 1038) 12.8 % NEUTROPHILS (test code = 1008) 47.9 % LYMPHOCYTES (test code = 1010) 33.2 % MONOCYTES (test code = 1011) 8.7 % EOSINOPHILS (test code = 1012) 3.5 % BASOPHILS (test code = 1013) 0.9 % IMMATURE GRANULOCYTES (test code = 1036) 5.8 % NUCLEATED RBCS (test code = 1065) 0.0 /100WBC'S PLATELET COUNT (test code = 1015) 243 K/UL ABSOLUTE NEUTROPHILS (test c ode = 1066) 4.04 K/UL ABSOLUTE LYMPHOCYTES (test c ode = 1067) 2.81 K/UL ABSOLUTE MONOCYTES (test cod e = 1068) 0.74 K/UL ABSOLUTE EOSINOPHILS (test c ode = 1040) 0.30 K/UL ABSOLUTE BASOPHILS (test cod e = 1069) 0.08 K/UL ABS IMMATURE GRANULOCYTES (t est code = 1020) 0.49 K/UL ABS NUCLEATED RBCS (test cod e = 00185) 0.00 K/UL COMMENTS (test code = 1016) (NOTE) Shmuel GriffithCOMPREHENSIVE METABOLIC [id number] 04:39:15* Test Item Value Reference Range Interpretation Comme nts GLUCOSE (test code = 2217) 132 MG/DL 70-99 H BUN (test code = 220) 9 MG/DL 6-20 CREATININE (test code = 2214) 0.64 MG/DL 0.60-1.30 eGFR (2020 CKD-EPI) (test code = 36398) 106 ML/MIN/1.73 >60 CALC BUN/CREAT (test code = 2235) 14 RATIO 6-28 SODIUM (test code = 223) 138 MEQ/L 133-146 POTASSIUM (test code = 2228) 4.1 MEQ/L 3.5-5.4 CHLORIDE (test code = 2215) 102 MEQ/L 95-107 CARBON DIOXIDE (test code = 2206) 23 MEQ/L 19-31 CALCIUM (test code = 2209) 9.8 MG/DL 8.5-10.5 PROTEIN, TOTAL (test code = 222) 7.0 G/DL 6.1-8.3 ALBUMIN (test code = 2201) 4.6 G/DL 3.5-5.2 CALC GLOBULIN (test code = 2240) 2.4 G/DL 1.9-3.7 CALC A/G RATIO (test code = 2234) 1.9 RATIO 1.0-2.6 BILIRUBIN, TOTAL (test code = 220) 0.2 MG/DL <=1.2 ALKALINE PHOSPHATASE (test code = 2204) 109 U/L 40-132 AST (test code = 2218) 18 U/L 9-40 ALT (test code = 2219) 18 U/L 5-40 LIPID [id number] 04:39:15* Test Item Value Reference Range Interpretation Comme nts CHOLESTEROL (test code = 2210) 163 MG/DL <200 TRIGLYCERIDES (test code = 2232) 272 MG/DL <150 H HDL CHOLESTEROL (test code = 2220) 41 MG/DL >39 CALC LDL CHOL (test code = 2237) 86 MG/DL <100 NOTE: CALCULATED LDL IS BASED ON DENISSE-REICH METHOD WHICHINCLUDES ADJUSTABLE TRIGLYCERIDE:VLDL CHOLESTEROL RATIO.THIS FACTOR VARIES BY MEASURED TRIGLYCERIDE AND NON-HDLCHOLESTEROL CONCENTRATIONS WITH INCREASED CALCULATED LDL SEENIN HIGHER TRIGLYCERIDE OR LOWER NON-HDL SPECIMENS. FOR MOREINFORMATION, SEE CLIENT ANNOUNCEMENT AT [email or web address] RISK RATIO LDL/HDL (test code = 2238) 2.10 RATIO <3.22 HEMOGLOBIN [id number] 03:32:15* Test Item Value Reference Range Interpretation Comme nts HEMOGLOBIN A1c (test code = 01300) 6.1 % 4.2-5.6 H [employer] GUIDELINES FOR HGB A1C: PREDIABETES/INCREASED RISK . . . . . . . 5.7-6.4% DIAGNOSIS OF DIABETES . . . . . . . . . >=6.5% WITH CONFIRMATION OR APPROPRIATE SYMPTOMS NOTE: ASSAY MAY BE AFFECTED BY HEMOGLOBINOPATHIES (SICKLE CELL ANEMIA, S-C DISEASE, OTHERS) OR ARTIFICIALLY LOWERED BY DECREASED RED CELL SURVIVAL (HEMOLYTIC ANEMIAS, BLOOD LOSS, ETC.). CONSIDER ALTERNATE TESTING OR LABORATORY CONSULTATION. UNLESS OTHERWISE INDICATED, ALL TESTING PERFORMED AT [facility] [address] [place] [address] WAST[employer] W[employer] OPERATOR: ESTEVAN ZELAYA M.D. [place] NUMBER [id number] [facility] [place]. [id number] LIPID [id number] 00:00:00* Test Item Value Reference Range Interpretation Comme nts CHOLESTEROL (test code = 2210) 163 MG/DL TRIGLYCERIDES (test code = 2232) 272 MG/DL HDL CHOLESTEROL (test code = 2220) 41 MG/DL CALC LDL CHOL (test code = 2237) 86 MG/DL RISK RATIO LDL/HDL (test cod e = 2238) 2.10 RATIO Shmuel GriffithHEMOGLOBIN [id number] 00:00:00* Test Item Value Reference Range Interpretation Comme nts HEMOGLOBIN A1c (test code = 50333) 6.1 % Shmuel GriffithCOMPREHENSIVE METABOLIC [id number] 00:00:00* Test Item Value Reference Range Interpretation Comme nts GLUCOSE (test code = 2217) 132 MG/DL BUN (test code = 2208) 9 MG/DL CREATININE (test code = 2214) 0.64 MG/DL eGFR (2020 CKD-EPI) (test code = 71734) 106 ML/MIN/1.73 CALC BUN/CREAT (test code = 2235) 14 RATIO SODIUM (test code = 2231) 138 MEQ/L POTASSIUM (test code = 2228) 4.1 MEQ/L CHLORIDE (test code = 2215) 102 MEQ/L CARBON DIOXIDE (test code = 2206) 23 MEQ/L CALCIUM (test code = 2209) 9.8 MG/DL PROTEIN, TOTAL (test code = 2229) 7.0 G/DL ALBUMIN (test code = 2201) 4.6 G/DL CALC GLOBULIN (test code = 2240) 2.4 G/DL CALC A/G RATIO (test code = 2234) 1.9 RATIO BILIRUBIN, TOTAL (test code = 2207) 0.2 MG/DL ALKALINE PHOSPHATASE (test code = 2204) 109 U/L AST (test code = 2218) 18 U/L ALT (test code = 2219) 18 U/L Shmuel GriffithLIPID [id number] 00:00:00* Test Item Value Reference Range Interpretation Comme nts CHOLESTEROL (test code = 2210) 163 MG/DL TRIGLYCERIDES (test code = 2232) 272 MG/DL HDL CHOLESTEROL (test code = 2220) 41 MG/DL CALC LDL CHOL (test code = 2237) 86 MG/DL RISK RATIO LDL/HDL (test cod e = 2238) 2.10 RATIO Shmuel GriffithHEMOGLOBIN [id number] 00:00:00* Test Item Value Reference Range Interpretation Comme nts HEMOGLOBIN A1c (test code = 38267) 6.1 % Shmuel GriffithCOMPREHENSIVE METABOLIC [id number] 00:00:00* Test Item Value Reference Range Interpretation Comme nts GLUCOSE (test code = 2217) 132 MG/DL BUN (test code = 2208) 9 MG/DL CREATININE (test code = 2214) 0.64 MG/DL eGFR (2020 CKD-EPI) (test code = 66031) 106 ML/MIN/1.73 CALC BUN/CREAT (test code = 2235) 14 RATIO SODIUM (test code = 2231) 138 MEQ/L POTASSIUM (test code = 2228) 4.1 MEQ/L CHLORIDE (test code = 2215) 102 MEQ/L CARBON DIOXIDE (test code = 2206) 23 MEQ/L CALCIUM (test code = 2209) 9.8 MG/DL PROTEIN, TOTAL (test code = 2229) 7.0 G/DL ALBUMIN (test code = 2201) 4.6 G/DL CALC GLOBULIN (test code = 2240) 2.4 G/DL CALC A/G RATIO (test code = 2234) 1.9 RATIO BILIRUBIN, TOTAL (test code = 2207) 0.2 MG/DL ALKALINE PHOSPHATASE (test code = 2204) 109 U/L AST (test code = 2218) 18 U/L ALT (test code = 2219) 18 U/L Shmuel GriffithLIPID [id number] 00:00:00* Test Item Value Reference Range Interpretation Comme nts CHOLESTEROL (test code = 2210) 163 MG/DL TRIGLYCERIDES (test code = 2232) 272 MG/DL HDL CHOLESTEROL (test code = 2220) 41 MG/DL CALC LDL CHOL (test code = 2237) 86 MG/DL RISK RATIO LDL/HDL (test cod e = 2238) 2.10 RATIO Shmuel GriffithHEMOGLOBIN [id number] 00:00:00* Test Item Value Reference Range Interpretation Comme nts HEMOGLOBIN A1c (test code = 44609) 6.1 % Shmuel GriffithCOMPREHENSIVE METABOLIC [id number] 00:00:00* Test Item Value Reference Range Interpretation Comme nts GLUCOSE (test code = 2217) 132 MG/DL BUN (test code = 2208) 9 MG/DL CREATININE (test code = 2214) 0.64 MG/DL eGFR (2020 CKD-EPI) (test code = 64572) 106 ML/MIN/1.73 CALC BUN/CREAT (test code = 2235) 14 RATIO SODIUM (test code = 2231) 138 MEQ/L POTASSIUM (test code = 2228) 4.1 MEQ/L CHLORIDE (test code = 2215) 102 MEQ/L CARBON DIOXIDE (test code = 2206) 23 MEQ/L CALCIUM (test code = 2209) 9.8 MG/DL PROTEIN, TOTAL (test code = 2229) 7.0 G/DL ALBUMIN (test code = 2201) 4.6 G/DL CALC GLOBULIN (test code = 2240) 2.4 G/DL CALC A/G RATIO (test code = 2234) 1.9 RATIO BILIRUBIN, TOTAL (test code = 2207) 0.2 MG/DL ALKALINE PHOSPHATASE (test code = 2204) 109 U/L AST (test code = 2218) 18 U/L ALT (test code = 2219) 18 U/L Shmuel Ferguson THIRD [id number] 00:00:00* Test Item Value Reference Range Interpretation Comme nts TSH, THIRD GENERATION (test code = 2821) 1.120 UIU/ML Shmuel Ferguson THIRD [id number] 00:00:00* Test Item Value Reference Range Interpretation Comme nts TSH, THIRD GENERATION (test code = 2821) 1.120 UIU/ML Shmuel Ferguson THIRD [id number] 00:00:00* Test Item Value Reference Range Interpretation Comme nts TSH, THIRD GENERATION (test code = 2821) 1.120 UIU/ML Shmuel GriffithHEMOGLOBIN [id number] 00:00:00* Test Item Value Reference Range Interpretation Comme [facility] HEMOGLOBIN A1c (test code = 55354) 5.9 % Shmuel GriffithHEMOGLOBIN [id number] 00:00:00* Test Item Value Reference Range Interpretation Comme [facility] HEMOGLOBIN A1c (test code = 21421) 5.9 % Shmuel GriffithHEMOGLOBIN [id number] 00:00:00* Test Item Value Reference Range Interpretation Comme pedro HEMOGLOBIN A1c (test code = 09534) 5.9 % BLANK [id number] 14:23:45SPECIMEN NUMBER: [id number] CULTURE, URINE SPECIMEN NUMBER: [id number] SPECIMEN COMMENT: URINE SOURCE: URINE REPORT STATUS: FINAL ISOLATE NUMBER 1: ORGANISM: 03/16/2023 50-100,000 CFU/ML GRAM NEGATIVEBACILLI IDENTIFICATION: 03/18/2023 ESCHERICHIA COLI E. COLI AMOXICILLIN/CA SENSITIVE <=8/4AMPICILLIN RESISTANT >16CEFAZOLIN SENSITIVE 4CEFTRIAXONE SENSITIVE <=1CIPROFLOXACIN RESISTANT >2LEVOFLOXACIN RESISTANT >4NITROFURANTOIN SENSITIVE <=32PIP/TAZOBAC SENSITIVE <=16TETRACYCLINE SENSITIVE <=4TOBRAMYCIN SENSITIVE <=4TRIMETH/SULFA SENSITIVE <=2/38 NOTE:NUMBERS DISPLAYED REPRESENT MINIMUM INHIBITORY CONCENTRATION (LUIS) WHICH IS EXPRESSED IN MCG/ML. [facility] has important pathology staff changes effective 01/19/2023. New pathology staff will provide uninterrupted, excellent patient care and clinical consultation. See URL: [email or web address]. UNLESS OTHERWISE INDICATED, ALL TESTING PERFORMED AT [facility] [address] [place] [address] [employer] W[employer] OPERATOR: ESTEVAN ZELAYA M.D. [place] NUMBER [id number] [facility] [place] [id number], [id number] 00:00:00* Test Item Value Reference Range Interpretation Comme nts CULTURE, URINE (test code = 75625) SPECIMEN NUMBER: [id number] Shmuel GriffithCULTURE, [id number] 00:00:00* Test Item Value Reference Range Interpretation Comme nts CULTURE, URINE (test code = 65613) SPECIMEN NUMBER: [id number] Shmuel GriffithCULTURE, [id number] 00:00:00* Test Item Value Reference Range Interpretation Comme nts CULTURE, URINE (test code = 11486) SPECIMEN NUMBER: [id number] Shmuel GriffithHEMOGLOBIN [id number] 02:47:15* Test Item Value Reference Range Interpretation Comme nts HEMOGLOBIN A1c (test code = 26731) 6.1 % 4.2-5.6 H [employer] GUIDELINES FOR HGB A1C: PREDIABETES/INCREASED RISK . . . . . . . 5.7-6.4% DIAGNOSIS OF DIABETES . . . . . . . . . >=6.5% WITH CONFIRMATION OR APPROPRIATE SYMPTOMS NOTE: ASSAY MAY BE AFFECTED BY HEMOGLOBINOPATHIES (SICKLE CELL ANEMIA, S-C DISEASE, OTHERS) OR ARTIFICIALLY LOWERED BY DECREASED RED CELL SURVIVAL (HEMOLYTIC ANEMIAS, BLOOD LOSS, ETC.). CONSIDER ALTERNATE TESTING OR LABORATORY CONSULTATION. [facility] has important pathology staff changes effective 01/19/2023. New pathology staff will provide uninterrupted, excellent patient care and clinical consultation. See URL: [email or web address]. UNLESS OTHERWISE INDICATED, ALL TESTING PERFORMED AT [facility] [address] [place] [address] W[employer] W[employer] OPERATOR: KHUSHBU BENJAMIN M.D. CLIA NUMBER [id number] [place]. [id number] HEMOGLOBIN [id number] 00:00:00* Test Item Value Reference Range Interpretation Comme [facility] HEMOGLOBIN A1c (test code = 15847) 6.1 % Shmuel GriffithHEMOGLOBIN [id number] 00:00:00* Test Item Value Reference Range Interpretation Comme [facility] HEMOGLOBIN A1c (test code = 20857) 6.1 % Shmuel Martin AustinHEMOGLOBIN [id number] 00:00:00* Test Item Value Reference Range Interpretation Comme [facility] HEMOGLOBIN A1c (test code = 91958) 6.1 % Shmuel GriffithVITAMIN [id number] 03:08:37* Test Item Value Reference Range Interpretation Comme [facility] VITAMIN B-12 (test code = 2840) 357 PG/ML 200-950 [facility] has impo rtant pathology staff changes effective 01/19/2023. New pathology staff will provide uninterrupted, excellent patient care and clinical consultation. See URL: [email or web address]. UNLESS OTHERWISE INDICATED, ALL TESTING PERFORMED AT [facility] [address] [place] [address] CLIA: [id number], CAP: [id number] VITAMIN D, 25 [id number] 03:08:06* Test Item Value Reference Range Interpretation Comme [facility] VITAMIN D, 25 OH (test code = 4958) 20 NG/ML SEE BELOW L EFFECTIVE 07/2023, PLEASE NOTE NEW METHODOLOGY IS ELECTROCHEMILUMINESCENCE BINDING ASSAY. NOTE: 25-HYDROXYVITAMIN D ASSAY INCLUDES 25-HYDROXYVITAMIN D2 AND D3. INTERPRETIVE RANGES PEDIATRIC (<17 YEARS) . . . . . . . . . . . NG/ML 20-100ADULT: INSUFFICIENT . . . . . . . . . . . . . . NG/ML <20 SUBOPTIMAL . . . . . . . . . . . . . . . NG/ML 20-29 OPTIMAL . . . . . . . . . . . . . . . . . NG/ML 30-100 COMPREHENSIVE METABOLIC [id number] 01:53:57* Test Item Value Reference Range Interpretation Comme nts GLUCOSE (test code = 2217) 106 MG/DL 70-99 H BUN (test code = 2207) 11 MG/DL 6-20 CREATININE (test code = 2213) 0.71 MG/DL 0.60-1.30 eGFR (2020 CKD-EPI) (test code = ) 103 ML/MIN/1.73 >60 CALC BUN/CREAT (test code = 2234) 15 RATIO 6-28 SODIUM (test code = 2230) 139 MEQ/L 133-146 POTASSIUM (test code = 2227) 4.7 MEQ/L 3.5-5.4 CHLORIDE (test code = 2214) 103 MEQ/L 95-107 CARBON DIOXIDE (test code = 2205) 24 MEQ/L 19-31 CALCIUM (test code = 2208) 9.6 MG/DL 8.5-10.5 PROTEIN, TOTAL (test code = 2228) 6.7 G/DL 6.1-8.3 ALBUMIN (test code = 2200) 4.4 G/DL 3.5-5.2 CALC GLOBULIN (test code = 2239) 2.3 G/DL 1.9-3.7 CALC A/G RATIO (test code = 2233) 1.9 RATIO 1.0-2.6 BILIRUBIN, TOTAL (test code = 2206) <0.2 MG/DL See_Comment [Automated me ssage] The system which generated this result transmitted reference range: <=1.2. The reference range was not used to interpret this result as normal/abnormal. ALKALINE PHOSPHATASE (test code = 2203) 109 U/L 40-130 AST (test code = 2217) 14 U/L 9-40 ALT (test code = 2218) 13 U/L 5-40 LIPID [id number] 01:53:57* Test Item Value Reference Range Interpretation Comme nts CHOLESTEROL (test code = 2209) 194 MG/DL <200 TRIGLYCERIDES (test code = 2232) 284 MG/DL <150 H HDL CHOLESTEROL (test code = 2219) 47 MG/DL >39 CALC LDL CHOL (test code = 2236) 106 MG/DL <100 H NOTE: CALCULATED LDL IS BASED ON DENISSE-REICH METHOD WHICHINCLUDES ADJUSTABLE TRIGLYCERIDE:VLDL CHOLESTEROL RATIO.THIS FACTOR VARIES BY MEASURED TRIGLYCERIDE AND NON-HDLCHOLESTEROL CONCENTRATIONS WITH INCREASED CALCULATED LDL SEENIN HIGHER TRIGLYCERIDE OR LOWER NON-HDL SPECIMENS. FOR MOREINFORMATION, SEE CLIENT ANNOUNCEMENT AT [email or web address] RISK RATIO LDL/HDL (test code = 2238) 2.26 RATIO <3.22 VITAMIN D, 25 [id number] 00:00:00* Test Item Value Reference Range Interpretation Comme [facility] VITAMIN D, 25 OH (test code = 4958) 20 NG/ML Shmuel GriffithVITAMIN [id number] 00:00:00* Test Item Value Reference Range Interpretation Comme [facility] VITAMIN B-12 (test code = 2840) 357 PG/ML Shmuel GriffithCOMPREHENSIVE METABOLIC [id number] 00:00:00* Test Item Value Reference Range Interpretation Comme nts GLUCOSE (test code = 2217) 106 MG/DL BUN (test code = 2208) 11 MG/DL CREATININE (test code = 2214) 0.71 MG/DL eGFR (2020 CKD-EPI) (test code = 83352) 103 ML/MIN/1.73 CALC BUN/CREAT (test code = 2235) 15 RATIO SODIUM (test code = 2231) 139 MEQ/L POTASSIUM (test code = 2228) 4.7 MEQ/L CHLORIDE (test code = 2215) 103 MEQ/L CARBON DIOXIDE (test code = 2206) 24 MEQ/L CALCIUM (test code = 2209) 9.6 MG/DL PROTEIN, TOTAL (test code = 2229) 6.7 G/DL ALBUMIN (test code = 2201) 4.4 G/DL CALC GLOBULIN (test code = 2240) 2.3 G/DL CALC A/G RATIO (test code = 2234) 1.9 RATIO BILIRUBIN, TOTAL (test code = 2207) <0.2 MG/DL ALKALINE PHOSPHATASE (test code = 2204) 109 U/L AST (test code = 2218) 14 U/L ALT (test code = 2219) 13 U/L Shmuel GriffithLIPID [id number] 00:00:00* Test Item Value Reference Range Interpretation Comme nts CHOLESTEROL (test code = 2210) 194 MG/DL TRIGLYCERIDES (test code = 2232) 284 MG/DL HDL CHOLESTEROL (test code = 2220) 47 MG/DL CALC LDL CHOL (test code = 2237) 106 MG/DL RISK RATIO LDL/HDL (test cod e = 2238) 2.26 RATIO Shmuel GriffithVITAMIN D, 25 [id number] 00:00:00* Test Item Value Reference Range Interpretation Comme [facility] VITAMIN D, 25 OH (test code = 4958) 20 NG/ML Shmuel GriffithVITAMIN [id number] 00:00:00* Test Item Value Reference Range Interpretation Comme [facility] VITAMIN B-12 (test code = 2840) 357 PG/ML Shmuel GriffithCOMPREHENSIVE METABOLIC [id number] 00:00:00* Test Item Value Reference Range Interpretation Comme nts GLUCOSE (test code = 2217) 106 MG/DL BUN (test code = 2208) 11 MG/DL CREATININE (test code = 2214) 0.71 MG/DL eGFR (2020 CKD-EPI) (test code = 39456) 103 ML/MIN/1.73 CALC BUN/CREAT (test code = 2235) 15 RATIO SODIUM (test code = 2231) 139 MEQ/L POTASSIUM (test code = 2228) 4.7 MEQ/L CHLORIDE (test code = 2215) 103 MEQ/L CARBON DIOXIDE (test code = 2206) 24 MEQ/L CALCIUM (test code = 2209) 9.6 MG/DL PROTEIN, TOTAL (test code = 2229) 6.7 G/DL ALBUMIN (test code = 2201) 4.4 G/DL CALC GLOBULIN (test code = 2240) 2.3 G/DL CALC A/G RATIO (test code = 2234) 1.9 RATIO BILIRUBIN, TOTAL (test code = 2207) <0.2 MG/DL ALKALINE PHOSPHATASE (test code = 2204) 109 U/L AST (test code = 2218) 14 U/L ALT (test code = 2219) 13 U/L Shmuel GriffithLIPID [id number] 00:00:00* Test Item Value Reference Range Interpretation Comme nts CHOLESTEROL (test code = 2210) 194 MG/DL TRIGLYCERIDES (test code = 2232) 284 MG/DL HDL CHOLESTEROL (test code = 2220) 47 MG/DL CALC LDL CHOL (test code = 2237) 106 MG/DL RISK RATIO LDL/HDL (test cod e = 2238) 2.26 RATIO Shmuel GriffithVITAMIN D, 25 [id number] 00:00:00* Test Item Value Reference Range Interpretation Comme [facility] VITAMIN D, 25 OH (test code = 4958) 20 NG/ML Shmuel GriffithVITAMIN [id number] 00:00:00* Test Item Value Reference Range Interpretation Comme [facility] VITAMIN B-12 (test code = 2840) 357 PG/ML Shmuel GriffithCOMPREHENSIVE METABOLIC [id number] 00:00:00* Test Item Value Reference Range Interpretation Comme nts GLUCOSE (test code = 2217) 106 MG/DL BUN (test code = 2208) 11 MG/DL CREATININE (test code = 2214) 0.71 MG/DL eGFR (2020 CKD-EPI) (test code = 43046) 103 ML/MIN/1.73 CALC BUN/CREAT (test code = 2235) 15 RATIO SODIUM (test code = 2231) 139 MEQ/L POTASSIUM (test code = 2228) 4.7 MEQ/L CHLORIDE (test code = 2215) 103 MEQ/L CARBON DIOXIDE (test code = 2206) 24 MEQ/L CALCIUM (test code = 2209) 9.6 MG/DL PROTEIN, TOTAL (test code = 2229) 6.7 G/DL ALBUMIN (test code = 2201) 4.4 G/DL CALC GLOBULIN (test code = 2240) 2.3 G/DL CALC A/G RATIO (test code = 2234) 1.9 RATIO BILIRUBIN, TOTAL (test code = 2207) <0.2 MG/DL ALKALINE PHOSPHATASE (test code = 2204) 109 U/L AST (test code = 2218) 14 U/L ALT (test code = 2219) 13 U/L Shmuel GriffithLIPID [id number] 00:00:00* Test Item Value Reference Range Interpretation Comme nts CHOLESTEROL (test code = 2210) 194 MG/DL TRIGLYCERIDES (test code = 2232) 284 MG/DL HDL CHOLESTEROL (test code = 2220) 47 MG/DL CALC LDL CHOL (test code = 2237) 106 MG/DL RISK RATIO LDL/HDL (test cod e = 2238) 2.26 RATIO Shmuel GriffithCBC W/AUTO DIFF WITH [id number] 03:53:28* Test Item Value Reference Range Interpretation Comme nts WBC (test code = 1001) 11.4 K/UL 3.5-11.0 H RBC (test code = 1002) 4.52 M/UL 3.80-5.40 HEMOGLOBIN (test code = 1003) 14.6 G/DL 11.5-15.5 HEMATOCRIT (test code = 1004) 41.9 % 34.0-45.0 MCV (test code = 1005) 92.7 fL 80.0-99.0 MCH (test code = 1006) 32.3 PG 25.0-33.0 MCHC (test code = 1007) 34.8 G/DL 31.0-36.0 RDW (test code = 1038) 12.4 % 11.5-15.0 NEUTROPHILS (test code = 1008) 62.2 % LYMPHOCYTES (test code = 1010) 28.3 % MONOCYTES (test code = 1011) 5.6 % EOSINOPHILS (test code = 1012) 3.2 % BASOPHILS (test code = 1013) 0.5 % IMMATURE GRANULOCYTES (test code = 1036) 0.2 % NUCLEATED RBCS (test code = 1065) 0.0 /100 WBC'S See_Comment [Automated messa ge] The system which generated this result transmitted reference range: 0.0. The reference range was not used to interpret this result as normal/abnormal. PLATELET COUNT (test code = 1015) 280 K/UL 130-400 ABSOLUTE NEUTROPHILS (test code = 1066) 7.06 K/UL 1.50-7.50 ABSOLUTE LYMPHOCYTES (test code = 1067) 3.22 K/UL 1.00-4.00 ABSOLUTE MONOCYTES (test code = 1068) 0.64 K/UL 0.20-1.00 ABSOLUTE EOSINOPHILS (test code = 1040) 0.36 K/UL 0.00-0.50 ABSOLUTE BASOPHILS (test code = 1069) 0.06 K/UL 0.00-0.20 ABS IMMATURE GRANULOCYTES (test code = 1020) 0.02 K/UL 0.00-0.10 ABS NUCLEATED RBCS (test code = 43499) 0.00 K/UL 0.00-0.11 CBC W/AUTO [id number] 00:00:00* Test Item Value Reference Range Interpretation Comme nts WBC (test code = 1001) 11.4 K/UL RBC (test code = 1002) 4.52 M/UL HEMOGLOBIN (test code = 1003) 14.6 G/DL HEMATOCRIT (test code = 1004) 41.9 % MCV (test code = 1005) 92.7 fL MCH (test code = 1006) 32.3 PG MCHC (test code = 1007) 34.8 G/DL RDW (test code = 1038) 12.4 % NEUTROPHILS (test code = 1008) 62.2 % LYMPHOCYTES (test code = 1010) 28.3 % MONOCYTES (test code = 1011) 5.6 % EOSINOPHILS (test code = 1012) 3.2 % BASOPHILS (test code = 1013) 0.5 % IMMATURE GRANULOCYTES (test code = 1036) 0.2 % NUCLEATED RBCS (test code = 1065) 0.0 /100WBC'S PLATELET COUNT (test code = 1015) 280 K/UL ABSOLUTE NEUTROPHILS (test c ode = 1066) 7.06 K/UL ABSOLUTE LYMPHOCYTES (test c ode = 1067) 3.22 K/UL ABSOLUTE MONOCYTES (test cod e = 1068) 0.64 K/UL ABSOLUTE EOSINOPHILS (test c ode = 1040) 0.36 K/UL ABSOLUTE BASOPHILS (test cod e = 1069) 0.06 K/UL ABS IMMATURE GRANULOCYTES (t est code = 1020) 0.02 K/UL ABS NUCLEATED RBCS (test cod e = 73729) 0.00 K/UL [facility] W/AUTO [id number] 00:00:00* Test Item Value Reference Range Interpretation Comme nts WBC (test code = 1001) 11.4 K/UL RBC (test code = 1002) 4.52 M/UL HEMOGLOBIN (test code = 1003) 14.6 G/DL HEMATOCRIT (test code = 1004) 41.9 % MCV (test code = 1005) 92.7 fL MCH (test code = 1006) 32.3 PG MCHC (test code = 1007) 34.8 G/DL RDW (test code = 1038) 12.4 % NEUTROPHILS (test code = 1008) 62.2 % LYMPHOCYTES (test code = 1010) 28.3 % MONOCYTES (test code = 1011) 5.6 % EOSINOPHILS (test code = 1012) 3.2 % BASOPHILS (test code = 1013) 0.5 % IMMATURE GRANULOCYTES (test code = 1036) 0.2 % NUCLEATED RBCS (test code = 1065) 0.0 /100WBC'S PLATELET COUNT (test code = 1015) 280 K/UL ABSOLUTE NEUTROPHILS (test c ode = 1066) 7.06 K/UL ABSOLUTE LYMPHOCYTES (test c ode = 1067) 3.22 K/UL ABSOLUTE MONOCYTES (test cod e = 1068) 0.64 K/UL ABSOLUTE EOSINOPHILS (test c ode = 1040) 0.36 K/UL ABSOLUTE BASOPHILS (test cod e = 1069) 0.06 K/UL ABS IMMATURE GRANULOCYTES (t est code = 1020) 0.02 K/UL ABS NUCLEATED RBCS (test cod e = 01272) 0.00 K/UL [facility]AUT[facility] [id number] 00:00:00* Test Item Value Reference Range Interpretation Comme nts WBC (test code = 1001) 11.4 K/UL RBC (test code = 1002) 4.52 M/UL HEMOGLOBIN (test code = 1003) 14.6 G/DL HEMATOCRIT (test code = 1004) 41.9 % MCV (test code = 1005) 92.7 fL MCH (test code = 1006) 32.3 PG MCHC (test code = 1007) 34.8 G/DL RDW (test code = 1038) 12.4 % NEUTROPHILS (test code = 1008) 62.2 % LYMPHOCYTES (test code = 1010) 28.3 % MONOCYTES (test code = 1011) 5.6 % EOSINOPHILS (test code = 1012) 3.2 % BASOPHILS (test code = 1013) 0.5 % IMMATURE GRANULOCYTES (test code = 1036) 0.2 % NUCLEATED RBCS (test code = 1065) 0.0 /100WBC'S PLATELET COUNT (test code = 1015) 280 K/UL ABSOLUTE NEUTROPHILS (test c ode = 1066) 7.06 K/UL ABSOLUTE LYMPHOCYTES (test c ode = 1067) 3.22 K/UL ABSOLUTE MONOCYTES (test cod e = 1068) 0.64 K/UL ABSOLUTE EOSINOPHILS (test c ode = 1040) 0.36 K/UL ABSOLUTE BASOPHILS (test cod e = 1069) 0.06 K/UL ABS IMMATURE GRANULOCYTES (t est code = 1020) 0.02 K/UL ABS NUCLEATED RBCS (test cod e = 08893) 0.00 K/UL Shmuel Ferguson, THIRD [id number] 05:03:02* Test Item Value Reference Range Interpretation Comme nts TSH, THIRD GENERATION (test code = 2821) 1.820 UIU/ML 0.400-4.100 UNLESS OTHERWISE INDICATED, ALL TESTING PERFORMED [facility] [address] [place] [address] [employer] WATER OPERATOR: KHUSHBU BENJAMIN M.D. CLIA NUMBER [id number] [facility] [place]. [id number] COMPREHENSIVE METABOLIC [id number] 04:36:14* Test Item Value Reference Range Interpretation Comme nts GLUCOSE (test code = 2217) 95 MG/DL 70-99 BUN (test code = 2208) 9 MG/DL 6-20 CREATININE (test code = 2214) 0.61 MG/DL 0.60-1.30 eGFR (2020 CKD-EPI) (test code = 57280) 109 ML/MIN/1.73 >60 CALC BUN/CREAT (test code = 2235) 15 RATIO 6-28 SODIUM (test code = 2231) 139 MEQ/L 133-146 POTASSIUM (test code = 2228) 4.4 MEQ/L 3.5-5.4 CHLORIDE (test code = 2215) 103 MEQ/L 95-107 CARBON DIOXIDE (test code = 2206) 23 MEQ/L 19-31 CALCIUM (test code = 2209) 9.7 MG/DL 8.5-10.5 PROTEIN, TOTAL (test code = 2229) 6.8 G/DL 6.1-8.3 ALBUMIN (test code = 2201) 4.5 G/DL 3.5-5.2 CALC GLOBULIN (test code = 2240) 2.3 G/DL 1.9-3.7 CALC A/G RATIO (test code = 2234) 2.0 RATIO 1.0-2.6 BILIRUBIN, TOTAL (test code = 2207) 0.3 MG/DL See_Comment [Automated me ssage] The system which generated this result transmitted reference range: <=1.2. The reference range was not used to interpret this result as normal/abnormal. ALKALINE PHOSPHATASE (test code = 2204) 97 U/L 40-128 AST (test code = 2218) 13 U/L 9-40 ALT (test code = 2219) 15 U/L 5-40 LIPID [id number] 04:36:14* Test Item Value Reference Range Interpretation Comme nts CHOLESTEROL (test code = 2210) 190 MG/DL <200 TRIGLYCERIDES (test code = 2232) 217 MG/DL <150 H HDL CHOLESTEROL (test code = 2220) 46 MG/DL >39 CALC LDL CHOL (test code = 2237) 110 MG/DL <100 H NOTE: CALCULATED LDL IS BASED ON DENISSE-REICH METHOD WHICHINCLUDES ADJUSTABLE TRIGLYCERIDE:VLDL CHOLESTEROL RATIO.THIS FACTOR VARIES BY MEASURED TRIGLYCERIDE AND NON-HDLCHOLESTEROL CONCENTRATIONS WITH INCREASED CALCULATED LDL SEENIN HIGHER TRIGLYCERIDE OR LOWER NON-HDL SPECIMENS. FOR MOREINFORMATION, SEE CLIENT ANNOUNCEMENT AT [email or web address] RISK RATIO LDL/HDL (test code = 2238) 2.39 RATIO <3.22 CBC W/AUTO DIFF WITH [id number] 03:33:13* Test Item Value Reference Range Interpretation Comme nts WBC (test code = 1001) 8.7 K/UL 3.5-11.0 RBC (test code = 1002) 4.42 M/UL 3.80-5.40 HEMOGLOBIN (test code = 1003) 14.5 G/DL 11.5-15.5 HEMATOCRIT (test code = 1004) 40.4 % 34.0-45.0 MCV (test code = 1005) 91.4 fL 80.0-99.0 MCH (test code = 1006) 32.8 PG 25.0-33.0 MCHC (test code = 1007) 35.9 G/DL 31.0-36.0 RDW (test code = 1038) 12.6 % 11.5-15.0 NEUTROPHILS (test code = 1008) 59.3 % LYMPHOCYTES (test code = 1010) 29.8 % MONOCYTES (test code = 1011) 5.7 % EOSINOPHILS (test code = 1012) 4.0 % BASOPHILS (test code = 1013) 0.7 % IMMATURE GRANULOCYTES (test code = 1036) 0.5 % NUCLEATED RBCS (test code = 1065) 0.0 /100 WBC'S See_Comment [Automated numberFirea ge] The system which generated this result transmitted reference range: 0.0. The reference range was not used to interpret this result as normal/abnormal. PLATELET COUNT (test code = 1015) 277 K/UL 130-400 ABSOLUTE NEUTROPHILS (test code = 1066) 5.17 K/UL 1.50-7.50 ABSOLUTE LYMPHOCYTES (test code = 1067) 2.60 K/UL 1.00-4.00 ABSOLUTE MONOCYTES (test code = 1068) 0.50 K/UL 0.20-1.00 ABSOLUTE EOSINOPHILS (test code = 1040) 0.35 K/UL 0.00-0.50 ABSOLUTE BASOPHILS (test code = 1069) 0.06 K/UL 0.00-0.20 ABS IMMATURE GRANULOCYTES (test code = 1020) 0.04 K/UL 0.00-0.10 ABS NUCLEATED RBCS (test code = 68683) 0.00 K/UL 0.00-0.11 LIPID [id number] 00:00:00* Test Item Value Reference Range Interpretation Comme nts CHOLESTEROL (test code = 2210) 190 MG/DL TRIGLYCERIDES (test code = 2232) 217 MG/DL HDL CHOLESTEROL (test code = 2220) 46 MG/DL CALC LDL CHOL (test code = 2237) 110 MG/DL RISK RATIO LDL/HDL (test cod e = 2238) 2.39 RATIO Shmuel Martin [id number] 00:00:00* Test Item Value Reference Range Interpretation Comme nts TSH, THIRD GENERATION (test code = 2821) 1.820 UIU/ML Shmuel Mario NachoCBC W/AUTO [id number] 00:00:00* Test Item Value Reference Range Interpretation Comme nts WBC (test code = 1001) 8.7 K/UL [...] = 1013) 0.7 % IMMATURE GRANULOCYTES (test code = 1036) 0.5 % NUCLEATED RBCS (test code = 1065) 0.0 /100WBC'S PLATELET COUNT (test code = 1015) 277 K/UL ABSOLUTE NEUTROPHILS (test c ode = 1066) 5.17 K/UL ABSOLUTE LYMPHOCYTES (test c ode = 1067) 2.60 K/UL ABSOLUTE MONOCYTES (test cod e = 1068) 0.50 K/UL ABSOLUTE EOSINOPHILS (test c ode = 1040) 0.35 K/UL ABSOLUTE BASOPHILS (test cod e = 1069) 0.06 K/UL ABS IMMATURE GRANULOCYTES (t est code = 1020) 0.04 K/UL ABS NUCLEATED RBCS (test cod e = 14012) 0.00 K/UL Shmuel GriffithCOMPREHENSIVE METABOLIC [id number] 00:00:00* Test Item Value Reference Range Interpretation Comme nts GLUCOSE (test code = 2217) 95 MG/DL BUN (test code = 2208) 9 MG/DL CREATININE (test code = 2214) 0.61 MG/DL eGFR (2020 CKD-EPI) (test code = 57583) 109 ML/MIN/1.73 CALC BUN/CREAT (test code = 2235) 15 RATIO SODIUM (test code = 2231) 139 MEQ/L POTASSIUM (test code = 2228) 4.4 MEQ/L CHLORIDE (test code = 2215) 103 MEQ/L CARBON DIOXIDE (test code = 2206) 23 MEQ/L CALCIUM (test code = 2209) 9.7 MG/DL PROTEIN, TOTAL (test code = 2229) 6.8 G/DL ALBUMIN (test code = 2201) 4.5 G/DL CALC GLOBULIN (test code = 2240) 2.3 G/DL CALC A/G RATIO (test code = 2234) 2.0 RATIO BILIRUBIN, TOTAL (test code = 2207) 0.3 MG/DL ALKALINE PHOSPHATASE (test code = 2204) 97 U/L AST (test code = 2218) 13 U/L ALT (test code = 2219) 15 U/L Shmuel GriffithLIPID [id number] 00:00:00* Test Item Value Reference Range Interpretation Comme nts CHOLESTEROL (test code = 2210) 190 MG/DL TRIGLYCERIDES (test code = 2232) 217 MG/DL HDL CHOLESTEROL (test code = 2220) 46 MG/DL CALC LDL CHOL (test code = 2237) 110 MG/DL RISK RATIO LDL/HDL (test cod e = 2238) 2.39 RATIO Shmuel [id number] 00:00:00* Test Item Value Reference Range Interpretation Comme nts TSH, THIRD GENERATION (test code = 2821) 1.820 UIU/ML Shmuel GriffithCBC W/AUTO [id number] 00:00:00* Test Item Value Reference Range Interpretation Comme nts WBC (test code = 1001) 8.7 K/UL [...] = 1013) 0.7 % IMMATURE GRANULOCYTES (test code = 1036) 0.5 % NUCLEATED RBCS (test code = 1065) 0.0 /100WBC'S PLATELET COUNT (test code = 1015) 277 K/UL ABSOLUTE NEUTROPHILS (test c ode = 1066) 5.17 K/UL ABSOLUTE LYMPHOCYTES (test c ode = 1067) 2.60 K/UL ABSOLUTE MONOCYTES (test cod e = 1068) 0.50 K/UL ABSOLUTE EOSINOPHILS (test c ode = 1040) 0.35 K/UL ABSOLUTE BASOPHILS (test cod e = 1069) 0.06 K/UL ABS IMMATURE GRANULOCYTES (t est code = 1020) 0.04 K/UL ABS NUCLEATED RBCS (test cod e = 33665) 0.00 K/UL Shmuel Martin AustinCBC W/AUTO [id number] 00:00:00* Test Item Value Reference Range Interpretation Comme nts WBC (test code = 1001) 8.7 K/UL [...] = 1013) 0.7 % IMMATURE GRANULOCYTES (test code = 1036) 0.5 % NUCLEATED RBCS (test code = 1065) 0.0 /100WBC'S PLATELET COUNT (test code = 1015) 277 K/UL ABSOLUTE NEUTROPHILS (test c ode = 1066) 5.17 K/UL ABSOLUTE LYMPHOCYTES (test c ode = 1067) 2.60 K/UL ABSOLUTE MONOCYTES (test cod e = 1068) 0.50 K/UL ABSOLUTE EOSINOPHILS (test c ode = 1040) 0.35 K/UL ABSOLUTE BASOPHILS (test cod e = 1069) 0.06 K/UL ABS IMMATURE GRANULOCYTES (t est code = 1020) 0.04 K/UL ABS NUCLEATED RBCS (test cod e = 67313) 0.00 K/UL COMPREHENSIVE METABOLIC [id number] 00:00:00* Test Item Value Reference Range Interpretation Comme nts GLUCOSE (test code = 2217) 95 MG/DL BUN (test code = 2208) 9 MG/DL CREATININE (test code = 2214) 0.61 MG/DL eGFR (2020 CKD-EPI) (test code = 91037) 109 ML/MIN/1.73 CALC BUN/CREAT (test code = 2235) 15 RATIO SODIUM (test code = 2231) 139 MEQ/L POTASSIUM (test code = 2228) 4.4 MEQ/L CHLORIDE (test code = 2215) 103 MEQ/L CARBON DIOXIDE (test code = 2206) 23 MEQ/L CALCIUM (test code = 2209) 9.7 MG/DL PROTEIN, TOTAL (test code = 2229) 6.8 G/DL ALBUMIN (test code = 2201) 4.5 G/DL CALC GLOBULIN (test code = 2240) 2.3 G/DL CALC A/G RATIO (test code = 2234) 2.0 RATIO BILIRUBIN, TOTAL (test code = 2207) 0.3 MG/DL ALKALINE PHOSPHATASE (test code = 2204) 97 U/L AST (test code = 2218) 13 U/L ALT (test code = 2219) 15 U/L LIPID [id number] 00:00:00* Test Item Value Reference Range Interpretation Comme nts CHOLESTEROL (test code = 2210) 190 MG/DL TRIGLYCERIDES (test code = 2232) 217 MG/DL HDL CHOLESTEROL (test code = 2220) 46 MG/DL CALC LDL CHOL (test code = 2237) 110 MG/DL RISK RATIO LDL/HDL (test cod e = 2238) 2.39 RATIO [id number] 00:00:00* Test Item Value Reference Range Interpretation Comme nts TSH, THIRD GENERATION (test code = 2821) 1.820 UIU/ML CBC W/AUTO [id number] 00:00:00* Test Item Value Reference Range Interpretation Comme nts WBC (test code = 1001) 8.7 K/UL [...] = 1013) 0.7 % IMMATURE GRANULOCYTES (test code = 1036) 0.5 % NUCLEATED RBCS (test code = 1065) 0.0 /100WBC'S PLATELET COUNT (test code = 1015) 277 K/UL ABSOLUTE NEUTROPHILS (test c ode = 1066) 5.17 K/UL ABSOLUTE LYMPHOCYTES (test c ode = 1067) 2.60 K/UL ABSOLUTE MONOCYTES (test cod e = 1068) 0.50 K/UL ABSOLUTE EOSINOPHILS (test c ode = 1040) 0.35 K/UL ABSOLUTE BASOPHILS (test cod e = 1069) 0.06 K/UL ABS IMMATURE GRANULOCYTES (t est code = 1020) 0.04 K/UL ABS NUCLEATED RBCS (test cod e = 74697) 0.00 K/UL COMPREHENSIVE METABOLIC [id number] 00:00:00* Test Item Value Reference Range Interpretation Comme nts GLUCOSE (test code = 2217) 95 MG/DL BUN (test code = 2208) 9 MG/DL CREATININE (test code = 2214) 0.61 MG/DL eGFR (2020 CKD-EPI) (test code = 26414) 109 ML/MIN/1.73 CALC BUN/CREAT (test code = 2235) 15 RATIO SODIUM (test code = 2231) 139 MEQ/L POTASSIUM (test code = 2228) 4.4 MEQ/L CHLORIDE (test code = 2215) 103 MEQ/L CARBON DIOXIDE (test code = 2206) 23 MEQ/L CALCIUM (test code = 2209) 9.7 MG/DL PROTEIN, TOTAL (test code = 2229) 6.8 G/DL ALBUMIN (test code = 2201) 4.5 G/DL CALC GLOBULIN (test code = 2240) 2.3 G/DL CALC A/G RATIO (test code = 2234) 2.0 RATIO BILIRUBIN, TOTAL (test code = 2207) 0.3 MG/DL ALKALINE PHOSPHATASE (test code = 2204) 97 U/L AST (test code = 2218) 13 U/L ALT (test code = 2219) 15 U/L LIPID [id number] 00:00:00* Test Item Value Reference Range Interpretation Comme nts CHOLESTEROL (test code = 2210) 190 MG/DL TRIGLYCERIDES (test code = 2232) 217 MG/DL HDL CHOLESTEROL (test code = 2220) 46 MG/DL CALC LDL CHOL (test code = 2237) 110 MG/DL RISK RATIO LDL/HDL (test cod e = 2238) 2.39 RATIO [id number] 00:00:00* Test Item Value Reference Range Interpretation Comme nts TSH, THIRD GENERATION (test code = 2821) 1.820 UIU/ML CBC W/AUTO [id number] 00:00:00* Test Item Value Reference Range Interpretation Comme nts WBC (test code = 1001) 8.7 K/UL [...] = 1013) 0.7 % IMMATURE GRANULOCYTES (test code = 1036) 0.5 % NUCLEATED RBCS (test code = 1065) 0.0 /100WBC'S PLATELET COUNT (test code = 1015) 277 K/UL ABSOLUTE NEUTROPHILS (test c ode = 1066) 5.17 K/UL ABSOLUTE LYMPHOCYTES (test c ode = 1067) 2.60 K/UL ABSOLUTE MONOCYTES (test cod e = 1068) 0.50 K/UL ABSOLUTE EOSINOPHILS (test c ode = 1040) 0.35 K/UL ABSOLUTE BASOPHILS (test cod e = 1069) 0.06 K/UL ABS IMMATURE GRANULOCYTES (t est code = 1020) 0.04 K/UL ABS NUCLEATED RBCS (test cod e = 09769) 0.00 K/UL COMPREHENSIVE METABOLIC [id number] 00:00:00* Test Item Value Reference Range Interpretation Comme nts GLUCOSE (test code = 2217) 95 MG/DL BUN (test code = 2208) 9 MG/DL CREATININE (test code = 2214) 0.61 MG/DL eGFR (2020 CKD-EPI) (test code = 08846) 109 ML/MIN/1.73 CALC BUN/CREAT (test code = 2235) 15 RATIO SODIUM (test code = 2231) 139 MEQ/L POTASSIUM (test code = 2228) 4.4 MEQ/L CHLORIDE (test code = 2215) 103 MEQ/L CARBON DIOXIDE (test code = 2206) 23 MEQ/L CALCIUM (test code = 2209) 9.7 MG/DL PROTEIN, TOTAL (test code = 2229) 6.8 G/DL ALBUMIN (test code = 2201) 4.5 G/DL CALC GLOBULIN (test code = 2240) 2.3 G/DL CALC A/G RATIO (test code = 2234) 2.0 RATIO BILIRUBIN, TOTAL (test code = 2207) 0.3 MG/DL ALKALINE PHOSPHATASE (test code = 2204) 97 U/L AST (test code = 2218) 13 U/L ALT (test code = 2219) 15 U/L LIPID [id number] 00:00:00* Test Item Value Reference Range Interpretation Comme nts CHOLESTEROL (test code = 2210) 190 MG/DL TRIGLYCERIDES (test code = 2232) 217 MG/DL HDL CHOLESTEROL (test code = 2220) 46 MG/DL CALC LDL CHOL (test code = 2237) 110 MG/DL RISK RATIO LDL/HDL (test cod e = 2238) 2.39 RATIO [id number] 00:00:00* Test Item Value Reference Range Interpretation Comme nts TSH, THIRD GENERATION (test code = 2821) 1.820 UIU/ML COMPREHENSIVE METABOLIC [id number] 00:00:00* Test Item Value Reference Range Interpretation Comme nts GLUCOSE (test code = 2217) 95 MG/DL BUN (test code = 2208) 9 MG/DL CREATININE (test code = 2214) 0.61 MG/DL eGFR (2020 CKD-EPI) (test code = 78774) 109 ML/MIN/1.73 CALC BUN/CREAT (test code = 2235) 15 RATIO SODIUM (test code = 2231) 139 MEQ/L POTASSIUM (test code = 2228) 4.4 MEQ/L CHLORIDE (test code = 2215) 103 MEQ/L CARBON DIOXIDE (test code = 2206) 23 MEQ/L CALCIUM (test code = 2209) 9.7 MG/DL PROTEIN, TOTAL (test code = 2229) 6.8 G/DL ALBUMIN (test code = 2201) 4.5 G/DL CALC GLOBULIN (test code = 2240) 2.3 G/DL CALC A/G RATIO (test code = 2234) 2.0 RATIO BILIRUBIN, TOTAL (test code = 2207) 0.3 MG/DL ALKALINE PHOSPHATASE (test code = 2204) 97 U/L AST (test code = 2218) 13 U/L ALT (test code = 2219) 15 U/L Shmuel GriffithLIPID [id number] 00:00:00* Test Item Value Reference Range Interpretation Comme nts CHOLESTEROL (test code = 2210) 190 MG/DL TRIGLYCERIDES (test code = 2232) 217 MG/DL HDL CHOLESTEROL (test code = 2220) 46 MG/DL CALC LDL CHOL (test code = 2237) 110 MG/DL RISK RATIO LDL/HDL (test cod e = 2238) 2.39 RATIO Shmuel [id number] 00:00:00* Test Item Value Reference Range Interpretation Comme nts TSH, THIRD GENERATION (test code = 2821) 1.820 UIU/ML Shmuel GriffithCBC W/AUTO [id number] 00:00:00* Test Item Value Reference Range Interpretation Comme nts WBC (test code = 1001) 8.7 K/UL [...] = 1013) 0.7 % IMMATURE GRANULOCYTES (test code = 1036) 0.5 % NUCLEATED RBCS (test code = 1065) 0.0 /100WBC'S PLATELET COUNT (test code = 1015) 277 K/UL ABSOLUTE NEUTROPHILS (test c ode = 1066) 5.17 K/UL ABSOLUTE LYMPHOCYTES (test c ode = 1067) 2.60 K/UL ABSOLUTE MONOCYTES (test cod e = 1068) 0.50 K/UL ABSOLUTE EOSINOPHILS (test c ode = 1040) 0.35 K/UL ABSOLUTE BASOPHILS (test cod e = 1069) 0.06 K/UL ABS IMMATURE GRANULOCYTES (t est code = 1020) 0.04 K/UL ABS NUCLEATED RBCS (test cod e = 35168) 0.00 K/UL Shmuel GriffithCOMPREHENSIVE METABOLIC [id number] 00:00:00* Test Item Value Reference Range Interpretation Comme nts GLUCOSE (test code = 2217) 95 MG/DL BUN (test code = 2208) 9 MG/DL CREATININE (test code = 2214) 0.61 MG/DL eGFR (2020 CKD-EPI) (test code = 72972) 109 ML/MIN/1.73 CALC BUN/CREAT (test code = 2235) 15 RATIO SODIUM (test code = 2231) 139 MEQ/L POTASSIUM (test code = 2228) 4.4 MEQ/L CHLORIDE (test code = 2215) 103 MEQ/L CARBON DIOXIDE (test code = 2206) 23 MEQ/L CALCIUM (test code = 2209) 9.7 MG/DL PROTEIN, TOTAL (test code = 2229) 6.8 G/DL ALBUMIN (test code = 2201) 4.5 G/DL CALC GLOBULIN (test code = 2240) 2.3 G/DL CALC A/G RATIO (test code = 2234) 2.0 RATIO BILIRUBIN, TOTAL (test code = 2207) 0.3 MG/DL ALKALINE PHOSPHATASE (test code = 2204) 97 U/L AST (test code = 2218) 13 U/L ALT (test code = 2219) 15 U/L Shmuel GriffithPAP TEST, THINPREP, [id number] 00:00:00* Test Item Value Reference Range Interpretation Comme nts SOURCE: (test code = 8001) A) Cervical/Endocervical SLIDES: (test code = 8011) 1 LMP: (test code = 8021) 03/09/2016 SPECIMEN ADEQUACY: (test code = 26410) (NOTE) INTERPRETATION: (test code = 65739) NO EPITHELIAL ABNORMALITY SEE BELOW OTHER COMMENTS: (test code = 8081) SEE BELOW HOSPITAL WELLNESS COORDINATOR: (test code = 8101) Vandana Phipps, CT(ASCP) QC TECHNOLOGIST: (test code = 8111) Martir Mckay,SCT(ASCP)IAC LOCATION: (test code = 02703) (NOTE) CPT: (test code = 8140) (NOTE) Shmuel Martin AustinPAP TEST, THINPREP, [id number] 00:00:00* Test Item Value Reference Range Interpretation Comme nts SOURCE: (test code = 8001) A) Cervical/Endocervical SLIDES: (test code = 8011) 1 LMP: (test code = 8021) 03/09/2016 SPECIMEN ADEQUACY: (test code = 50760) (NOTE) INTERPRETATION: (test code = 10680) NO EPITHELIAL ABNORMALITY SEE BELOW OTHER COMMENTS: (test code = 8081) SEE BELOW HOSPITAL WELLNESS COORDINATOR: (test code = 8101) JEREL Frank(ASCP) QC TECHNOLOGIST: (test code = 8111) LILLIAN Harper(ASCP)IAC LOCATION: (test code = 11605) (NOTE) CPT: (test code = 8140) (NOTE) PAP TEST, THINPREP, [id number] 00:00:00* Test Item Value Reference Range Interpretation Comme nts SOURCE: (test code = 8001) A) Cervical/Endocervical SLIDES: (test code = 8011) 1 LMP: (test code = 8021) 03/09/2016 SPECIMEN ADEQUACY: (test code = 13819) (NOTE) INTERPRETATION: (test code = 54083) NO EPITHELIAL ABNORMALITY SEE BELOW OTHER COMMENTS: (test code = 8081) SEE BELOW HOSPITAL WELLNESS COORDINATOR: (test code = 8101) JEREL Frank(ASCP) QC TECHNOLOGIST: (test code = 8111) LILLIAN Harper(ASCP)IAC LOCATION: (test code = 44777) (NOTE) CPT: (test code = 8140) (NOTE) PAP TEST, THINPREP, [id number] 00:00:00* Test Item Value Reference Range Interpretation Comme nts SOURCE: (test code = 8001) A) Cervical/Endocervical SLIDES: (test code = 8011) 1 LMP: (test code = 8021) 03/09/2016 SPECIMEN ADEQUACY: (test code = 06373) (NOTE) INTERPRETATION: (test code = 07304) NO EPITHELIAL ABNORMALITY SEE BELOW OTHER COMMENTS: (test code = 8081) SEE BELOW HOSPITAL WELLNESS COORDINATOR: (test code = 8101) JEREL Frank(ASCP) QC TECHNOLOGIST: (test code = 8111) [facility] LOCATION: (test code = 77556) (NOTE) CPT: (test code = 8140) (NOTE) PAP TEST, THINPREP, [id number] 00:00:00* Test Item Value Reference Range Interpretation Comme nts SOURCE: (test code = 8001) A) Cervical/Endocervical SLIDES: (test code = 8011) 1 LMP: (test code = 8021) 03/09/2016 SPECIMEN ADEQUACY: (test code = 18629) (NOTE) INTERPRETATION: (test code = 32387) NO EPITHELIAL ABNORMALITY SEE BELOW OTHER COMMENTS: (test code = 8081) SEE BELOW HOSPITAL WELLNESS COORDINATOR: (test code = 8101) JEREL Frank(ASCP) QC TECHNOLOGIST: (test code = 8111) [facility](AS[facility])IAC LOCATION: (test code = 29889) (NOTE) CPT: (test code = 8140) (NOTE) Shmuel GriffithPAP TEST, THINPREP, [id number] 00:00:00* Test Item Value Reference Range Interpretation Comme nts SOURCE: (test code = 8001) A) Cervical/Endocervical SLIDES: (test code = 8011) 1 LMP: (test code = 8021) 03/09/2016 SPECIMEN ADEQUACY: (test code = 30747) (NOTE) INTERPRETATION: (test code = 37725) NO EPITHELIAL ABNORMALITY SEE BELOW OTHER COMMENTS: (test code = 8081) SEE BELOW HOSPITAL WELLNESS COORDINATOR: (test code = 8101) JEREL Frank(ASCP) QC TECHNOLOGIST: (test code = 8111) [facility])IAC LOCATION: (test code = 93963) (NOTE) CPT: (test code = 8140) (NOTE) Shmuel GriffithHPV HIGH RISK WITH GENOTYPE, [id number] 00:00:00* Test Item Value Reference Range Interpretation Comme nts HPV HIGH RISK INTERP (test c ode = 34349) POSITIVE HPV 16 (test code = 92198) NEGATIVE HPV 18 (test code = 62441) NEGATIVE HPV, HR, OTHER GENOTYPES (te st code = 12197) POSITIVE Shmuel GriffithHPV HIGH RISK WITH GENOTYPE, [id number] 00:00:00* Test Item Value Reference Range Interpretation Comme nts HPV HIGH RISK INTERP (test c ode = 32363) POSITIVE HPV 16 (test code = 19963) NEGATIVE HPV 18 (test code = 20334) NEGATIVE HPV, HR, OTHER GENOTYPES (te st code = 54779) POSITIVE Shmuel GriffithHPV HIGH RISK WITH GENOTYPE, [id number] 00:00:00* Test Item Value Reference Range Interpretation Comme nts HPV HIGH RISK INTERP (test c ode = 11684) POSITIVE HPV 16 (test code = 76881) NEGATIVE HPV 18 (test code = 46241) NEGATIVE HPV, HR, OTHER GENOTYPES (te st code = 16130) POSITIVE HPV HIGH RISK WITH GENOTYPE, [id number] 00:00:00* Test Item Value Reference Range Interpretation Comme nts HPV HIGH RISK INTERP (test c ode = 20385) POSITIVE HPV 16 (test code = 89507) NEGATIVE HPV 18 (test code = 86974) NEGATIVE HPV, HR, OTHER GENOTYPES (te st code = 66403) POSITIVE HPV HIGH RISK WITH GENOTYPE, [id number] 00:00:00* Test Item Value Reference Range Interpretation Comme nts HPV HIGH RISK INTERP (test c ode = 62919) POSITIVE HPV 16 (test code = 01246) NEGATIVE HPV 18 (test code = 53270) NEGATIVE HPV, HR, OTHER GENOTYPES (te st code = 43281) POSITIVE HPV HIGH RISK WITH GENOTYPE, [id number] 00:00:00* Test Item Value Reference Range Interpretation Comme nts HPV HIGH RISK INTERP (test c ode = 63770) POSITIVE HPV 16 (test code = 93075) NEGATIVE HPV 18 (test code = 10830) NEGATIVE HPV, HR, OTHER GENOTYPES (te st code = 27063) POSITIVE Shmuel Martin Nacho Notes Date/Time Note Provider Source Shmuel Griffith [facility]2024-07-26 00:00:00 Shmuel Griffith [facility]2024-07-15 00:00:00 Shmuel Obrien [facility]
[2024-09-04] MEDS ORDERED: ONDANSETRON 4 MG/2 ML VIAL ONE (06:05)
[2024-09-04] MEDS ORDERED: ASPIRIN 81 MG CHEWABLE TABLET ONE (06:06)
[2024-09-04] MEDS ORDERED: NA CHLORIDE 0.9% 1,000 ML ONE (06:06)
[2024-09-04] MEDS ORDERED: MORPHINE 2 MG/ML SYR ONE (06:06)
[2024-09-04] MEDS ORDERED: FAMOTIDINE 20 MG/2 ML VIAL IV ONE (06:06)
[2024-09-04 06:20] LABS: Absolute Eosinophils 0.3 K/uL (0-0.5); Absolute Lymphocytes (CBC) 2.3 K/uL (0.7-4.9); Absolute Monocytes 0.5 K/uL (0.1-1.3); Absolute Neutrophil 4.6 K/uL (1.8-8.0); Basophils % 0.5 % (0-1.3); Hematocrit 44.3 % (36.0-45.0); Hemoglobin 15.1 g/dL (12.0-15.0); Lymphocytes % 30.1 % (15.3-44.8); MCH 32.4 pg (27.0-35.0); MCHC 34.1 g/dL (32.0-36.0); MCV 95.1 fL (80-100); Monocytes % 6.7 % (3.3-12.3); Neutrophils % 58.7 % (41.7-73.7); Nucleated Red Blood Cells % 0.1 % (0-0); Platelets 254 thou/uL (152-406); RBC Red Blood Cell Count 4.65 M/uL (3.86-4.86); Red Cell Distribution Width 12.9 % (12.1-15.2)
[2024-09-04 06:40] LABS: ALT/SGPT 34 U/L (13-56); AST/SGOT 21 U/L (15-37); Albumin 3.6 g/dL (3.4-5.0); Alkaline Phosphatase 96 U/L (45-117); Anion Gap 8.9 mEq/L (5.0-15.0); BUN Blood Urea Nitrogen 11 mg/dL (7-18); Bicarbonate 25 mEq/L (21-32); Bilirubin Total 0.5 mg/dL (0.2-1.0); Globulin 3.6 g/dL (2.3-3.5); Glomerular Filtration Rate 107 ml/min (=/>90); Glucose Level 117 mg/dL (74-106); Lipase 33 U/L (13-75); Magnesium 1.8 mg/dL (1.6-2.4); NT PRO-BNP 123 pg/mL (<125); Potassium 3.9 mEq/L (3.5-5.1); Protein, Total 7.2 g/dL (6.4-8.2); Sodium Level 138 mEq/L (136-145)
[2024-09-04 06:43] LABS: Bilirubin Direct < 0.2 mg/dL (0-0.2); Bilirubin Indirect, Calculated 0.3 mg/dL (0.2-0.8); Troponin High Sensitivity < 3.0 pg/mL (<58.9)
--- NOTE | 2024-09-04 06:52 | RAD REPORT ---
PROCEDURE: R CHEST 1 VIEW HISTORY: AIN COMPARISON: 09/22/2023 FINDINGS: The heart appears unremarkable. The lungs are clear there is no alveolar consolidation, effusion or p neumothorax. There are no acute bony or soft tissue abnormalities. IMPRESSION: No acute cardiopulmonary process. Electronically signed by: Reggie Mack MD 09/04/2024 06:28 AM CDT RP Du e to temporary technical issues with the PACS/SpotMe reporting system, reports are being signed by the in-house radiologist without review as a courtesy to ensure prompt reporting the [facility] radiologist is fully responsible for the content of the report. Transcribed Date/Time: 09/04/2024 6:52 AM
--- NOTE | 2024-09-04 07:10 | ER ---
Nurse's Notes [facility] Name: Carolina Rivera Age: 54 yrs Sex: Female : 1970 Arrival Date: 09/04/2024 Time: 05:47 Bed 5 Private MD: Diagnosis: Chest pain, unspecified;Essential (primary) hypertension;Type 2 diabetes mellitus with hyperglycemia Presentation: 09/04 06:01 Chief complaint: Patient states: Started having chest pain last night but it is getting vc1 worse and making me nauseous. Coronavirus screen: Client denies travel out of the [place] in the last 14 days. At this time, the client does not indicate any symptoms associated with coronavirus-19. Ebola Screen: Patient negative for fever greater than or equal to 101.5 degrees Fahrenheit, and additional compatible Ebola Virus Disease symptoms Patient denies exposure to infectious person. Patient denies travel to an Ebola-affected area in the 21 days before illness onset. No symptoms or risks identified at this time. Initial Sepsis Screen: Does the patient meet any 2 criteria? No. Patient's initial sepsis screen is negative. Does the patient have a suspected source of infection? No. Patient's initial sepsis screen is negative. Risk Assessment: Do you want to hurt yourself or someone else? Patient reports no desire to harm self or others. Onset of symptoms was September 03, 2024. Care prior to arrival: None. Activity prior to arrival: None. 06:01 Method Of Arrival: Wheelchair vc1 06:01 Acuity: DANETTE 3 vc1 Triage Assessment: 06:07 General: Appears in no apparent distress. uncomfortable, Behavior is cooperative, vc1 anxious. Pain: Complains of pain in chest Pain radiates to back Pain currently is 7 out of 10 on a pain scale. Quality of pain is described as sharp, Also complains of nausea. EENT: No deficits noted. No signs and/or symptoms were reported regarding the EENT system. Neuro: Level of Consciousness is awake, alert, obeys commands, Oriented to person, place, time, situation, Appropriate for age. Cardiovascular: Reports chest pain, nausea, Capillary refill < 3 seconds Patient's skin is warm and dry. Chest pain is described as severe. Respiratory: Airway is patent Respiratory effort is even, unlabored, Respiratory pattern is regular, symmetrical. GI: Abdomen is round non-distended, Bowel sounds present X 4 quads. Abd is soft and non tender. : No deficits noted. No signs and/or symptoms were reported regarding the genitourinary system. Derm: Skin is intact, is healthy with good turgor, Skin is dry, Skin is normal, Skin temperature is warm. Musculoskeletal: No deficits noted. No signs and/or symptoms reported regarding the musculoskeletal system. Historical: - Allergies: 06:06 PENICILLINS; vc1 - PMHx: 06:06 Hypercholesterolemia; Hypertensive disorder; Diabetes mellitus; vc1 - PSHx: 06:06 None; vc1 - Immunization history:: Adult Immunizations unknown. - Infectious Disease History:: Denies. - Family history:: not pertinent. - Social history:: Smoking status: Patient reports the use of cigarette tobacco products, smokes one-half pack cigarettes per day. Screenin:06 [facility] ED Fall Risk Assessment (Adult) History of falling in the last 3 months, vc1 including since admission No falls in past 3 months (0 pts) Confusion or Disorientation No (0 pts) Intoxicated or Sedated No (0 pts) Impaired Gait No (0 pts) Mobility Assist Device Used No (0 pt) Altered Elimination No (0 pt) Score/Fall Risk Level 0 - 2 = Low Risk Oriented to surroundings, Maintained a safe environment, Educated pt \T\ family on fall prevention, incl call for assistance when getting out of bed. Abuse screen: Denies threats or abuse. Nutritional screening: No deficits noted. Tuberculosis screening: No symptoms or risk factors identified. Assessment: 06:08 Reassessment: Patient appears in no apparent distress at this time. Patient and/or bm8 family updated on plan of care and expected duration. Pain level reassessed. Patient is alert, oriented x 3, equal unlabored respirations, skin warm/dry/pink. General: Appears in no apparent distress. uncomfortable, Behavior is calm, cooperative, appropriate for age. Pain: Complains of pain in chest and epigastric area Pain radiates to back Pain currently is 7 out of 10 on a pain scale. Quality of pain is described as pressure, sharp, Pain began last night. Neuro: No deficits noted. Level of Consciousness is awake, alert, obeys commands, Oriented to person, place, time, situation, Appropriate for age. Cardiovascular: Reports chest pain, Heart tones S1 S2 present Capillary refill < 3 seconds in bilateral fingers Patient's skin is warm and dry. Rhythm is sinus rhythm. Respiratory: Airway is patent Trachea midline Respiratory effort is even, labored, Respiratory pattern is regular, symmetrical, Breath sounds are clear bilaterally. GI: Abdomen is round non-distended, obese, Bowel sounds present X 4 quads. Abd is soft and non tender X 4 quads. Reports epigastric pain. : No signs and/or symptoms were reported regarding the genitourinary system. EENT: No signs and/or symptoms were reported regarding the EENT system. Derm: No signs and/or symptoms reported regarding the dermatologic system. Musculoskeletal: No signs and/or symptoms reported regarding the musculoskeletal system. 07:05 Reassessment: Patient appears in no apparent distress at this time. Patient and/or hb family updated on plan of care and expected duration. Pain level reassessed. Patient is alert, oriented x 3, equal unlabored respirations, skin warm/dry/pink. 08:30 Reassessment: Patient appears in no apparent distress at this time. Patient and/or hb family updated on plan of care and expected duration. Pain level reassessed. Patient is alert, oriented x 3, equal unlabored respirations, skin warm/dry/pink. Vital Signs: 06:01 BP 174 / 98; Pulse 88; Resp 18; Temp 98.8; Pulse Ox 99% ; Weight 73.48 kg; Height 5 ft. vc1 3 in. ; Pain 7/10; 07:00 BP 135 / 90; Pulse 72; Resp 16; Pulse Ox 100% on R/A; Pain 0/10; hb 07:48 BP 127 / 79; Pulse 74; Resp 17; Pulse Ox 100% on R/A; hb 08:30 BP 118 / 68; Pulse 60; Resp 15; Pulse Ox 99% on R/A; Pain 1/10; hb 06:01 Body Mass Index 28.70 (73.48 kg, 160.02 cm) vc1 06:01 Pain Scale: Adult vc1 07:00 Pain Scale: Adult hb 08:30 Pain Scale: Adult hb Cachorro Coma Score: 06:08 Eye Response: spontaneous(4). Motor Response: obeys commands(6). Verbal Response: bm8 oriented(5). Total: 15. ED Course: 05:50 Patient arrived in ED. jj6 05:53 Lance Bauer MD is Attending Physician. magalie 06:04 Carlos Sanchez, RN is Primary Nurse. bm8 06:06 Triage completed. vc1 06:06 Arm band placed on right wrist. vc1 06:08 Provided Education on:. Door closed. Noise minimized. Visitors limited. Warm blanket bm8 given. Pillow given. Verbal reassurance given. Head of bed elevated. 06:08 No provider procedures requiring assistance completed. Initial lab(s) drawn, by endy murphy sent to lab. EKG done, by ED staff, reviewed by Lance Bauer MD. Inserted saline lock: 20 gauge in right forearm, using aseptic technique. Blood collected. Flushed with 10 mL NS. Patient maintains SpO2 saturation greater than 95% on room air. 06:09 Patient has correct armband on for positive identification. Placed in gown. Bed in low vc1 position. Call light in reach. Side rails up X2. Adult w/ patient. cake froster on. Pulse ox on. NIBP on. 06:12 XRAY Chest (1 view) In Process Unspecified. EDMS 07:00 US Abdomen Limited In Process Unspecified. EDMS 07:09 Apolonia Araujo MD is Hospitalizing Provider. magalie 07:[address] via stretcher. hb 07:22 CT Aorta for Dissection In Process Unspecified. EDMS 08:45 Patient admitted, IV remains in place. hb 12:50 Troponin HS Sent. hb Administered Medications: 06:11 Drug: Famotidine IVP 20 mg IVP once; dilute with 10 mL 0.9% NaCl; give over 2 minutes lg3 Route: IVP; Site: right forearm; 07:00 Follow up: Response: No adverse reaction hb 06:11 Drug: morphine IVP or IV 2 mg IVP once over 4 mins Route: IVP; Infused Over: 4 mins; lg3 Site: right forearm; 07:00 Follow up: Response: No adverse reaction; Pain is decreased hb 06:11 Drug: Ondansetron IVP 4 mg IVP once; over 2 minutes Route: IVP; Site: right forearm; lg3 07:00 Follow up: Response: No adverse reaction hb 06:12 Drug: Aspirin PO Chewable Tablet 324 mg PO once; 81 mg tablets x 4 Route: PO; lg3 07:10 Follow up: Response: No adverse reaction hb 06:12 Drug: NS 0.9% IV 1000 ml IV at 125 ml/hr continuous Route: IV; Rate: 125 ml/hr; Site: lg3 right forearm; 18:31 Follow up: Response: No adverse reaction; IV Status: Infusion continued upon admission; hb IV Intake: 275ml 07:02 Drug: morphine IVP or IV 2 mg IVP once over 4 mins Route: IVP; Infused Over: 4 mins; lg3 Site: right forearm; 07:30 Follow up: Response: No adverse reaction; Pain is decreased hb 07:48 Drug: Metoprolol PO 50 mg PO once {Note: give [address] Bauer.} Route: PO; hb 08:39 Follow up: Response: No adverse reaction hb 09:13 Not Given (Physician Discretion): [id number] mg Sub-Q once; GIVE IF CT DISSECTION IS bp NEGATIVE Medication: 06:09 VIS not applicable for this client. vc1 Intake: 18:31 IV: 275ml; Total: 275ml. hb Outcome: 07:09 Decision to Hospitalize by Provider. magalie 08:46 Admitted to ER Hold. Please see [facility] for further documentation. hb 08:46 Condition: stable 08:46 Instructed on the need for admit, Demonstrated understanding of instructions, 14:31 Patient left the ED. hb Signatures: Dispatcher [employer] Lance Stephen MD MD cha Baxter, Heather, RN RN Ankita Solorzano RN RN lg3 Tsering Suarez6 Kourtney Garibay RN RN vc1 Carlos Sanchez RN RN bm8 Emanuel Carolina RN bp
--- NOTE | 2024-09-04 07:10 | EDPHYS ---
Physician Documentation [facility] Name: Carolina Rivera Age: 54 yrs Sex: Female : 1970 Arrival Date: 09/04/2024 Time: 05:47 Bed 5 Private MD: ED Physician Lance Bauer HPI: 09/04 06:02 This 54 yrs old Female presents to ER via Unassigned with complaints of Chest magalie Pain, Neck and Upper Back Pain. 06:02 The patient or guardian reports chest pain that is located primarily in the substernal magalie area, anterior chest wall, bilaterally. Onset: 1 day(s) ago. The pain radiates to back. Associated signs and symptoms: Pertinent positives: dizziness. The chest pain is described as a heaviness, a pressure. Duration: The patient or guardian reports multiple episodes, that wax and wane. Modifying factors: The symptoms are alleviated by nothing. the symptoms are aggravated by nothing. Severity of pain: At its worst the pain was moderate in the emergency department the pain has improved. The patient has not experienced similar symptoms in the past. Historical: - Allergies: 06:06 PENICILLINS; vc1 - PMHx: 06:06 Hypercholesterolemia; Hypertensive disorder; Diabetes mellitus; vc1 - PSHx: 06:06 None; vc1 - Immunization history:: Adult Immunizations unknown. - Infectious Disease History:: Denies. - Family history:: not pertinent. - Social history:: Smoking status: Patient reports the use of cigarette tobacco products, smokes one-half pack cigarettes per day. ROS: 06:02 Constitutional: Negative for fever, chills, and weight loss, Eyes: Negative for injury, magalie pain, redness, and discharge, ENT: Negative for injury, pain, and discharge, Neck: Negative for injury, pain, and swelling, Respiratory: Negative for shortness of breath, cough, wheezing, and pleuritic chest pain, Back: Negative for injury and pain, : Negative for injury, bleeding, discharge, and swelling, MS/Extremity: Negative for injury and deformity, Skin: Negative for injury, rash, and discoloration, Neuro: Negative for headache, weakness, numbness, tingling, and seizure, Psych: Negative for depression, anxiety, suicide ideation, homicidal ideation, and hallucinations, Allergy/Immunology: Negative for hives, rash, and allergies, Endocrine: Negative for neck swelling, polydipsia, polyuria, polyphagia, and marked weight changes, Hematologic/Lymphatic: Negative for swollen nodes, abnormal bleeding, and unusual bruising, 06:02 Cardiovascular: Positive for chest pain, Exam: 06:02 Constitutional: This is a well developed, well nourished patient who is awake, alert, magalie and in no acute distress. Head/Face: Normocephalic, atraumatic. Eyes: Pupils equal round and reactive to light, extra-ocular motions intact. Lids and lashes normal. Conjunctiva and sclera are non-icteric and not injected. Cornea within normal limits. Periorbital areas with no swelling, redness, or edema. ENT: Nares patent. No nasal discharge, no septal abnormalities noted. Tympanic membranes are normal and external auditory canals are clear. Oropharynx with no redness, swelling, or masses, exudates, or evidence of obstruction, uvula midline. Mucous membranes moist. Neck: Trachea midline, no thyromegaly or masses palpated, and no cervical lymphadenopathy. Supple, full range of motion without nuchal rigidity, or vertebral point tenderness. No Meningismus. Cardiovascular: Regular rate and rhythm with a normal S1 and S2. No gallops, murmurs, or rubs. Normal PMI, no JVD. No pulse deficits. Respiratory: Lungs have equal breath sounds bilaterally, clear to auscultation and percussion. No rales, rhonchi or wheezes noted. No increased work of breathing, no retractions or nasal flaring. Abdomen/GI: Soft, non-tender, with normal bowel sounds. No distension or tympany. No guarding or rebound. No evidence of tenderness throughout. Back: No spinal tenderness. No costovertebral tenderness. Full range of motion. Pelvic Exam: Normal external genitalia. Speculum exam with closed cervical os, no discharge or bleeding noted. Bimanual exam with normal adnexa, no adnexal or cervical motion tenderness. Normal uterus. Female : Normal external genitalia. Skin: Warm, dry with normal turgor. Normal color with no rashes, no lesions, and no evidence of cellulitis. MS/ Extremity: Pulses equal, no cyanosis. Neurovascular intact. Full, normal range of motion. Neuro: Awake and alert, GCS 15, oriented to person, place, time, and situation. Cranial nerves II-XII grossly intact. Motor strength 5/5 in all extremities. Sensory grossly intact. Cerebellar exam normal. Normal gait. Psych: Awake, alert, with orientation to person, place and time. Behavior, mood, and affect are within normal limits. 06:02 Chest/axilla: Inspection: normal, no acute changes, Palpation: is normal, no acute changes, Axilla: are normal, Breasts: are normal, Lymph nodes: lymphadenopathy is not appreciated, 06:02 ECG was reviewed by the Attending Physician. 06:06 Musculoskeletal/extremity: DVT Exam: No signs of deep vein thrombosis. no pain, no magalie swelling, no tenderness, negative Homans' sign noted on exam, no appreciated bluish discoloration, no erythema, no increased warmth, Vital Signs: 06:01 BP 174 / 98; Pulse 88; Resp 18; Temp 98.8; Pulse Ox 99% ; Weight 73.48 kg; Height 5 ft. vc1 3 in. ; Pain 7/10; 07:00 BP 135 / 90; Pulse 72; Resp 16; Pulse Ox 100% on R/A; Pain 0/10; hb 07:48 BP 127 / 79; Pulse 74; Resp 17; Pulse Ox 100% on R/A; hb 08:30 BP 118 / 68; Pulse 60; Resp 15; Pulse Ox 99% on R/A; Pain 1/10; hb 06:01 Body Mass Index 28.70 (73.48 kg, 160.02 cm) vc1 06:01 Pain Scale: Adult vc1 07:00 Pain Scale: Adult hb 08:30 Pain Scale: Adult hb Cachorro Coma Score: 06:08 Eye Response: spontaneous(4). Motor Response: obeys commands(6). Verbal Response: bm8 oriented(5). Total: 15. MDM: 05:53 Medical Screening Exam initiated magalie 06:06 Differential diagnosis: abnormal EKG, acute myocardial infarction, acute pericarditis, magalie anxiety, coronary artery disease chest wall pain, cholecystitis, Cholelithiasis pancreatitis, peptic ulcer disease, pericarditis, pleurisy, pneumonia, pulmonary embolus, stable angina, thoracic aortic disection. HEART Score: History: Slightly Suspicious (0). The patient was given aspirin in the Emergency Department. MAHIN Risk Score: 1 - Three or more CAD risk factors, 1 - Recent [<24hrs] Severe Angina, TOTAL SCORE = 2. Data reviewed: vital signs, nurses notes, lab test result(s), EKG, radiologic studies. Consideration of Admission/Observation Patient was admitted/placed on observation. Escalation of care including admission/observation considered. I considered the following discharge prescriptions or medication management in the emergency department Medications were administered in the Emergency Department. See MAR. Independent interpretation of the following test(s) in the Emergency Department EKG: See my EKG interpretation above. Test considered but Not performed: Ultrasound NO 2 D ECHO. Care significantly affected by the following chronic conditions: Diabetes, Hypertension, Obesity, HIGH CHLESTEROL. 09/04 05:55 Order name: Basic Metabolic Panel; Complete Time: 07:05 [facility] 09/04 05:55 Order name: CBC with Diff; Complete Time: 07:05 [facility] 09/04 05:55 Order name: LFT's; Complete Time: 07:05 [facility] 09/04 05:55 Order name: Magnesium; Complete Time: 07:05 [facility] 09/04 05:55 Order name: NT PRO-BNP; Complete Time: 07:05 [facility] 09/04 05:55 Order name: PT-INR [facility] 09/04 05:55 Order name: Troponin HS; Complete Time: 07:05 [facility] 09/04 05:55 Order name: Lipase; Complete Time: 07:05 [facility] 09/04 05:55 Order name: Urinalysis w/ reflexes 09/04 08:31 Order name: Troponin HS hb 09/04 09:00 Order name: Troponin High Sensitivity [facility] 09/04 13:16 Order name: Troponin High Sensitivity [facility] 09/04 05:55 Order name: XRAY Chest (1 view); Complete Time: 07:05 09/04 06:01 Order name: US Abdomen Limited 09/04 07:08 Order name: CT Aorta for Dissection 09/04 11:19 Order name: US EDAL 09/04 05:55 Order name: Cardiac monitoring; Complete Time: 06:04 [facility] 09/04 05:55 Order name: EKG - Nurse/Tech; Complete Time: 06:04 [facility] 09/04 05:55 Order name: IV Saline Lock; Complete Time: 06:04 [facility] 09/04 05:55 Order name: Labs collected and sent; Complete Time: 06:04 [facility] 09/04 05:55 Order name: O2 Per Protocol; Complete Time: 06:04 magalie 09/04 05:55 Order name: O2 Sat Monitoring; Complete Time: 06:04 magalie 09/04 06:35 Order name: Misc. Order: recollect-bluetop; Complete Time: 06:44 vk 09/04 07:03 Order name: Labs - recollect needed: recollect blue top; Complete Time: 07:17 bd EC:02 Rate is 94 beats/min. Rhythm is regular. QRS [place] is Normal. [place] interval is normal. QRS magalie interval is normal. QT interval is normal. No Q waves. T waves are Normal. No ST changes noted. Clinical impression: Normal ECG, NSR w/ Non-specific ST/T Changes, and No evidence of ischemia. Interpreted by me. Reviewed by me. Administered Medications: 06:11 Drug: Famotidine IVP 20 mg IVP once; dilute with 10 mL 0.9% NaCl; give over 2 minutes lg3 Route: IVP; Site: right forearm; 07:00 Follow up: Response: No adverse reaction hb 06:11 Drug: morphine IVP or IV 2 mg IVP once over 4 mins Route: IVP; Infused Over: 4 mins; lg3 Site: right forearm; 07:00 Follow up: Response: No adverse reaction; Pain is decreased hb 06:11 Drug: Ondansetron IVP 4 mg IVP once; over 2 minutes Route: IVP; Site: right forearm; lg3 07:00 Follow up: Response: No adverse reaction hb 06:12 Drug: Aspirin PO Chewable Tablet 324 mg PO once; 81 mg tablets x 4 Route: PO; lg3 07:10 Follow up: Response: No adverse reaction hb 06:12 Drug: NS 0.9% IV 1000 ml IV at 125 ml/hr continuous Route: IV; Rate: 125 ml/hr; Site: lg3 right forearm; 18:31 Follow up: Response: No adverse reaction; IV Status: Infusion continued upon admission; hb IV Intake: 275ml 07:02 Drug: morphine IVP or IV 2 mg IVP once over 4 mins Route: IVP; Infused Over: 4 mins; lg3 Site: right forearm; 07:30 Follow up: Response: No adverse reaction; Pain is decreased hb 07:48 Drug: Metoprolol PO 50 mg PO once {Note: give [address] Bauer[address] Route: PO; hb 08:39 Follow up: Response: No adverse reaction hb 09:13 Not Given (Physician Discretion): [id number] mg Sub-Q once; GIVE IF CT DISSECTION IS bp NEGATIVE Disposition Summary: 09/04/24 07:09 Hospitalization Ordered Notes: Hospitalization Status: Observation magalie Provider: Apolonia Araujo cha Condition: Fair magalie Problem: new magalie Symptoms: have improved magalie Bed/Room Type: Standard magalie Location: Telemetry/MedSurg (observation)(09/04/24 13:15) bd Room Assignment: 230(09/04/24 13:15) bd Diagnosis - Chest pain, unspecified magalie - Essential (primary) hypertension magalie - Type 2 diabetes mellitus with hyperglycemia magalie Forms: - Medication Reconciliation Form magalie - SBAR form magalie - Leadership Thank You Letter magalie Signatures: Dispatcher [employer] EDMS Jyoti Piedra Corey, MD MD cha Baxter, Heather, RN RN yousif Solorzano, MASSIEL Luciano RN lg3 Kourtney Garibay RN RN vc1 Meron Kumar Brian RN bp Corrections: (The following items were deleted from the chart) 05:56 05:55 BASIC METABOLIC PANEL+C.LAB.BRZ ordered. EDMS EDMS 05:56 05:55 CBC+H.LAB.BRZ ordered. EDMS EDMS 05:56 05:55 HEPATIC FUNCTION+C.LAB.BRZ ordered. EDMS EDMS 05:56 05:55 MAGNESIUM+C.LAB.BRZ ordered. EDMS EDMS 05:56 05:55 PROBNP+C.LAB.BRZ ordered. EDMS EDMS 05:56 05:55 PROTIME (+INR)+COAG.LAB.BRZ ordered. EDMS EDMS 05:56 05:55 Troponin High Sensitivity+C.LAB.BRZ ordered. EDMS EDMS 05:56 05:55 LIPASE+C.LAB.BRZ ordered. EDMS EDMS 05:56 05:55 Urinalysis+U.LAB.BRZ ordered. EDMS EDMS 05:56 05:56 Chest Single View+RAD.RAD.BRZ ordered. EDMS EDMS 08:49 07:09 Telemetry/MedSurg (observation) magalie hb 08:49 07:09 magalie hb 13:15 08:49 [facility] ER HOLD hb bd 13:15 08:49 ERHOLD- hb bd
[2024-09-04] MEDS ORDERED: ENOXAPARIN 80 MG/0.8 ML SQ ONE (07:16)
[2024-09-04] MEDS ORDERED: METOPROLOL TAR 50 MG TAB ONE (07:17)
--- NOTE | 2024-09-04 07:49 | RAD REPORT ---
EXAM: Right upper quadrant ultrasound. CLINICAL HISTORY: Abdominal pain COMPARISON: None FINDINGS: A gallstone is not seen. Gallbladder wall not thickened. Biliary tree normal caliber IMPRESSION: No significant abnormalities displayed
[2024-09-04 07:57] LABS: PT Prothrombin Time 10.8 SECONDS (9.4-12.5); Protime INR 0.96
--- NOTE | 2024-09-04 07:58 | RAD REPORT ---
EXAM: CTA of the chest, abdomen and pelvis HISTORY: Chest and abdominal pain COMPARISON: 2022 CT abdomen TECHNIQUE: Multiple contiguous axial images were obtained a CTA of the chest and abdomen with contras t per aortic dissection protocol. Sagittal and coronal 3-D MIP reformats were performed. 100 cc Isovue-370 administered intravenously. FINDINGS: An aortic dissection not seen. 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 The spleen, pancreas, adrenals, kidneys and bladder do not demonstrate a significant abnormality No evidence of diverticulitis. Normal appendix. No adnexal mass. 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
[2024-09-04] MEDS ORDERED: ONDANSETRON 4 MG/2 ML VIAL IV PRN (08:27)
[2024-09-04 08:55] VITALS: BMI 28.7
--- NOTE | 2024-09-04 09:21 | P.HP ---
Certification for Inpatient Patient admitted to: Observation With expected LOS: <2 Midnights Patient will require the following post-hospital care: None Practitioner: I am a practitioner with admitting privileges, knowledge of patient current condition, hospital course, and medical plan of care. Services: Services provided to patient in accordance with Admission requirements found in Title 42 Section 412.3 of the Code of Federal Regulations Patient History Date of Service: 09/04/24 Reason for admission: Chest pain rule out acute coronary syndrome History of Present Illness: Patient is a pleasant 54-year-old female who presents to the hospital with chest discomfort. Pain was mainly in the left sternal region and she was short of breath. She came to the emergency room and initial troponins were negative. EKG was unremarkable. Patient was given antiplatelet therapy and statin therapy. Patient has a history of diabetes and hypertension but these are fairly well-controlled. At this time, patient will be admitted to the hospital for observation. 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 Patient will be n.p.o. pending cardiology evaluation. Started on heparin drip. Allergies Penicillins Allergy (Verified 09/04/24 08:27) Itching/Hives/Rash - Past Medical/Surgical History -: DM -: HTN Past Surgical History: Patient denies surgical history - Family History Father Family History: Reviewed- Non-Contributory - Social History Smoking Status: Never smoker Alcohol use: No CD- Drugs: No Place of Residence: Home Review of Systems 10-point ROS is otherwise unremarkable Physical Examination - Vital Signs Temperature: 98 F Blood Pressure: 140/80 Pulse: 80 Respirations: 18 Pulse Ox (%): 95 - Physical Exam General: Alert, In no apparent distress, Oriented x3 HEENT: Atraumatic, PERRLA, Mucous membr. moist/pink, EOMI, Sclerae nonicteric Neck: Supple, 2+ carotid pulse no bruit, No LAD, Without JVD or thyroid abnormality Respiratory: Clear to auscultation bilaterally, Normal air movement Cardiovascular: Regular rate/rhythm, Normal S1 S2 Gastrointestinal: Normal bowel sounds, Soft and benign, Non-distended, No tenderness Musculoskeletal: No clubbing, No swelling, No tenderness Integumentary: No rashes Neurological: Normal gait, Normal speech, Normal strength at 5/5 x4 extr, Normal tone, Sensation intact, Cranial nerves 3-12 intact, Normal affect Lymphatics: No axilla or inguinal lymphadenopathy - Studies Laboratory Data (last 24 hrs) 09/04/24 09/04/24 09/04/24 07:15 06:06 06:06 WBC 7.80 Hgb 15.1 H Hct 44.3 Plt Count 254 PT 10.8 INR 0.96 Sodium 138 Potassium 3.9 BUN 11 Creatinine 0.61 Glucose 117 H Magnesium 1.8 Total Bilirubin 0.5 AST 21 ALT 34 Alkaline Phosphatase 96 Lipase 33 Assessment & Plan - Problems (Diagnosis) (1) Chest pain, rule out acute myocardial infarction Current Visit: Yes Status: Acute (2) Hypertension Current Visit: Yes Status: Acute (3) Type 2 diabetes mellitus Current Visit: Yes Status: Acute (4) Stenosis of left iliac artery Current Visit: Yes Status: Acute - Plan -High-sensitivity troponin -Cardiology consultation for PAD eval -Echocardiogram and stress test per cardiology recommendation -Repeat EKG -Work-up for other etiologies of cardiac chest pain if troponins remain negative -Lipid profile -Content Assistant regarding modifying risk for cardiac disease Discharge Plan: Home Plan to discharge in: 24 Hours - Advance Directives Does patient have a Living Will: No Does patient have a Durable POA for Healthcare: No - Code Status/Comfort Care Code Status Assessed: Yes Code Status: Full Code Critical Care: No Time Spent Managing PTS Care (In Minutes): 45
[2024-09-04] MEDS: ASPIRIN EC 81 MG TAB PO ONE (09:45)
--- NOTE | 2024-09-04 11:18 | RAD REPORT ---
EXAM:Lower Extremity Artery Uni Ltd HISTORY: Leg pain TECHNIQUE: Sonographic evaluation left lower extremity arteries performed.Grayscale, color and spectr al analysis performed on all vessels FINDINGS: The left external iliac artery triphasic.. The left common iliac artery not visualized. Left common femoral arterial waveform triphasic Left superficial femoral arterial waveform triphasic Left popliteal arterial waveform is biphasic. Left posterior tibial waveform is biphasic Left dorsalis pedis arterial waveform biphasic. No high-grade stenosis/occlusion IMPRESSION: Mild arterial disease involving the mid to distal arteries left lower extremity
--- NOTE | 2024-09-04 12:41 | P.CNS ---
Date of Consult: 09/04/24 Chief Complaint: Chest pain rule out acute coronary syndrome History of Present Illness: Patient with PMH of HTN, HLD, DM presented with chest pain started yesterday, mid chest, radiating to the back, associated with dizziness, denies any other cardiac symptoms. Allergies Penicillins Allergy (Verified 09/04/24 08:27) Itching/Hives/Rash Home medications list reviewed: Yes - Past Medical/Surgical History -: DM -: HTN - Family History Father Family History: Reviewed- Non-Contributory - Social History Smoking Status: Unknown if ever smoked Alcohol use: No CD- Drugs: No Place of Residence: Home Review of Systems 10-point ROS is otherwise unremarkable Physical Examination Temp Pulse Resp BP Pulse Ox 98 F 56 15 134/89 97 09/04/24 09:22 09/04/24 12:00 09/04/24 12:00 09/04/24 12:00 09/04/24 12:00 General: Alert, In no apparent distress HEENT: Atraumatic, PERRLA, Mucous membr. moist/pink, EOMI, Sclerae nonicteric Neck: Supple, 2+ carotid pulse no bruit, No LAD, Without JVD or thyroid abnormality Respiratory: Clear to auscultation bilaterally, Normal air movement Cardiovascular: Regular rate/rhythm, Normal S1 S2 Gastrointestinal: Normal bowel sounds, No tenderness Musculoskeletal: No tenderness Integumentary: No rashes Neurological: Normal gait, Normal speech, Normal tone, Normal affect Lymphatics: No axilla or inguinal lymphadenopathy Laboratory Data (last 24 hrs) 09/04/24 09/04/24 09/04/24 07:15 06:06 06:06 WBC 7.80 Hgb 15.1 H Hct 44.3 Plt Count 254 PT 10.8 INR 0.96 Sodium 138 Potassium 3.9 BUN 11 Creatinine 0.61 Glucose 117 H Magnesium 1.8 Total Bilirubin 0.5 AST 21 ALT 34 Alkaline Phosphatase 96 Lipase 33 - Problems (1) Chest pain, rule out acute myocardial infarction Current Visit: Yes Status: Acute Plan: get cardiolite stress test (exercise nuclear stress test) ASA 81 mg daily Liptor 40 mg daily (2) Hypertension Current Visit: Yes Status: Acute Plan: continue to monitor (3) Stenosis of left iliac artery Current Visit: Yes Status: Acute Plan: incidental finding of thrombus in left internal iliac artery Heparin drip if stress test is negative then start Eliquis 5 mg po BID outpatient follow up.
[2024-09-04] MEDS ORDERED: REGADENOSON 0.4 MG/5 ML SYR IV ONE (13:39)
[2024-09-04 15:40] LABS: Specific Gravity 1.007 (1.005-1.030); Sqamous Epithelial None Seen /HPF (None Seen); Urine Bacteria <20 /HPF (<20); Urine Bilirubin NEGATIVE (Negative); Urine Blood 2+ (Negative); Urine Clarity Clear (Clear); Urine Color Colorless (Yellow); Urine Culture Reflex Order NOT NEEDED; Urine Glucose NEGATIVE (Negative); Urine Ketones NEGATIVE (Negative); Urine Microscopic Reflex YN ORDER UMIC; Urine Nitrite NEGATIVE (Negative); Urine Protein NEGATIVE (Negative); Urine RBC <5 /HPF (None Seen); Urine Urobilinogen Normal (Normal); Urine WBC <5 /HPF (<5)
[2024-09-04] MEDS: HEPARIN/D5W 25,000 UNIT/500 ML BAG IV SCH (16:51)
[2024-09-04] MEDS: ATORVASTATIN 40 MG TAB PO SCH (20:42)
--- NOTE | 2024-09-04 21:29 | RAD REPORT ---
EXAM: Nuclear medicine cardiac perfusion examination with ejection fraction HISTORY: Chest pain. Third troponin negative TECHNIQUE: Rest images: 10.6 mCi technetium 99m sestamibi Stress images: 31.9 mCi of technetium 99m sestamibi; 0.4 mg regadenoson injected intravenously as a p harmaceutical stress agent. COMPARISON: None FINDINGS: Tomographic images: Moderate-sized fixed defects involving the inferior and septal osorio near the bas e. Small reversible defect involving the mid septal wall. Gated images: Normal wall motion and ejection fraction of 76%. EDV: 62 mL ESV: 15 mL TID: 1.13 IMPRESSION: Questionable small reversible defect involving the mid septal wall, may suggest a small region of isc hemia. Left ventricular ejection fraction:76%. Small end-systolic volume may relate to long-standing hyperte nsion.
[2024-09-05] MEDS: MORPHINE 2 MG/ML SYR ONE (00:13)
[2024-09-05] MEDS: MORPHINE 2 MG/ML SYR IV PRN (00:18)
[2024-09-05 05:56] LABS: Absolute Eosinophils 0.4 K/uL (0-0.5); Absolute Lymphocytes (CBC) 3.3 K/uL (0.7-4.9); Absolute Monocytes 0.6 K/uL (0.1-1.3); Absolute Neutrophil 4.4 K/uL (1.8-8.0); Basophils % 0.5 % (0-1.3); Eosinophils % 4.5 % (0-4.4); Hematocrit 40.6 % (36.0-45.0); Hemoglobin 14.2 g/dL (12.0-15.0); Lymphocytes % 37.5 % (15.3-44.8); MCH 33.2 pg (27.0-35.0); MCV 94.8 fL (80-100); MPV 7.7 fL (7.6-11.3); Monocytes % 6.4 % (3.3-12.3); Neutrophils % 51.1 % (41.7-73.7); Nucleated Red Blood Cells % 0.1 % (0-0); Platelets 225 thou/uL (152-406); RBC Red Blood Cell Count 4.28 M/uL (3.86-4.86); Red Cell Distribution Width 12.5 % (12.1-15.2)
[2024-09-05 06:08] LABS: HDL Cholesterol 47 mg/dL (40-60)
[2024-09-05 06:12] LABS: Magnesium 1.8 mg/dL (1.6-2.4)
[2024-09-05 06:19] LABS: LDL, Direct 85 mg/dL (100-129)
--- NOTE | 2024-09-05 07:42 | TREADPHA ---
DX: CHEST DISCOMFORT/ TROPONIN Date of Study: 09/04/2024 Ht: 5' 3 " Wt: 162 lb 0 oz Consulting Physician: NICOLA MEDICATIONS: ASPIRIN, LIPITOR, HEPARIN, ZOFRAN HISTORY: PHYSICIAL EXAMINATION: RESTING B.P.: 141/79 RESTING H.R.: 55 RESTING EKG: SINUS RHYTHM PROTOCOL: PHARMACOLOGIC EXERCISE TIME: 3:30 B.P. AT [place] STRESS: 119/77 IMPRESSION: LEXISCAN INJECTED. CARDIOLITE INJECTED (SEE NUCLEAR MEDICINE REPORT). NO COMPLAINTS OF CHEST PAIN OR SHORTNESS OF BREATH. NO VENTRICULAR TACHYCARDIA OR SUPRAVENTRICULAR TACHYCARDIA. NO ARRHYTHMIA NOTED.
[2024-09-05] MEDS: ASPIRIN EC 81 MG TAB PO SCH (08:54)
--- NOTE | 2024-09-05 09:56 | P.PN ---
Date of Service: 09/05/24 subjective admitted with chest pain, epigastric pain Review of Systems 10-point ROS is otherwise unremarkable unless listed HPI Physical Examination - Vital Signs reviewed - Physical Exam General: Alert, In no apparent distress, Oriented x3, afebrile HEENT: Atraumatic, PERRLA, Mucous membr. moist/pink, EOMI, Sclerae nonicteric Neck: Supple, 2+ carotid pulse no bruit, No LAD, Without JVD or thyroid abnormality Respiratory: Clear to auscultation bilaterally, Normal air movement Cardiovascular: Regular rate/rhythm, Normal S1 S2 Gastrointestinal: Normal bowel sounds, Soft and benign, Non-distended, No tenderness Musculoskeletal: No clubbing, No swelling, No tenderness Integumentary: No rashes Neurological: Normal gait, Normal speech, Normal strength at 5/5 x4 extr, Normal tone, Sensation intact, Cranial nerves 3-12 intact, Normal affect Lymphatics: No axilla or inguinal lymphadenopathy Assessment & Plan - Problems (Diagnosis) (1) Chest pain, rule out acute myocardial infarction Current Visit: Yes Status: Acute (2) Hypertension Current Visit: Yes Status: Acute (3) Type 2 diabetes mellitus Current Visit: Yes Status: Acute (4) Stenosis of left iliac artery Current Visit: Yes Status: Acute - Plan -High-sensitivity troponin -Cardiology consultation for PAD eval -Echocardiogram and stress test per cardiology recommendation -Repeat EKG -Work-up for other etiologies of cardiac chest pain if troponins remain negative -Lipid profile -Financial Coordinator regarding modifying risk for cardiac disease Discharge Plan: Home Plan to discharge in: 24 Hours - Advance Directives Does patient have a Living Will: No Does patient have a Durable POA for Healthcare: No - Code Status/Comfort Care Code Status Assessed: Yes Code Status: Full Code Critical Care: No Time Spent Managing PTS Care (In Minutes): 35
[2024-09-05] MEDS: APIXABAN 5 MG TABLET PO ONE (14:22)
--- NOTE | 2024-09-05 15:58 | P.PN ---
Subjective Date of Service: 09/05/24 Chief Complaint: Chest pain rule out acute coronary syndrome Subjective: No new changes, No C/O voiced, Tolerating diet, Ambulating, Improving Review of Systems 10-point ROS is otherwise unremarkable Physical Examination - Vital Signs Temperature: 97.2 F Blood Pressure: 125/72 Pulse: 69 Respirations: 18 Pulse Ox (%): 98 - Physical Exam General: Alert, In no apparent distress HEENT: Atraumatic, PERRLA, EOMI Neck: Supple, JVD not distended Respiratory: Clear to auscultation bilaterally, Normal air movement Cardiovascular: Regular rate/rhythm, Normal S1 S2 Gastrointestinal: Normal bowel sounds, No tenderness Musculoskeletal: No tenderness Integumentary: No rashes Neurological: Normal speech, Normal tone, Normal affect Lymphatics: No axilla or inguinal lymphadenopathy - Studies Laboratory Data (last 24 hrs) 09/04/24 15:36 APTT 33.6 Medications List Reviewed: Yes Assessment And Plan - Current Problems (Diagnosis) (1) Chest pain, rule out acute myocardial infarction Current Visit: Yes Status: Acute Plan: Nuclear stress test abnormal, NPO after midnight for coronary angiogram in am ASA 81 mg daily Liptor 40 mg daily (2) Hypertension Current Visit: Yes Status: Acute Plan: continue to monitor (3) Stenosis of left iliac artery Current Visit: Yes Status: Acute Plan: incidental finding of thrombus in left internal iliac artery Heparin drip if stress test is negative then start Eliquis 5 mg po BID outpatient follow up.
[2024-09-06] MEDS: lisinopriL 10 MG TAB PO SCH (07:57)
[2024-09-06] MEDS: NA CHLORIDE 0.9% 500 ML ONE (08:15)
[2024-09-06] MEDS ORDERED: HEPA 1000U/500MLS 2,000 UNIT/1,000 ML BAG IV ONE (08:33)
[2024-09-06] MEDS ORDERED: LIDOCAINE 1% 20 ML MDV ONE (08:33)
[2024-09-06] MEDS ORDERED: HEPARIN 10,000 UNIT/10 ML VIAL IV ONE (08:33)
[2024-09-06] MEDS: FENTANYL CITR 100 MCG/2 ML ONE (08:34)
[2024-09-06] MEDS ORDERED: TICAGRELOR 90 MG TABLET PO ONE (08:34)
[2024-09-06] MEDS ORDERED: HEPARIN 5000 UNIT/ML 1 ML VIAL ONE (08:34)
[2024-09-06] MEDS: MIDAZOLAM HCL 2 MG/2 ML INJ ONE (08:34)
[2024-09-06] MEDS ORDERED: ASPIRIN 325 MG TAB ONE (08:34)
[2024-09-06] MEDS ORDERED: ATROPINE SULF 1 MG/10 ML SYR IV ONE (08:34)
[2024-09-06] MEDS ORDERED: CLOPIDOGREL 75 MG TABLET ONE (08:34)
[2024-09-06] MEDS ORDERED: ASPIRIN 81 MG CHEWABLE TABLET ONE (08:58)
[2024-09-06] MEDS: METFORMIN ER 500 MG TAB PO SCH (09:00)
[2024-09-06] MEDS ORDERED: ATORVASTATIN 10 MG TAB PO SCH (09:00)
[2024-09-06] MEDS ORDERED: VERAPAMIL HCL 10 MG/4 ML VIAL IV ONE (09:26)
[2024-09-06] MEDS ORDERED: ACETAMINOPHEN 325 MG TABLET PO PRN (10:15)
[2024-09-06] MEDS: NA CHLORIDE 0.9% 1,000 ML IV SCH (10:15)
[2024-09-06] MEDS ORDERED: NITROGLYCERIN 0.4 MG/TAB SL PRN (10:15)
--- NOTE | 2024-09-06 10:29 | P.DS ---
Admission Date: 09/04/24 Discharge Date: 09/06/24 Disposition: ROUTINE DISCHARGE Discharge Condition: GOOD Reason for Admission: Chest pain rule out acute coronary syndrome Brief History of Present Illness: Patient is a pleasant 54-year-old female who presents to the hospital with chest discomfort. Pain was mainly in the left sternal region and she was short of breath. She came to the emergency room and initial troponins were negative. EKG was unremarkable. Patient was given antiplatelet therapy and statin therapy. Patient has a history of diabetes and hypertension but these are fairly well-controlled. At this time, patient will be admitted to the hospital for observation. 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 Patient will be n.p.o. pending cardiology evaluation. Started on heparin drip. - Physical Exam General: Alert, In no apparent distress, Oriented x3 HEENT: Atraumatic, PERRLA, Mucous membr. moist/pink, EOMI, Sclerae nonicteric Neck: Supple, 2+ carotid pulse no bruit, No LAD, Without JVD or thyroid abnormality Respiratory: Clear to auscultation bilaterally, Normal air movement Cardiovascular: Regular rate/rhythm, Normal S1 S2 Gastrointestinal: Normal bowel sounds, Soft and benign, Non-distended, No tenderness Musculoskeletal: No clubbing, No swelling, No tenderness Integumentary: No rashes Neurological: Normal gait, Normal speech, Normal strength at 5/5 x4 extr, Normal tone, Sensation intact, Cranial nerves 3-12 intact, Normal affect Lymphatics: No axilla or inguinal lymphadenopathy Hospital Course: Patient is a pleasant 54-year-old female who presents to the hospital with chest discomfort. Pain was mainly in the left sternal region and she was short of breath. She came to the emergency room and initial troponins were negative. EKG was unremarkable. Patient was given antiplatelet therapy and statin therapy. Patient has a history of diabetes and hypertension but these are fairly well-controlled. At this time, patient will be admitted to the hospital for observation. 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 cardiology evaluation., Plan for angiogram, started on heparin drip. Will transition to p.o. anticoagulation prior to was evaluated by cardiology, taken to [facility]. Cardiac cath 09/06-normal coronaries, small LAD CT Thrombus left common iliac artery results in a severe stenosis-discharged on Eliquis 5 mg 1 p.o. twice daily, aspirin 162 mg daily Abdominal ultrasound No significant abnormalities displayed Lower extremity Doppler Mild arterial disease involving the mid to distal arteries left lower extremity Nuclear stress test abnormal showning reversible septal perfusion defect, coronary angiogram done and shows normal coronaries with small LAD. ASA at discharge mg daily Liptor 40 mg daily Assessment Chest pain rule out MD-status post cardiac cath--normal coronaries, small LAD Hypertension Diabetes mellitus Thrombosed stenosis to the left iliac artery-will discharge home on anticoagulation follow-up with cardiology after discharge INSTRUCTIONS: Physician Discharge Instructions: -Follow-up with cardiology after -Follow-up with PCP in 1 to 2 weeks -Please call Dr. Araujo at [phone] if any questions regarding hospital stay -Please call nursing station at [phone] if any nursing or medication questions -Return to the emergency room if symptoms worsen Diet: ADA, low sodium Activity: Fall precautions Vital Signs/Physical Exam: Temp Pulse Resp BP Pulse Ox 97.0 F 66 15 148/77 H 99 09/06/24 08:00 09/06/24 08:00 09/06/24 08:00 09/06/24 08:00 09/06/24 08:00 Laboratory Data at Discharge: WBC 8.70 thou/uL (4.3-10.9) 09/05/24 04:40 Hgb 14.2 g/dL (12.0-15.0) 09/05/24 04:40 Hct 40.6 % (36.0-45.0) 09/05/24 04:40 Plt Count 225 thou/uL (152-406) 09/05/24 04:40 PT 10.8 SECONDS (9.4-12.5) 09/04/24 07:15 INR 0.96 09/04/24 07:15 APTT Cancelled 09/05/24 16:00 Sodium 136 mEq/L (136-145) 09/05/24 04:40 Potassium 4.0 mEq/L (3.5-5.1) 09/05/24 04:40 BUN 9 mg/dL (7-18) 09/05/24 04:40 Creatinine 0.61 mg/dL (0.55-1.02) 09/05/24 04:40 Glucose 117 mg/dL (74-106) H 09/05/24 04:40 Magnesium 1.8 mg/dL (1.6-2.4) 09/05/24 04:40 Total Bilirubin 0.5 mg/dL (0.2-1.0) 09/04/24 06:06 AST 21 U/L (15-37) 09/04/24 06:06 ALT 34 U/L (13-56) 09/04/24 06:06 Alkaline Phosphatase 96 U/L (45-117) 09/04/24 06:06 Triglycerides 505 mg/dL (<150) H 09/05/24 04:40 Cholesterol 167 mg/dL (<200) 09/05/24 04:40 LDL Cholesterol Direct 85 mg/dL (100-129) L 09/05/24 04:40 HDL Cholesterol 47 mg/dL (40-60) 09/05/24 04:40 Cholesterol/HDL Ratio 3.55 09/05/24 04:40 Lipase 33 U/L (13-75) 09/04/24 06:06 Home Medications: Atorvastatin Calcium [Lipitor*] 10 mg PO DAILY 09/04/24 Lisinopril [Zestril] 10 mg PO DAILY 09/04/24 Metformin ER [Glucophage ER*] 500 mg PO DAILY 09/04/24 Aspirin [Aspirin EC 81 MG] 162 mg PO DAILY #60 tab 09/05/24 Apixaban [Eliquis] 5 mg PO BID #60 tablet 09/06/24 New Medications: Aspirin [Aspirin EC 81 MG] 162 mg PO DAILY #60 tab Apixaban [Eliquis] 5 mg PO BID #60 tablet Physician Discharge Instructions: PROBLEM: Chest Pain, Angina GOAL: Clear understanding of disease process INSTRUCTIONS: Diet: AHA Activity: Fall precautions Patient is a pleasant 54-year-old female who presents to the hospital with chest discomfort. Pain was mainly in the left sternal region and she was short of breath. She came to the emergency room and initial troponins were negative. EKG was unremarkable. Patient was given antiplatelet therapy and statin therapy. Patient has a history of diabetes and hypertension but these are fairly well-controlled. At this time, patient will be admitted to the hospital for observation. 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 cardiology evaluation., Plan for angiogram, started on heparin drip. Will transition to p.o. anticoagulation prior to was evaluated by cardiology, taken to [facility].normal coronaries with small LAD. Discharge medications Eliquis 5 mg 1 p.o. twice daily Educated on anticoagulation prior to discharge Aspirin 81 mg 2 tablets daily *Hold metformin for 3 days after cardiac cath Cardiac cath 09/06 coronary angiogram done and shows normal coronaries with sm all LAD. CT Thrombus left common iliac artery results in a severe stenosis Abdominal ultrasound No significant abnormalities displayed Lower extremity Doppler Mild arterial disease involving the mid to distal arteries left lower extremity Assessment Chest pain rule out MD-status post cardiac cath Hypertension Diabetes mellitus Thrombosed stenosis to the left iliac artery-will discharge home on anticoagulation follow-up with cardiology after discharge INSTRUCTIONS: Physician Discharge Instructions: -Follow-up with cardiology after -Follow-up with PCP in 1 to 2 weeks -Please call Dr. Araujo at [phone] if any questions regarding hospital stay -Please call nursing station at [phone] if any nursing or medication questions -Return to the emergency room if symptoms worsen Diet: ADA, low sodium Activity: Fall precautions Diet: AHA Activity: Fall precautions Followup: Guille Krueger MD [ACTIVE - CAN ADMIT] - 1-2 Weeks NONE,NONE [Primary Care Provider] - Time spent managing pt's care (in minutes): 55
--- NOTE | 2024-09-06 10:53 | P.PN ---
Subjective Date of Service: 09/06/24 Chief Complaint: Chest pain rule out acute coronary syndrome Subjective: No new changes, No C/O voiced, Tolerating diet, Ambulating, Improving Review of Systems 10-point ROS is otherwise unremarkable Physical Examination - Vital Signs Temperature: 97.0 F Blood Pressure: 148/77 Pulse: 66 Respirations: 15 Pulse Ox (%): 99 - Physical Exam General: Alert, In no apparent distress HEENT: Atraumatic, PERRLA, EOMI Neck: Supple, JVD not distended Respiratory: Clear to auscultation bilaterally, Normal air movement Cardiovascular: Regular rate/rhythm, Normal S1 S2 Gastrointestinal: Normal bowel sounds, No tenderness Musculoskeletal: No tenderness Integumentary: No rashes Neurological: Normal speech, Normal tone, Normal affect Lymphatics: No axilla or inguinal lymphadenopathy - Studies Medications List Reviewed: Yes Assessment And Plan - Current Problems (Diagnosis) (1) Chest pain, rule out acute myocardial infarction Current Visit: Yes Status: Acute Plan: Nuclear stress test abnormal showning reversible septal perfusion defect, coronary angiogram done and shows normal coronaries with small LAD. ASA 81 mg daily Liptor 40 mg daily (2) Hypertension Current Visit: Yes Status: Acute Plan: continue Lisinopril. (3) Stenosis of left iliac artery Current Visit: Yes Status: Acute Plan: incidental finding of thrombus in left internal iliac artery Heparin drip Eliquis 5 mg po BID outpatient follow up with arterial duplex in 3 months.
--- NOTE | 2024-09-06 11:59 | EKG ---
Test Date: 2024-09-04 Test Time: 05:57:47 Experimental Physicist: TRAVON MEASUREMENT RESULTS: Intervals: Rate: 94 CT: 146 QRSD: 64 QT: 356 QTc: 445 [place]: P: 61 CT: 146 QRS: 24 T: 30 INTERPRETIVE STATEMENTS: Normal sinus rhythm with sinus arrhythmia Normal ECG Compared to ECG 11/09/2022 18:35:12 No significant changes Electronically Signed On 09-06-24 11:53:45 CDT by Guille Krueger
--- NOTE | 2024-09-06 12:44 | OP ---
Date of Procedure: 09/06/2024 Surgeon: Guille Krueger Procedure Performed: Selective coronary angiogram. Indication For Procedure: Unstable angina, abnormal stress test. Complications: None. Estimated Blood Loss: Less than 50 cc. Access: Right radial, closed by TR band. Sedation Time: 20 minutes with 2 of Versed and 50 of fentanyl. Description Of Procedure: After risks, benefits, and alternatives were explained to the patient, the patient agreed to proceed with the procedure and signed informed consent. The patient was brought b k to the dental laboratory manager, prepped and draped in sterile fashion. Time-out was performed. Sedation was ad ministered. Next, right radial access was obtained. [place] 4 catheter was advanced over J-wire to th e aortic root. Selective angiogram was done. Catheter was pulled back over J-wire. Sheath was jacob armond. TR band was applied. Hemostasis achieved. The patient was moved back to recovery in stable co ndition. Findings: 1.Left main, normal. 2.LAD, normal, mid to distal small with mild luminal irregularities. 3.Left circ, mild luminal irregularities. 4.RCA, mild luminal irregularities. Assessment/plan: 1.Normal coronaries with small mid to distal LAD. 2.Continue medical management. ROLAND/MODL Voice ID: [id number] Report ID: [id number]
[2024-09-06 17:19] VITALS: BP 90/65; TEMP 97.3
[2024-09-06 18:12] VITALS: O2SAT 98
== END 2024-09-06 18:40 | disposition home or self-care (01) | DRG 281 ==
LOC: ER 05:47 → ERHOLD 07:42 → 2ND 14:00 → OBSVTOIN 17:45
PROVIDERS: ADMIT Internal Medicine; ATTEND Hospitalist
PROC: 4A023N7 Measurement of Cardiac Sampling and Pressure, Left Heart, Percutaneous Approach (ICD-10-PCS; principal; 2024-09-06)
PROC: B2111ZZ Fluoroscopy of Multiple Coronary Arteries using Low Osmolar Contrast (ICD-10-PCS; 2024-09-06)
DX: I21.9 Acute myocardial infarction, unspecified (principal); I74.5 Embolism and thrombosis of iliac artery; E78.00 Pure hypercholesterolemia, unspecified; I10 Essential (primary) hypertension; E66.9 Obesity, unspecified; E11.65 Type 2 diabetes mellitus with hyperglycemia; F17.210 Nicotine dependence, cigarettes, uncomplicated; Z88.0 Allergy status to penicillin; Z79.82 Long term (current) use of aspirin; Z68.28 Body mass index [BMI] 28.0-28.9, adult; Z79.01 Long term (current) use of anticoagulants; Z79.84 Long term (current) use of oral hypoglycemic drugs; Z79.899 Other long term (current) drug therapy
CPT/HCPCS: 36415; 71045; 71275; 74175; 76705; 76937; 78452; 80048; 80061; 80076; 81001; 82947; 83690; 83735; 83880; 84484; 85025; 85610; 85730; 93005; 93017; 93454; 93926; 96361; 96374; 96375; 99152; 99285; A9500; C1893; G0378; J0461; J1644; J2001; J2250; J2270; J2405; J2785; J3010; J7030; J7040; Q9966; Q9967